=== PATIENT | male | born 1960 | race Caucasian/White ===

== ENCOUNTER → 2019-02-21 | Day surgery (SDC) | payer BC ==
[~2019-02-21] MED LIST: FOLIC ACID1 MG PO; GLUCAGON FOR INJ 1 MG VIAL ONE; HYOSCYAMINE SULFATE 0.5 MG/ML INJ ONE; KEFLEX250 MG; KETAMINE HCL INJ 50 MG/ML 10 ML VIAL ONE; LASIX20 MG PO; LIDOCAINE HCL 2% LOCAL INJ 5 ML SDV VIAL INJ ONE; MIDAZOLAM HCL 2 MG/2 ML VIAL ONE; MULTI-VITAMIN1 EACH; NEOSTIGMINE 1 MG/ML 10ML VIAL ONE; PANTOPRAZOLE SO40 MG; PROPOFOL IV EMULSION 10 MG/ML 50 ML VIAL ONE; THIAMINE; ULTRAM50 MG; VITAMIN D400 UNIT; XIFAXAN200 MG
--- OUTSIDE RECORDS SUMMARY | 2019-02-21 08:56 | XMS REPORT ---
Author Author [facility] Address Unknown Phone Unavailable Care Team Providers Care Harness And Bag Inspector Name Role Phone Unavailable Unavailable Payers Payer Name Policy Type Policy Number Effective Date Expiration Date Problems This patient has no known problems. Allergies, Adverse Reactions, Alerts Allergy Name Allergy Type Status Severity Reaction(s) Onset Date Inactive Date Treating Clinician Comments No Known Allergies DA Active U 2018-12-05 00:00:00 No Known Drug Allergies DA Active U 2018-07-26 00:00:00 No Known Drug Allergies DA Active U 2018-07-25 00:00:00 No Known Allergies DA Active U 2016-04-25 00:00:00 Medications This patient has no known medications. Results Test Description Test Time Test Comments Text Results Atomic Results Result Comments GLUBED 2019-01-04 16:38:00 GLUBED (test code=GLUBED) 197 mg/dL 74-106 Performed by certified knotting machine operator portable at [facility] [id number] 11:30:00* Test Item Value Reference Range Comments GLUBED (test code=GLUBED) 133 mg/dL 74-106 Performed by certified knotting machine operator portable at [facility] COMPREHENSIVE METABOLIC [id number] 05:05:00* Test Item Value Reference Range Comments SODIUM (test code=NA) 139 mmol/L 136-145 POTASSIUM (test code=K) 4.0 mmol/L 3.5-5.1 CHLORIDE (test code=CL) 103.0 mmol/L 98-107 CARBON DIOXIDE (test code=CO2) 31.0 mmol/L 21-32 ANION GAP (test code=GAP) 9.0 10-20 GLUCOSE (test code=GLU) 83 mg/dL 74-106 BLOOD UREA NITROGEN (test code=BUN) 15 mg/dL 7-18 GLOMERULAR FILTRATION RATE (test code=GFR) > 60 mL/min >=60 Estimated GFR by using Modified MDRD formula.Chronic kidney disease is defined as either kidney damageor GFR <60 mL/min/1.73 m2 for >3 months. CREATININE (test code=CREAT) 0.50 mg/dL 0.7-1.3 BUN/CREATININE RATIO (test code=BUN/CREA) 30.0 10-20 TOTAL PROTEIN (test code=PROT) 6.7 gram/dL 6.4-8.2 ALBUMIN (test code=ALB) 3.0 g/dL 3.4-5.0 GLOBULIN (test code=GLOB) 3.7 gram/dL 2.7-4.2 ALBUMIN/GLOBULIN RATIO (test code=A/G) 0.8 0.75-1.50 CALCIUM (test code=CA) 8.7 mg/dL 8.5-10.1 BILIRUBIN TOTAL (test code=BILT) 0.20 mg/dL 0.0-1.0 SGOT/AST (test code=AST) 26 IUnit/L 15-37 SGPT/ALT (test code=ALT) 30 IUnit/L 12-78 ALKALINE PHOSPHATASE TOTAL (test code=ALKP) 107 IUnit/L 45-117 Note change in reference range due to change in reagent. COMPREHENSIVE METABOLIC [id number] 04:58:00* Test Item Value Reference Range Comments SODIUM (test code=NA) 139 mmol/L 136-145 POTASSIUM (test code=K) 4.0 mmol/L 3.5-5.1 CHLORIDE (test code=CL) 103.0 mmol/L 98-107 CARBON DIOXIDE (test code=CO2) mmol/L 21-32 ANION GAP (test code=GAP) 10-20 GLUCOSE (test code=GLU) mg/dL 74-106 BLOOD UREA NITROGEN (test code=BUN) mg/dL 7-18 GLOMERULAR FILTRATION RATE (test code=GFR) mL/min >=60 CREATININE (test code=CREAT) mg/dL 0.7-1.3 BUN/CREATININE RATIO (test code=BUN/CREA) 10-20 TOTAL PROTEIN (test code=PROT) gram/dL 6.4-8.2 ALBUMIN (test code=ALB) g/dL 3.4-5.0 GLOBULIN (test code=GLOB) gram/dL 2.7-4.2 ALBUMIN/GLOBULIN RATIO (test code=A/G) 0.75-1.50 CALCIUM (test code=CA) mg/dL 8.5-10.1 BILIRUBIN TOTAL (test code=BILT) mg/dL 0.0-1.0 SGOT/AST (test code=AST) IUnit/L 15-37 SGPT/ALT (test code=ALT) IUnit/L 12-78 ALKALINE PHOSPHATASE TOTAL (test code=ALKP) IUnit/L 45-117 CBC W/AUTO [id number] 04:58:00* Test Item Value Reference Range Comments WHITE BLOOD CELL (test code=WBC) 13.4 K/mm3 4.5-12.5 RED BLOOD CELL (test code=RBC) 3.69 mill/mm3 4.0-5.8 HEMOGLOBIN (test code=HGB) 10.9 gram/dL 13.0-17.5 HEMATOCRIT (test code=HCT) 36.0 % 42.0-52.0 MEAN CELL VOLUME (test code=MCV) 97.6 fL 80-98 MEAN CELL HGB (test code=MCH) 29.5 picogram 27.0-33.0 MEAN CELL HGB CONCETRATION (test code=MCHC) 30.3 gram/dL 33.0-36.0 RED CELL DISTRIBUTION WIDTH (test code=RDW) 14.6 % 11.6-16.2 RED CELL DISTRIBUTION WIDTH SD (test code=RDW-SD) 52.5 fL 37.0-51.0 PLATELET COUNT (test code=PLT) 563 K/mm3 150-450 MEAN PLATELET VOLUME (test code=MPV) 9.3 fL 6.7-11.0 NEUTROPHIL % (test code=NT%) 64.2 % 39.0-69.0 IMMATURE GRANULOCYTE % (test code=IG%) 1.3 % 0.0-5.0 LYMPHOCYTE % (test code=LY%) 25.0 % 25.0-55.0 MONOCYTE % (test code=MO%) 7.3 % 0.0-10.0 EOSINOPHIL % (test code=EO%) 1.7 % 0.0-5.0 BASOPHIL % (test code=BA%) 0.5 % 0.0-1.0 NUCLEATED RBC % (test code=NRBC%) 0.0 % 0-0 NEUTROPHIL # (test code=NT#) 8.57 K/mm3 1.8-7.7 IMMATURE GRANULOCYTE # (test code=IG#) 0.17 x10 3/uL 0-0.03 LYMPHOCYTE # (test code=LY#) 3.34 K/mm3 1.0-5.0 MONOCYTE # (test code=MO#) 0.98 K/mm3 0-0.8 EOSINOPHIL # (test code=EO#) 0.23 K/mm3 0.0-0.5 BASOPHIL # (test code=BA#) 0.07 K/mm3 0.0-0.2 NUCLEATED RBC # (test code=NRBC#) 0.00 K/mm3 0.0-0.1 COMPREHENSIVE METABOLIC [id number] 04:43:00* Test Item Value Reference Range Comments SODIUM (test code=NA) 137 mmol/L 136-145 POTASSIUM (test code=K) 3.9 mmol/L 3.5-5.1 CHLORIDE (test code=CL) 102.0 mmol/L 98-107 CARBON DIOXIDE (test code=CO2) 32.0 mmol/L 21-32 ANION GAP (test code=GAP) 6.9 10-20 GLUCOSE (test code=GLU) 89 mg/dL 74-106 BLOOD UREA NITROGEN (test code=BUN) 11 mg/dL 7-18 GLOMERULAR FILTRATION RATE (test code=GFR) > 60 mL/min >=60 Estimated GFR by using Modified MDRD formula.Chronic kidney disease is defined as either kidney damageor GFR <60 mL/min/1.73 m2 for >3 months. CREATININE (test code=CREAT) 0.70 mg/dL 0.7-1.3 BUN/CREATININE RATIO (test code=BUN/CREA) 16.8 10-20 TOTAL PROTEIN (test code=PROT) 6.4 gram/dL 6.4-8.2 ALBUMIN (test code=ALB) 2.7 g/dL 3.4-5.0 GLOBULIN (test code=GLOB) 3.7 gram/dL 2.7-4.2 ALBUMIN/GLOBULIN RATIO (test code=A/G) 0.7 0.75-1.50 CALCIUM (test code=CA) 8.3 mg/dL 8.5-10.1 BILIRUBIN TOTAL (test code=BILT) 0.20 mg/dL 0.0-1.0 SGOT/AST (test code=AST) 18 IUnit/L 15-37 SGPT/ALT (test code=ALT) 17 IUnit/L 12-78 ALKALINE PHOSPHATASE TOTAL (test code=ALKP) 90 IUnit/L 45-117 Note change in reference range due to change in reagent. COMPREHENSIVE METABOLIC [id number] 04:35:00* Test Item Value Reference Range Comments SODIUM (test code=NA) 137 mmol/L 136-145 POTASSIUM (test code=K) 3.9 mmol/L 3.5-5.1 CHLORIDE (test code=CL) 102.0 mmol/L 98-107 CARBON DIOXIDE (test code=CO2) mmol/L 21-32 ANION GAP (test code=GAP) 10-20 GLUCOSE (test code=GLU) mg/dL 74-106 BLOOD UREA NITROGEN (test code=BUN) mg/dL 7-18 GLOMERULAR FILTRATION RATE (test code=GFR) mL/min >=60 CREATININE (test code=CREAT) mg/dL 0.7-1.3 BUN/CREATININE RATIO (test code=BUN/CREA) 10-20 TOTAL PROTEIN (test code=PROT) gram/dL 6.4-8.2 ALBUMIN (test code=ALB) g/dL 3.4-5.0 GLOBULIN (test code=GLOB) gram/dL 2.7-4.2 ALBUMIN/GLOBULIN RATIO (test code=A/G) 0.75-1.50 CALCIUM (test code=CA) mg/dL 8.5-10.1 BILIRUBIN TOTAL (test code=BILT) mg/dL 0.0-1.0 SGOT/AST (test code=AST) IUnit/L 15-37 SGPT/ALT (test code=ALT) IUnit/L 12-78 ALKALINE PHOSPHATASE TOTAL (test code=ALKP) IUnit/L 45-117 CBC W/AUTO [id number] 04:25:00* Test Item Value Reference Range Comments WHITE BLOOD CELL (test code=WBC) 15.0 K/mm3 4.5-12.5 RED BLOOD CELL (test code=RBC) 3.44 mill/mm3 4.0-5.8 HEMOGLOBIN (test code=HGB) 10.2 gram/dL 13.0-17.5 HEMATOCRIT (test code=HCT) 33.4 % 42.0-52.0 MEAN CELL VOLUME (test code=MCV) 97.1 fL 80-98 MEAN CELL HGB (test code=MCH) 29.7 picogram 27.0-33.0 MEAN CELL HGB CONCETRATION (test code=MCHC) 30.5 gram/dL 33.0-36.0 RED CELL DISTRIBUTION WIDTH (test code=RDW) 14.5 % 11.6-16.2 RED CELL DISTRIBUTION WIDTH SD (test code=RDW-SD) 50.7 fL 37.0-51.0 PLATELET COUNT (test code=PLT) 592 K/mm3 150-450 MEAN PLATELET VOLUME (test code=MPV) 9.2 fL 6.7-11.0 NEUTROPHIL % (test code=NT%) 70.1 % 39.0-69.0 IMMATURE GRANULOCYTE % (test code=IG%) 1.1 % 0.0-5.0 LYMPHOCYTE % (test code=LY%) 20.4 % 25.0-55.0 MONOCYTE % (test code=MO%) 7.2 % 0.0-10.0 EOSINOPHIL % (test code=EO%) 0.9 % 0.0-5.0 BASOPHIL % (test code=BA%) 0.3 % 0.0-1.0 NUCLEATED RBC % (test code=NRBC%) 0.0 % 0-0 NEUTROPHIL # (test code=NT#) 10.53 K/mm3 1.8-7.7 IMMATURE GRANULOCYTE # (test code=IG#) 0.17 x10 3/uL 0-0.03 LYMPHOCYTE # (test code=LY#) 3.07 K/mm3 1.0-5.0 MONOCYTE # (test code=MO#) 1.09 K/mm3 0-0.8 EOSINOPHIL # (test code=EO#) 0.14 K/mm3 0.0-0.5 BASOPHIL # (test code=BA#) 0.04 K/mm3 0.0-0.2 NUCLEATED RBC # (test code=NRBC#) 0.00 K/mm3 0.0-0.1 MANUAL DIFF REQUIRED (test code=MDIFF) NO [id number] 15:56:00* Test Item Value Reference Range Comments GLUBED (test code=GLUBED) 132 mg/dL 74-106 Performed by certified knotting machine operator portable at [facility] CBC W/MANUAL [id number] 15:37:00* Test Item Value Reference Range Comments WHITE BLOOD CELL (test code=WBC) 12.4 K/mm3 4.5-12.5 RED BLOOD CELL (test code=RBC) 3.49 mill/mm3 4.0-5.8 HEMOGLOBIN (test code=HGB) 10.5 gram/dL 13.0-17.5 HEMATOCRIT (test code=HCT) 34.0 % 42.0-52.0 MEAN CELL VOLUME (test code=MCV) 97.4 fL 80-98 MEAN CELL HGB (test code=MCH) 30.1 picogram 27.0-33.0 MEAN CELL HGB CONCETRATION (test code=MCHC) 30.9 gram/dL 33.0-36.0 RED CELL DISTRIBUTION WIDTH (test code=RDW) 13.9 % 11.6-16.2 RED CELL DISTRIBUTION WIDTH SD (test code=RDW-SD) 49.2 fL 37.0-51.0 PLATELET COUNT (test code=PLT) 600 K/mm3 150-450 MEAN PLATELET VOLUME (test code=MPV) 9.2 fL 6.7-11.0 IMMATURE GRANULOCYTE % (test code=IG%) 0.8 % 0.0-5.0 NUCLEATED RBC % (test code=NRBC%) 0.0 % 0-0 NEUTROPHIL # (test code=NT#) 8.09 K/mm3 1.8-7.7 IMMATURE GRANULOCYTE # (test code=IG#) 0.10 x10 3/uL 0-0.03 LYMPHOCYTE # (test code=LY#) 2.95 K/mm3 1.0-5.0 MONOCYTE # (test code=MO#) 1.16 K/mm3 0-0.8 EOSINOPHIL # (test code=EO#) 0.08 K/mm3 0.0-0.5 BASOPHIL # (test code=BA#) 0.05 K/mm3 0.0-0.2 NUCLEATED RBC # (test code=NRBC#) 0.00 K/mm3 0.0-0.1 MANUAL DIFF REQUIRED (test code=MDIFF) YES STAIN ACCEPTABILITY (test code=STN ACCEPTABLE) STAIN ACCEPTABLE TOTAL CELLS COUNTED (test code=TCC) 100 #CELLS SEGMENTED NEUTROPHILS (test code=SEG) 60 % 39-69 BAND NEUTROPHIL (test code=BAND) 2 % 0-10 LYMPHOCYTE (test code=LYMPH) 27 % 25-55 MONOCYTE (test code=MON) 11 % 0-10 PLATELET ESTIMATE (test code=PLTEST) INCREASED PLATELET MORPHOLOGY (test code=PLTMORPH) NORMAL - XR CHEST 1 [id number] 10:16:00 FAX: Ethel Linder MD [phone] [place]: St: ADM FAX: Emre Fraire MD [phone] Name: STACY PIZARRO [facility] : 1960 Age/S: 58/M [address] [facility] Unit #: [id number] Loc: [place] [address] Phys: Emre Olivo MD Acct: [id number] Dis Date: Status: ADM IN PHONE #: [phone] Exam Date: 12/30/2018 0940 FAX #: [phone] Reason: atelecctasis EXAMS: CPT CODE: [id number] XR CHEST 1 V [id number] HISTORY: Atelectasis. COMPARISON: December 24, 2018. Right catheter has been removed. Mild scarring. Small left effusion with dependent changes is improved. Right lung is clear. Cardiomegaly. IMPRESSION: Trace to small left effusion with subsegmental atelectasis. No infiltrates or congestion. at 1016 Reported and signed by: Dino Santos M.D. CC: Ethel Mary MD; Emre Olivo MD Technologist: Meeta Grier(Esteban) Trnscrd Date/Time/By: 12/30/2018 (101 6) : By: [email or web address] Orig Print D/T: S: 12/30/2018 (1014) PAGE 1 Signed Report [id number] 07:20:00* Test Item Value Reference Range Comments GLUBED (test code=GLUBED) 87 mg/dL 74-106 Performed by certified knotting machine operator portable at [facility] CBC W/MANUAL [id number] 04:53:00* Test Item Value Reference Range Comments WHITE BLOOD CELL (test code=WBC) 12.4 K/mm3 4.5-12.5 RED BLOOD CELL (test code=RBC) 3.49 mill/mm3 4.0-5.8 HEMOGLOBIN (test code=HGB) 10.5 gram/dL 13.0-17.5 HEMATOCRIT (test code=HCT) 34.0 % 42.0-52.0 MEAN CELL VOLUME (test code=MCV) 97.4 fL 80-98 MEAN CELL HGB (test code=MCH) 30.1 picogram 27.0-33.0 MEAN CELL HGB CONCETRATION (test code=MCHC) 30.9 gram/dL 33.0-36.0 RED CELL DISTRIBUTION WIDTH (test code=RDW) 13.9 % 11.6-16.2 RED CELL DISTRIBUTION WIDTH SD (test code=RDW-SD) 49.2 fL 37.0-51.0 PLATELET COUNT (test code=PLT) 600 K/mm3 150-450 MEAN PLATELET VOLUME (test code=MPV) 9.2 fL 6.7-11.0 IMMATURE GRANULOCYTE % (test code=IG%) 0.8 % 0.0-5.0 NUCLEATED RBC % (test code=NRBC%) 0.0 % 0-0 NEUTROPHIL # (test code=NT#) 8.09 K/mm3 1.8-7.7 IMMATURE GRANULOCYTE # (test code=IG#) 0.10 x10 3/uL 0-0.03 LYMPHOCYTE # (test code=LY#) 2.95 K/mm3 1.0-5.0 MONOCYTE # (test code=MO#) 1.16 K/mm3 0-0.8 EOSINOPHIL # (test code=EO#) 0.08 K/mm3 0.0-0.5 BASOPHIL # (test code=BA#) 0.05 K/mm3 0.0-0.2 NUCLEATED RBC # (test code=NRBC#) 0.00 K/mm3 0.0-0.1 MANUAL DIFF REQUIRED (test code=MDIFF) YES STAIN ACCEPTABILITY (test code=STN ACCEPTABLE) STAIN ACCEPTABLE TOTAL CELLS COUNTED (test code=TCC) 100 #CELLS SEGMENTED NEUTROPHILS (test code=SEG) 60 % 39-69 BAND NEUTROPHIL (test code=BAND) 2 % 0-10 LYMPHOCYTE (test code=LYMPH) 27 % 25-55 MONOCYTE (test code=MON) 11 % 0-10 PLATELET ESTIMATE (test code=PLTEST) INCREASED PLATELET MORPHOLOGY (test code=PLTMORPH) BASIC METABOLIC [id number] 04:49:00* Test Item Value Reference Range Comments SODIUM (test code=NA) 140 mmol/L 136-145 POTASSIUM (test code=K) 4.1 mmol/L 3.5-5.1 CHLORIDE (test code=CL) 104.0 mmol/L 98-107 CARBON DIOXIDE (test code=CO2) 27.0 mmol/L 21-32 ANION GAP (test code=GAP) 13.1 10-20 GLUCOSE (test code=GLU) 85 mg/dL 74-106 BLOOD UREA NITROGEN (test code=BUN) 12 mg/dL 7-18 GLOMERULAR FILTRATION RATE (test code=GFR) > 60 mL/min >=60 Estimated GFR by using Modified MDRD formula.Chronic kidney disease is defined as either kidney damageor GFR <60 mL/min/1.73 m2 for >3 months. CREATININE (test code=CREAT) 0.50 mg/dL 0.7-1.3 BUN/CREATININE RATIO (test code=BUN/CREA) 22.1 10-20 CALCIUM (test code=CA) 8.6 mg/dL 8.5-10.1 [id number] 04:49:00* Test Item Value Reference Range Comments MAGNESIUM (test code=MAG) 1.9 mg/dL 1.8-2.4 BASIC METABOLIC [id number] 04:43:00* Test Item Value Reference Range Comments SODIUM (test code=NA) 140 mmol/L 136-145 POTASSIUM (test code=K) 4.1 mmol/L 3.5-5.1 CHLORIDE (test code=CL) 104.0 mmol/L 98-107 CARBON DIOXIDE (test code=CO2) mmol/L 21-32 ANION GAP (test code=GAP) 10-20 GLUCOSE (test code=GLU) mg/dL 74-106 BLOOD UREA NITROGEN (test code=BUN) mg/dL 7-18 GLOMERULAR FILTRATION RATE (test code=GFR) mL/min >=60 CREATININE (test code=CREAT) mg/dL 0.7-1.3 BUN/CREATININE RATIO (test code=BUN/CREA) 10-20 CALCIUM (test code=CA) mg/dL 8.5-10.1 [id number] 04:43:00* Test Item Value Reference Range Comments MAGNESIUM (test code=MAG) mg/dL 1.8-2.4 CBC W/MANUAL [id number] 04:31:00* Test Item Value Reference Range Comments WHITE BLOOD CELL (test code=WBC) 12.4 K/mm3 4.5-12.5 RED BLOOD CELL (test code=RBC) 3.49 mill/mm3 4.0-5.8 HEMOGLOBIN (test code=HGB) 10.5 gram/dL 13.0-17.5 HEMATOCRIT (test code=HCT) 34.0 % 42.0-52.0 MEAN CELL VOLUME (test code=MCV) 97.4 fL 80-98 MEAN CELL HGB (test code=MCH) 30.1 picogram 27.0-33.0 MEAN CELL HGB CONCETRATION (test code=MCHC) 30.9 gram/dL 33.0-36.0 RED CELL DISTRIBUTION WIDTH (test code=RDW) 13.9 % 11.6-16.2 RED CELL DISTRIBUTION WIDTH SD (test code=RDW-SD) 49.2 fL 37.0-51.0 PLATELET COUNT (test code=PLT) 600 K/mm3 150-450 MEAN PLATELET VOLUME (test code=MPV) 9.2 fL 6.7-11.0 IMMATURE GRANULOCYTE % (test code=IG%) 0.8 % 0.0-5.0 NUCLEATED RBC % (test code=NRBC%) 0.0 % 0-0 NEUTROPHIL # (test code=NT#) 8.09 K/mm3 1.8-7.7 IMMATURE GRANULOCYTE # (test code=IG#) 0.10 x10 3/uL 0-0.03 LYMPHOCYTE # (test code=LY#) 2.95 K/mm3 1.0-5.0 MONOCYTE # (test code=MO#) 1.16 K/mm3 0-0.8 EOSINOPHIL # (test code=EO#) 0.08 K/mm3 0.0-0.5 BASOPHIL # (test code=BA#) 0.05 K/mm3 0.0-0.2 NUCLEATED RBC # (test code=NRBC#) 0.00 K/mm3 0.0-0.1 MANUAL DIFF REQUIRED (test code=MDIFF) YES STAIN ACCEPTABILITY (test code=STN ACCEPTABLE) TOTAL CELLS COUNTED (test code=TCC) #CELLS SEGMENTED NEUTROPHILS (test code=SEG) % 39-69 LYMPHOCYTE (test code=LYMPH) % 25-55 MONOCYTE (test code=MON) % 0-10 MORPHOLOGY COMMENT (test code=MOC) PLATELET ESTIMATE (test code=PLTEST) PLATELET MORPHOLOGY (test code=PLTMORPH) CBC W/MANUAL [id number] 04:28:00* Test Item Value Reference Range Comments WHITE BLOOD CELL (test code=WBC) 12.4 K/mm3 4.5-12.5 RED BLOOD CELL (test code=RBC) 3.49 mill/mm3 4.0-5.8 HEMOGLOBIN (test code=HGB) 10.5 gram/dL 13.0-17.5 HEMATOCRIT (test code=HCT) 34.0 % 42.0-52.0 MEAN CELL VOLUME (test code=MCV) 97.4 fL 80-98 MEAN CELL HGB (test code=MCH) 30.1 picogram 27.0-33.0 MEAN CELL HGB CONCETRATION (test code=MCHC) 30.9 gram/dL 33.0-36.0 RED CELL DISTRIBUTION WIDTH (test code=RDW) 13.9 % 11.6-16.2 RED CELL DISTRIBUTION WIDTH SD (test code=RDW-SD) 49.2 fL 37.0-51.0 PLATELET COUNT (test code=PLT) 600 K/mm3 150-450 MEAN PLATELET VOLUME (test code=MPV) 9.2 fL 6.7-11.0 IMMATURE GRANULOCYTE % (test code=IG%) 0.8 % 0.0-5.0 NUCLEATED RBC % (test code=NRBC%) 0.0 % 0-0 NEUTROPHIL # (test code=NT#) 8.09 K/mm3 1.8-7.7 IMMATURE GRANULOCYTE # (test code=IG#) 0.10 x10 3/uL 0-0.03 LYMPHOCYTE # (test code=LY#) 2.95 K/mm3 1.0-5.0 MONOCYTE # (test code=MO#) 1.16 K/mm3 0-0.8 EOSINOPHIL # (test code=EO#) 0.08 K/mm3 0.0-0.5 BASOPHIL # (test code=BA#) 0.05 K/mm3 0.0-0.2 NUCLEATED RBC # (test code=NRBC#) 0.00 K/mm3 0.0-0.1 MANUAL DIFF REQUIRED (test code=MDIFF) YES STAIN ACCEPTABILITY (test code=STN ACCEPTABLE) TOTAL CELLS COUNTED (test code=TCC) #CELLS SEGMENTED NEUTROPHILS (test code=SEG) % 39-69 LYMPHOCYTE (test code=LYMPH) % 25-55 MONOCYTE (test code=MON) % 0-10 EOSINOPHIL (test code=EOS) % 0.0-5.0 CABOT RINGS (test code=CAB) MORPHOLOGY COMMENT (test code=MOC) PLATELET ESTIMATE (test code=PLTEST) PLATELET MORPHOLOGY (test code=PLTMORPH) CBC W/MANUAL [id number] 04:28:00* Test Item Value Reference Range Comments WHITE BLOOD CELL (test code=WBC) 12.4 K/mm3 4.5-12.5 RED BLOOD CELL (test code=RBC) 3.49 mill/mm3 4.0-5.8 HEMOGLOBIN (test code=HGB) 10.5 gram/dL 13.0-17.5 HEMATOCRIT (test code=HCT) 34.0 % 42.0-52.0 MEAN CELL VOLUME (test code=MCV) 97.4 fL 80-98 MEAN CELL HGB (test code=MCH) 30.1 picogram 27.0-33.0 MEAN CELL HGB CONCETRATION (test code=MCHC) 30.9 gram/dL 33.0-36.0 RED CELL DISTRIBUTION WIDTH (test code=RDW) 13.9 % 11.6-16.2 RED CELL DISTRIBUTION WIDTH SD (test code=RDW-SD) 49.2 fL 37.0-51.0 PLATELET COUNT (test code=PLT) 600 K/mm3 150-450 MEAN PLATELET VOLUME (test code=MPV) 9.2 fL 6.7-11.0 IMMATURE GRANULOCYTE % (test code=IG%) 0.8 % 0.0-5.0 NUCLEATED RBC % (test code=NRBC%) 0.0 % 0-0 NEUTROPHIL # (test code=NT#) 8.09 K/mm3 1.8-7.7 IMMATURE GRANULOCYTE # (test code=IG#) 0.10 x10 3/uL 0-0.03 LYMPHOCYTE # (test code=LY#) 2.95 K/mm3 1.0-5.0 MONOCYTE # (test code=MO#) 1.16 K/mm3 0-0.8 EOSINOPHIL # (test code=EO#) 0.08 K/mm3 0.0-0.5 BASOPHIL # (test code=BA#) 0.05 K/mm3 0.0-0.2 NUCLEATED RBC # (test code=NRBC#) 0.00 K/mm3 0.0-0.1 MANUAL DIFF REQUIRED (test code=MDIFF) YES STAIN ACCEPTABILITY (test code=STN ACCEPTABLE) TOTAL CELLS COUNTED (test code=TCC) #CELLS SEGMENTED NEUTROPHILS (test code=SEG) % 39-69 LYMPHOCYTE (test code=LYMPH) % 25-55 MONOCYTE (test code=MON) % 0-10 EOSINOPHIL (test code=EOS) % 0.0-5.0 CABOT RINGS (test code=CAB) MORPHOLOGY COMMENT (test code=MOC) PLATELET ESTIMATE (test code=PLTEST) PLATELET MORPHOLOGY (test code=PLTMORPH) CBC W/MANUAL [id number] 04:28:00* Test Item Value Reference Range Comments WHITE BLOOD CELL (test code=WBC) 12.4 K/mm3 4.5-12.5 RED BLOOD CELL (test code=RBC) 3.49 mill/mm3 4.0-5.8 HEMOGLOBIN (test code=HGB) 10.5 gram/dL 13.0-17.5 HEMATOCRIT (test code=HCT) 34.0 % 42.0-52.0 MEAN CELL VOLUME (test code=MCV) 97.4 fL 80-98 MEAN CELL HGB (test code=MCH) 30.1 picogram 27.0-33.0 MEAN CELL HGB CONCETRATION (test code=MCHC) 30.9 gram/dL 33.0-36.0 RED CELL DISTRIBUTION WIDTH (test code=RDW) 13.9 % 11.6-16.2 RED CELL DISTRIBUTION WIDTH SD (test code=RDW-SD) 49.2 fL 37.0-51.0 PLATELET COUNT (test code=PLT) 600 K/mm3 150-450 MEAN PLATELET VOLUME (test code=MPV) 9.2 fL 6.7-11.0 IMMATURE GRANULOCYTE % (test code=IG%) 0.8 % 0.0-5.0 NUCLEATED RBC % (test code=NRBC%) 0.0 % 0-0 NEUTROPHIL # (test code=NT#) 8.09 K/mm3 1.8-7.7 IMMATURE GRANULOCYTE # (test code=IG#) 0.10 x10 3/uL 0-0.03 LYMPHOCYTE # (test code=LY#) 2.95 K/mm3 1.0-5.0 MONOCYTE # (test code=MO#) 1.16 K/mm3 0-0.8 EOSINOPHIL # (test code=EO#) 0.08 K/mm3 0.0-0.5 BASOPHIL # (test code=BA#) 0.05 K/mm3 0.0-0.2 NUCLEATED RBC # (test code=NRBC#) 0.00 K/mm3 0.0-0.1 MANUAL DIFF REQUIRED (test code=MDIFF) YES STAIN ACCEPTABILITY (test code=STN ACCEPTABLE) TOTAL CELLS COUNTED (test code=TCC) #CELLS SEGMENTED NEUTROPHILS (test code=SEG) % 39-69 LYMPHOCYTE (test code=LYMPH) % 25-55 MONOCYTE (test code=MON) % 0-10 EOSINOPHIL (test code=EOS) % 0.0-5.0 MORPHOLOGY COMMENT (test code=MOC) PLATELET ESTIMATE (test code=PLTEST) PLATELET MORPHOLOGY (test code=PLTMORPH) CBC W/MANUAL [id number] 04:28:00* Test Item Value Reference Range Comments WHITE BLOOD CELL (test code=WBC) 12.4 K/mm3 4.5-12.5 RED BLOOD CELL (test code=RBC) 3.49 mill/mm3 4.0-5.8 HEMOGLOBIN (test code=HGB) 10.5 gram/dL 13.0-17.5 HEMATOCRIT (test code=HCT) 34.0 % 42.0-52.0 MEAN CELL VOLUME (test code=MCV) 97.4 fL 80-98 MEAN CELL HGB (test code=MCH) 30.1 picogram 27.0-33.0 MEAN CELL HGB CONCETRATION (test code=MCHC) 30.9 gram/dL 33.0-36.0 RED CELL DISTRIBUTION WIDTH (test code=RDW) 13.9 % 11.6-16.2 RED CELL DISTRIBUTION WIDTH SD (test code=RDW-SD) 49.2 fL 37.0-51.0 PLATELET COUNT (test code=PLT) 600 K/mm3 150-450 MEAN PLATELET VOLUME (test code=MPV) 9.2 fL 6.7-11.0 IMMATURE GRANULOCYTE % (test code=IG%) 0.8 % 0.0-5.0 NUCLEATED RBC % (test code=NRBC%) 0.0 % 0-0 NEUTROPHIL # (test code=NT#) 8.09 K/mm3 1.8-7.7 IMMATURE GRANULOCYTE # (test code=IG#) 0.10 x10 3/uL 0-0.03 LYMPHOCYTE # (test code=LY#) 2.95 K/mm3 1.0-5.0 MONOCYTE # (test code=MO#) 1.16 K/mm3 0-0.8 EOSINOPHIL # (test code=EO#) 0.08 K/mm3 0.0-0.5 BASOPHIL # (test code=BA#) 0.05 K/mm3 0.0-0.2 NUCLEATED RBC # (test code=NRBC#) 0.00 K/mm3 0.0-0.1 MANUAL DIFF REQUIRED (test code=MDIFF) YES STAIN ACCEPTABILITY (test code=STN ACCEPTABLE) TOTAL CELLS COUNTED (test code=TCC) #CELLS SEGMENTED NEUTROPHILS (test code=SEG) % 39-69 LYMPHOCYTE (test code=LYMPH) % 25-55 MONOCYTE (test code=MON) % 0-10 EOSINOPHIL (test code=EOS) % 0.0-5.0 CABOT RINGS (test code=CAB) MORPHOLOGY COMMENT (test code=MOC) PLATELET ESTIMATE (test code=PLTEST) PLATELET MORPHOLOGY (test code=PLTMORPH) [id number] 18:28:00* Test Item Value Reference Range Comments GLUBED (test code=GLUBED) 122 mg/dL 74-106 Performed by certified knotting machine operator portable at [facility] [id number] 12:39:00* Test Item Value Reference Range Comments GLUBED (test code=GLUBED) 120 mg/dL 74-106 Performed by certified knotting machine operator portable at [facility] VANCOMYCIN [id number] 10:05:00* Test Item Value Reference Range Comments VANCOMYCIN TROUGH (test code=VANCT) 8.6 ug/mL 08-03 [id number] 07:34:00* Test Item Value Reference Range Comments GLUBED (test code=GLUBED) 94 mg/dL 74-106 Performed by certified knotting machine operator portable at [facility] [id number] 23:10:00* Test Item Value Reference Range Comments GLUBED (test code=GLUBED) 89 mg/dL 74-106 Performed by certified knotting machine operator portable at [facility] PROCALCITONIN (PCT)2018-12-28 13:08:00* Test Item Value Reference Range Comments PROCALCITONIN (PCT) (test code=PROCAL) 0.16 ng/ml Concentration Interpretation (ng/mL) <0.51 Sepsis is not likely. Local bacterial infection is possible. (LOW RISK for progression to Sepsis) 0.51 - 2.00 Sepsis is possible, but other conditions are known to elevate PCT as well. (MODERATE RISK for progression to Sepsis) > 2.00 Sepsis is likely, unless other causes are known. (HIGH RISK for progression to Severe Sepsis or Septic Shock) 10.00 High likelihood of Severe Sepsis or Septic or higher Shock. *Increased PCT levels may not always be related to systemic bacterial infection.*Low PCT levels do not automatically exclude the presence of bacterial infection.*All results should be interpreted taking into account the patients history. BASIC METABOLIC [id number] 08:27:00* Test Item Value Reference Range Comments SODIUM (test code=NA) 135 mmol/L 136-145 POTASSIUM (test code=K) 4.0 mmol/L 3.5-5.1 CHLORIDE (test code=CL) 101.0 mmol/L 98-107 CARBON DIOXIDE (test code=CO2) 22.0 mmol/L 21-32 ANION GAP (test code=GAP) 16.0 10-20 GLUCOSE (test code=GLU) 70 mg/dL 74-106 BLOOD UREA NITROGEN (test code=BUN) 6 mg/dL 7-18 GLOMERULAR FILTRATION RATE (test code=GFR) > 60 mL/min >=60 Estimated GFR by using Modified MDRD formula.Chronic kidney disease is defined as either kidney damageor GFR <60 mL/min/1.73 m2 for >3 months. CREATININE (test code=CREAT) 0.40 mg/dL 0.7-1.3 BUN/CREATININE RATIO (test code=BUN/CREA) 14.0 10-20 CALCIUM (test code=CA) 7.5 mg/dL 8.5-10.1 [id number] 08:27:00* Test Item Value Reference Range Comments MAGNESIUM (test code=MAG) 1.8 mg/dL 1.8-2.4 CBC W/AUTO [id number] 07:51:00* Test Item Value Reference Range Comments WHITE BLOOD CELL (test code=WBC) 12.7 K/mm3 4.5-12.5 RED BLOOD CELL (test code=RBC) 3.33 mill/mm3 4.0-5.8 HEMOGLOBIN (test code=HGB) 10.0 gram/dL 13.0-17.5 HEMATOCRIT (test code=HCT) 32.2 % 42.0-52.0 MEAN CELL VOLUME (test code=MCV) 96.7 fL 80-98 MEAN CELL HGB (test code=MCH) 30.0 picogram 27.0-33.0 MEAN CELL HGB CONCETRATION (test code=MCHC) 31.1 gram/dL 33.0-36.0 RED CELL DISTRIBUTION WIDTH (test code=RDW) 14.1 % 11.6-16.2 RED CELL DISTRIBUTION WIDTH SD (test code=RDW-SD) 50.6 fL 37.0-51.0 PLATELET COUNT (test code=PLT) 590 K/mm3 150-450 MEAN PLATELET VOLUME (test code=MPV) 9.5 fL 6.7-11.0 NEUTROPHIL % (test code=NT%) 68.5 % 39.0-69.0 IMMATURE GRANULOCYTE % (test code=IG%) 2.0 % 0.0-5.0 LYMPHOCYTE % (test code=LY%) 12.4 % 25.0-55.0 MONOCYTE % (test code=MO%) 12.4 % 0.0-10.0 EOSINOPHIL % (test code=EO%) 4.0 % 0.0-5.0 BASOPHIL % (test code=BA%) 0.7 % 0.0-1.0 NUCLEATED RBC % (test code=NRBC%) 0.0 % 0-0 NEUTROPHIL # (test code=NT#) 8.70 K/mm3 1.8-7.7 IMMATURE GRANULOCYTE # (test code=IG#) 0.26 x10 3/uL 0-0.03 LYMPHOCYTE # (test code=LY#) 1.58 K/mm3 1.0-5.0 MONOCYTE # (test code=MO#) 1.58 K/mm3 0-0.8 EOSINOPHIL # (test code=EO#) 0.51 K/mm3 0.0-0.5 BASOPHIL # (test code=BA#) 0.09 K/mm3 0.0-0.2 NUCLEATED RBC # (test code=NRBC#) 0.00 K/mm3 0.0-0.1 MANUAL DIFF REQUIRED (test code=MDIFF) NO [id number] 06:44:00* Test Item Value Reference Range Comments GLUBED (test code=GLUBED) 75 mg/dL 74-106 Performed by certified knotting machine operator portable at [facility] VANCOMYCIN [id number] 21:43:00* Test Item Value Reference Range Comments VANCOMYCIN TROUGH (test code=VANCT) 16.9 ug/mL 10-20 [id number] 17:27:00* Test Item Value Reference Range Comments GLUBED (test code=GLUBED) 89 mg/dL 74-106 Performed by certified knotting machine operator portable at [facility] [id number] 12:43:00* Test Item Value Reference Range Comments GLUBED (test code=GLUBED) 81 mg/dL 74-106 Performed by certified knotting machine operator portable at [facility] BASIC METABOLIC [id number] 12:26:00* Test Item Value Reference Range Comments SODIUM (test code=NA) 135 mmol/L 136-145 POTASSIUM (test code=K) 4.5 mmol/L 3.5-5.1 CHLORIDE (test code=CL) 100.0 mmol/L 98-107 CARBON DIOXIDE (test code=CO2) 24.0 mmol/L 21-32 ANION GAP (test code=GAP) 15.5 10-20 GLUCOSE (test code=GLU) 91 mg/dL 74-106 BLOOD UREA NITROGEN (test code=BUN) 7 mg/dL 7-18 GLOMERULAR FILTRATION RATE (test code=GFR) > 60 mL/min >=60 Estimated GFR by using Modified MDRD formula.Chronic kidney disease is defined as either kidney damageor GFR <60 mL/min/1.73 m2 for >3 months. CREATININE (test code=CREAT) 0.60 mg/dL 0.7-1.3 BUN/CREATININE RATIO (test code=BUN/CREA) 12.7 10-20 CALCIUM (test code=CA) 8.6 mg/dL 8.5-10.1 BASIC METABOLIC [id number] 12:19:00* Test Item Value Reference Range Comments SODIUM (test code=NA) 135 mmol/L 136-145 POTASSIUM (test code=K) 4.5 mmol/L 3.5-5.1 CHLORIDE (test code=CL) 100.0 mmol/L 98-107 CARBON DIOXIDE (test code=CO2) mmol/L 21-32 ANION GAP (test code=GAP) 10-20 GLUCOSE (test code=GLU) mg/dL 74-106 BLOOD UREA NITROGEN (test code=BUN) mg/dL 7-18 GLOMERULAR FILTRATION RATE (test code=GFR) mL/min >=60 CREATININE (test code=CREAT) mg/dL 0.7-1.3 BUN/CREATININE RATIO (test code=BUN/CREA) 10-20 CALCIUM (test code=CA) mg/dL 8.5-10.1 CBC W/AUTO [id number] 12:03:00* Test Item Value Reference Range Comments WHITE BLOOD CELL (test code=WBC) 17.2 K/mm3 4.5-12.5 RED BLOOD CELL (test code=RBC) 3.79 mill/mm3 4.0-5.8 HEMOGLOBIN (test code=HGB) 11.7 gram/dL 13.0-17.5 HEMATOCRIT (test code=HCT) 37.8 % 42.0-52.0 MEAN CELL VOLUME (test code=MCV) 99.7 fL 80-98 MEAN CELL HGB (test code=MCH) 30.9 picogram 27.0-33.0 MEAN CELL HGB CONCETRATION (test code=MCHC) 31.0 gram/dL 33.0-36.0 RED CELL DISTRIBUTION WIDTH (test code=RDW) 14.2 % 11.6-16.2 RED CELL DISTRIBUTION WIDTH SD (test code=RDW-SD) 52.4 fL 37.0-51.0 PLATELET COUNT (test code=PLT) 600 K/mm3 150-450 MEAN PLATELET VOLUME (test code=MPV) 9.9 fL 6.7-11.0 NEUTROPHIL % (test code=NT%) 69.5 % 39.0-69.0 IMMATURE GRANULOCYTE % (test code=IG%) 1.9 % 0.0-5.0 LYMPHOCYTE % (test code=LY%) 13.9 % 25.0-55.0 MONOCYTE % (test code=MO%) 10.7 % 0.0-10.0 EOSINOPHIL % (test code=EO%) 3.2 % 0.0-5.0 BASOPHIL % (test code=BA%) 0.8 % 0.0-1.0 NUCLEATED RBC % (test code=NRBC%) 0.0 % 0-0 NEUTROPHIL # (test code=NT#) 11.94 K/mm3 1.8-7.7 IMMATURE GRANULOCYTE # (test code=IG#) 0.32 x10 3/uL 0-0.03 LYMPHOCYTE # (test code=LY#) 2.39 K/mm3 1.0-5.0 MONOCYTE # (test code=MO#) 1.83 K/mm3 0-0.8 EOSINOPHIL # (test code=EO#) 0.55 K/mm3 0.0-0.5 BASOPHIL # (test code=BA#) 0.13 K/mm3 0.0-0.2 NUCLEATED RBC # (test code=NRBC#) 0.00 K/mm3 0.0-0.1 MANUAL DIFF REQUIRED (test code=MDIFF) NO [id number] 06:22:00* Test Item Value Reference Range Comments GLUBED (test code=GLUBED) 89 mg/dL 74-106 Performed by certified knotting machine operator portable at [facility] [id number] 22:18:00* Test Item Value Reference Range Comments GLUBED (test code=GLUBED) 125 mg/dL 74-106 Performed by certified knotting machine operator portable at [facility] [id number] 17:50:00* Test Item Value Reference Range Comments GLUBED (test code=GLUBED) 88 mg/dL 74-106 Performed by certified knotting machine operator portable at [facility] [id number] 12:24:00* Test Item Value Reference Range Comments GLUBED (test code=GLUBED) 107 mg/dL 74-106 Performed by certified knotting machine operator portable at [facility] BASIC METABOLIC [id number] 12:06:00* Test Item Value Reference Range Comments SODIUM (test code=NA) 135 mmol/L 136-145 POTASSIUM (test code=K) 4.4 mmol/L 3.5-5.1 CHLORIDE (test code=CL) 98.0 mmol/L 98-107 CARBON DIOXIDE (test code=CO2) 29.0 mmol/L 21-32 ANION GAP (test code=GAP) 12.4 10-20 GLUCOSE (test code=GLU) 101 mg/dL 74-106 BLOOD UREA NITROGEN (test code=BUN) 7 mg/dL 7-18 GLOMERULAR FILTRATION RATE (test code=GFR) > 60 mL/min >=60 Estimated GFR by using Modified MDRD formula.Chronic kidney disease is defined as either kidney damageor GFR <60 mL/min/1.73 m2 for >3 months. CREATININE (test code=CREAT) 0.50 mg/dL 0.7-1.3 BUN/CREATININE RATIO (test code=BUN/CREA) 13.4 10-20 CALCIUM (test code=CA) 8.5 mg/dL 8.5-10.1 BASIC METABOLIC [id number] 12:03:00* Test Item Value Reference Range Comments SODIUM (test code=NA) 135 mmol/L 136-145 POTASSIUM (test code=K) 4.4 mmol/L 3.5-5.1 CHLORIDE (test code=CL) 98.0 mmol/L 98-107 CARBON DIOXIDE (test code=CO2) mmol/L 21-32 ANION GAP (test code=GAP) 10-20 GLUCOSE (test code=GLU) mg/dL 74-106 BLOOD UREA NITROGEN (test code=BUN) mg/dL 7-18 GLOMERULAR FILTRATION RATE (test code=GFR) mL/min >=60 CREATININE (test code=CREAT) mg/dL 0.7-1.3 BUN/CREATININE RATIO (test code=BUN/CREA) 10-20 CALCIUM (test code=CA) mg/dL 8.5-10.1 CBC W/AUTO [id number] 11:52:00* Test Item Value Reference Range Comments WHITE BLOOD CELL (test code=WBC) 16.7 K/mm3 4.5-12.5 RED BLOOD CELL (test code=RBC) 3.35 mill/mm3 4.0-5.8 HEMOGLOBIN (test code=HGB) 10.2 gram/dL 13.0-17.5 HEMATOCRIT (test code=HCT) 32.7 % 42.0-52.0 MEAN CELL VOLUME (test code=MCV) 97.6 fL 80-98 MEAN CELL HGB (test code=MCH) 30.4 picogram 27.0-33.0 MEAN CELL HGB CONCETRATION (test code=MCHC) 31.2 gram/dL 33.0-36.0 RED CELL DISTRIBUTION WIDTH (test code=RDW) 14.4 % 11.6-16.2 RED CELL DISTRIBUTION WIDTH SD (test code=RDW-SD) 51.6 fL 37.0-51.0 PLATELET COUNT (test code=PLT) 607 K/mm3 150-450 MEAN PLATELET VOLUME (test code=MPV) 9.5 fL 6.7-11.0 NEUTROPHIL % (test code=NT%) 74.1 % 39.0-69.0 IMMATURE GRANULOCYTE % (test code=IG%) 1.5 % 0.0-5.0 LYMPHOCYTE % (test code=LY%) 11.1 % 25.0-55.0 MONOCYTE % (test code=MO%) 10.5 % 0.0-10.0 EOSINOPHIL % (test code=EO%) 2.4 % 0.0-5.0 BASOPHIL % (test code=BA%) 0.4 % 0.0-1.0 NUCLEATED RBC % (test code=NRBC%) 0.0 % 0-0 NEUTROPHIL # (test code=NT#) 12.39 K/mm3 1.8-7.7 IMMATURE GRANULOCYTE # (test code=IG#) 0.25 x10 3/uL 0-0.03 LYMPHOCYTE # (test code=LY#) 1.86 K/mm3 1.0-5.0 MONOCYTE # (test code=MO#) 1.76 K/mm3 0-0.8 EOSINOPHIL # (test code=EO#) 0.41 K/mm3 0.0-0.5 BASOPHIL # (test code=BA#) 0.07 K/mm3 0.0-0.2 NUCLEATED RBC # (test code=NRBC#) 0.00 K/mm3 0.0-0.1 MANUAL DIFF REQUIRED (test code=MDIFF) NO VANCOMYCIN [id number] 14:40:00* Test Item Value Reference Range Comments VANCOMYCIN TROUGH (test code=VANCT) 8.3 ug/mL 10-20 CBC W/AUTO [id number] 12:35:00* Test Item Value Reference Range Comments WHITE BLOOD CELL (test code=WBC) 15.5 K/mm3 4.5-12.5 RED BLOOD CELL (test code=RBC) 3.52 mill/mm3 4.0-5.8 HEMOGLOBIN (test code=HGB) 10.8 gram/dL 13.0-17.5 HEMATOCRIT (test code=HCT) 34.7 % 42.0-52.0 MEAN CELL VOLUME (test code=MCV) 98.6 fL 80-98 MEAN CELL HGB (test code=MCH) 30.7 picogram 27.0-33.0 MEAN CELL HGB CONCETRATION (test code=MCHC) 31.1 gram/dL 33.0-36.0 RED CELL DISTRIBUTION WIDTH (test code=RDW) 14.5 % 11.6-16.2 RED CELL DISTRIBUTION WIDTH SD (test code=RDW-SD) 52.0 fL 37.0-51.0 PLATELET COUNT (test code=PLT) 602 K/mm3 150-450 MEAN PLATELET VOLUME (test code=MPV) 9.3 fL 6.7-11.0 NEUTROPHIL % (test code=NT%) 74.6 % 39.0-69.0 IMMATURE GRANULOCYTE % (test code=IG%) 1.7 % 0.0-5.0 LYMPHOCYTE % (test code=LY%) 10.3 % 25.0-55.0 MONOCYTE % (test code=MO%) 9.2 % 0.0-10.0 EOSINOPHIL % (test code=EO%) 3.9 % 0.0-5.0 BASOPHIL % (test code=BA%) 0.3 % 0.0-1.0 NUCLEATED RBC % (test code=NRBC%) 0.0 % 0-0 NEUTROPHIL # (test code=NT#) 11.56 K/mm3 1.8-7.7 IMMATURE GRANULOCYTE # (test code=IG#) 0.26 x10 3/uL 0-0.03 LYMPHOCYTE # (test code=LY#) 1.59 K/mm3 1.0-5.0 MONOCYTE # (test code=MO#) 1.43 K/mm3 0-0.8 EOSINOPHIL # (test code=EO#) 0.60 K/mm3 0.0-0.5 BASOPHIL # (test code=BA#) 0.05 K/mm3 0.0-0.2 NUCLEATED RBC # (test code=NRBC#) 0.00 K/mm3 0.0-0.1 MANUAL DIFF REQUIRED (test code=MDIFF) NO - XR SWLW [facility] W/C [id number] 10:27:00 FAX: Ethel Linder MD [phone] [place]: St: [facility] FAX: Emre Fraire MD [phone] Name: STACY PIZARRO [facility] : 1960 Age/S: 58/M [address] Unit #: [id number] Loc: VM[address] [place] [address] Phys: Emre Olivo MD Acct: [id number] Dis Date: Status: ADM IN PHONE #: [phone] Exam Date: 12/25/2018 0950 FAX #: [phone] Reason: DYSPHAGIA EXAMS: CPT CODE: [id number] XR SWLW [facility] W/C V 88905 REASON FOR EXAM: DYSPHAGIA EXAM ORDER DATE: 12/25/2018 5:00 AM Attending Zbigniew: Emre Olivo MD PROCEDURE: Barium swallow FINDINGS: The exam was performed to assist the speech pathologist in performing the barium swallow exam for a ssessment of aspiration, penetration, and function and motility of the igor pharynx. The patient was giving teaspoon, cup, straw of thin liquid, tea spoon, cup, straw of thick liquid, puree, mechanical soft food coated with barium and regular food coated with barium to swallow. F luoroscopic time:82.5 sec Fluoroscopic dose:0.2 mGy Number of images obtained: 11 IMPRESSION: No evidence of penetration or aspirati on. Please see the speech pathologist report. Elec tronically Signed by Zbigniew Ruiz on 12/25/2018 at 1027 Reported and signed by: Karthik Ruiz M.D. CC: Ethel Perez MD; Emre Caraballo MD Technologist: Nat Walton RT(R) Trnscrd Date/Time/By: 12/25/2018 (5148) : By: BrennaVTL Orig Print D/T: S: 12/25/2018 (6833) PAGE 1 Signed Report - XR CHEST 1 V 2018-12-24 07:19:00 FAX: Ethel Linder MD [phone] [place]: St: [facility] FAX: Emre Dodge MD [phone] Name: STACY PIZARRO [facility] : 1960 Age/S: 58/M [address] [facility] Unit #: [id number] [facility] [place] [address] Phys: Emre Latif MD Acct: [id number] Dis Date: Status: ADM IN PHONE #: [phone] Exam Date: 12/24/2018528 FAX #: [phone] Reason: s/p decortication EXAMS: CPT CODE: [id number] XR CHEST 1 V 07957 REASON FOR EXAM: s/p decortication EXAM ORDER DATE: 12/24/2018 12:00 AM Ordering M.D.: Emre Latif MD PROCEDURE: - XR CHEST 1 V COMPARISON: 12/23/2018 FINDINGS: Portable AP frontal view of the chest obtained at 5:29 AM shows patchy airspace opacity at the bases. The heart size is within normal limits. Pulmonary vasculatures are minimally congested. Stable appearance of the right IJ central line. IMPRESSION: Atelectasis of the left base with a small left pleural effusion at 0719 Reported and signed by: Karthik Ruiz M.D. CC: Ethel Preez MD; Emre Dykes MD Technologist: Corona DIAZ(R) Trnscrd Date/Time/By: 12/24/2018 (0719) : By: BrennaVTL Orig Print D/T: S: 12/24/2018 (0723) PAGE 1 Signed Report BASIC METABOLIC PANEL 2018-12-24 04:26:00* Test Item Value Reference Range Comments SODIUM (test code=NA) 140 mmol/L 136-145 POTASSIUM (test code=K) 3.5 mmol/L 3.5-5.1 CHLORIDE (test code=CL) 104.0 mmol/L 98-107 CARBON DIOXIDE (test code=CO2) 29.0 mmol/L 21-32 ANION GAP (test code=GAP) 10.5 10-20 GLUCOSE (test code=GLU) 108 mg/dL 74-106 BLOOD UREA NITROGEN (test code=BUN) 4 mg/dL 7-18 GLOMERULAR FILTRATION RATE (test code=GFR) > 60 mL/min >=60 Estimated GFR by using Modified MDRD formula.Chronic kidney disease is defined as either kidney damageor GFR <60 mL/min/1.73 m2 for >3 months. CREATININE (test code=CREAT) 0.30 mg/dL 0.7-1.3 BUN/CREATININE RATIO (test code=BUN/CREA) 13.3 10-20 CALCIUM (test code=CA) 7.7 mg/dL 8.5-10.1 [id number] 04:26:00* Test Item Value Reference Range Comments PHOSPHORUS (test code=PHOS) 3.7 mg/dL 2.5-4.9 [id number] 04:26:00* Test Item Value Reference Range Comments MAGNESIUM (test code=MAG) 1.9 mg/dL 1.8-2.4 BASIC METABOLIC [id number] 04:19:00* Test Item Value Reference Range Comments SODIUM (test code=NA) 140 mmol/L 136-145 POTASSIUM (test code=K) 3.5 mmol/L 3.5-5.1 CHLORIDE (test code=CL) 104.0 mmol/L 98-107 CARBON DIOXIDE (test code=CO2) mmol/L 21-32 ANION GAP (test code=GAP) 10-20 GLUCOSE (test code=GLU) mg/dL 74-106 BLOOD UREA NITROGEN (test code=BUN) mg/dL 7-18 GLOMERULAR FILTRATION RATE (test code=GFR) mL/min >=60 CREATININE (test code=CREAT) mg/dL 0.7-1.3 BUN/CREATININE RATIO (test code=BUN/CREA) 10-20 CALCIUM (test code=CA) mg/dL 8.5-10.1 [id number] 04:19:00* Test Item Value Reference Range Comments PHOSPHORUS (test code=PHOS) mg/dL 2.5-4.9 [id number] 04:19:00* Test Item Value Reference Range Comments MAGNESIUM (test code=MAG) mg/dL 1.8-2.4 CBC W/O [id number] 04:11:00* Test Item Value Reference Range Comments WHITE BLOOD CELL (test code=WBC) 15.1 K/mm3 4.5-12.5 RED BLOOD CELL (test code=RBC) 3.05 mill/mm3 4.0-5.8 HEMOGLOBIN (test code=HGB) 9.6 gram/dL 13.0-17.5 HEMATOCRIT (test code=HCT) 30.0 % 42.0-52.0 MEAN CELL VOLUME (test code=MCV) 98.4 fL 80-98 MEAN CELL HGB (test code=MCH) 31.5 picogram 27.0-33.0 MEAN CELL HGB CONCETRATION (test code=MCHC) 32.0 gram/dL 33.0-36.0 RED CELL DISTRIBUTION WIDTH (test code=RDW) 14.0 % 11.6-16.2 PLATELET COUNT (test code=PLT) 575 K/mm3 150-450 MEAN PLATELET VOLUME (test code=MPV) 9.5 fL 6.7-11.0 VANCOMYCIN [id number] 16:03:00* Test Item Value Reference Range Comments VANCOMYCIN TROUGH (test code=VANCT) 7.0 ug/mL 08-03 - XR CHEST 1 [id number] 13:41:00 FAX: Ethel Linder MD [phone] [place]: St: ADM FAX: Christiane Griffiths Name: STACY PIZARRO [facility] : 1960 Age/S: 58/M [address] [facility] Unit #: [id number] Loc: [address] [address] Phys: Christiane Garcia 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 COMPARISON: Same day. Right central line is unchanged. Left chest tube has been removed. No pneumothorax. Small left effusion. No effusion or congestion. Bibasal dependent changes. Cardiomegaly. IMPRESSION: No pneumothorax after left chest tube removal. at 1341 Reported and signed by: Dino Santos M.D. CC: Ethel Perez MD; Christiane Garcia NP Technologist: Sergey DIAZ(R) Trnscrd Date/Time/By: 12/23/2018 (7233) : By: [email or web address] Orig Print D/T: S: 12/23/2018 (8630) PAGE 1 Signed Report COMPREHENSIVE METABOLIC [id number] 06:13:00* Test Item Value Reference Range Comments SODIUM (test code=NA) 140 mmol/L 136-145 POTASSIUM (test code=K) 3.3 mmol/L 3.5-5.1 CHLORIDE (test code=CL) 106.0 mmol/L 98-107 CARBON DIOXIDE (test code=CO2) 28.0 mmol/L 21-32 ANION GAP (test code=GAP) 9.3 10-20 GLUCOSE (test code=GLU) 120 mg/dL 74-106 BLOOD UREA NITROGEN (test code=BUN) 7 mg/dL 7-18 GLOMERULAR FILTRATION RATE (test code=GFR) > 60 mL/min >=60 Estimated GFR by using Modified MDRD formula.Chronic kidney disease is defined as either kidney damageor GFR <60 mL/min/1.73 m2 for >3 months. CREATININE (test code=CREAT) 0.40 mg/dL 0.7-1.3 BUN/CREATININE RATIO (test code=BUN/CREA) 17.5 10-20 TOTAL PROTEIN (test code=PROT) 5.3 gram/dL 6.4-8.2 ALBUMIN (test code=ALB) 1.9 g/dL 3.4-5.0 GLOBULIN (test code=GLOB) 3.4 gram/dL 2.7-4.2 ALBUMIN/GLOBULIN RATIO (test code=A/G) 0.6 0.75-1.50 CALCIUM (test code=CA) 7.5 mg/dL 8.5-10.1 BILIRUBIN TOTAL (test code=BILT) 0.20 mg/dL 0.0-1.0 SGOT/AST (test code=AST) 19 IUnit/L 15-37 SGPT/ALT (test code=ALT) 15 IUnit/L 12-78 ALKALINE PHOSPHATASE TOTAL (test code=ALKP) 57 IUnit/L 45-117 Note change in reference range due to change in reagent. [id number] 06:13:00* Test Item Value Reference Range Comments PHOSPHORUS (test code=PHOS) 2.0 mg/dL 2.5-4.9 [id number] 06:13:00* Test Item Value Reference Range Comments MAGNESIUM (test code=MAG) 1.9 mg/dL 1.8-2.4 - XR CHEST 1 [id number] 06:11:00 FAX: Ethel Linder MD [phone] [place]: St: ADM FAX: Emre Dodge MD [phone] Name: STACY PIZARRO [facility] : 1960 Age/S: 58/M [address] [facility] Unit #: [id number] Loc: [address] [address] Phys: Emre Latif MD Acct: [id number] Dis Date: Status: ADM IN PHONE #: [phone] Exam Date: 12/23/2018 0541 FAX #: [phone] Reason: s/p decortication EXAMS: CPT CODE: [id number] XR CHEST 1 V 42891 REASON FOR EXAM: s/p decortication EXAM ORDER DATE: 12/23/2018 12:00 AM Ordering M.D.: Emre Latif MD PROCEDURE: - XR CHEST 1 V COMPARISON: 12/22/2018 FINDINGS: Portable AP frontal view of the chest obtained at 5:40 AM shows patchy air space opacity at the left base. There is no evidence of effusion. The heart size is minimally enlarged. Stable appearance of the right IJ central line and left surgical chest tube. Pulmonary vasculatures are minimally congested. IMPRESSION: Status post extubation. Congestive heart failure with atelectasis of the left base at 0611 Reported and signed by: Karthik Ruiz M.D. CC: Ethel Perez MD; Emre Latif MD Technologist: Nat Walton RT(R); Graciela Mcarthur Trnscrd Date/Time/By: 12/23/2018 (06) : By: ivonne STATONL Orig Print D/T: S: 12/23/2018 (0614) PAGE 1 Signed Report COMPREHENSIVE METABOLIC [id number] 06:08:00* Test Item Value Reference Range Comments SODIUM (test code=NA) 140 mmol/L 136-145 POTASSIUM (test code=K) 3.3 mmol/L 3.5-5.1 CHLORIDE (test code=CL) 106.0 mmol/L 98-107 CARBON DIOXIDE (test code=CO2) mmol/L 21-32 ANION GAP (test code=GAP) 10-20 GLUCOSE (test code=GLU) mg/dL 74-106 BLOOD UREA NITROGEN (test code=BUN) mg/dL 7-18 GLOMERULAR FILTRATION RATE (test code=GFR) mL/min >=60 CREATININE (test code=CREAT) mg/dL 0.7-1.3 BUN/CREATININE RATIO (test code=BUN/CREA) 10-20 TOTAL PROTEIN (test code=PROT) gram/dL 6.4-8.2 ALBUMIN (test code=ALB) g/dL 3.4-5.0 GLOBULIN (test code=GLOB) gram/dL 2.7-4.2 ALBUMIN/GLOBULIN RATIO (test code=A/G) 0.75-1.50 CALCIUM (test code=CA) mg/dL 8.5-10.1 BILIRUBIN TOTAL (test code=BILT) mg/dL 0.0-1.0 SGOT/AST (test code=AST) IUnit/L 15-37 SGPT/ALT (test code=ALT) IUnit/L 12-78 ALKALINE PHOSPHATASE TOTAL (test code=ALKP) IUnit/L 45-117 [id number] 06:08:00* Test Item Value Reference Range Comments PHOSPHORUS (test code=PHOS) mg/dL 2.5-4.9 [id number] 06:08:00* Test Item Value Reference Range Comments MAGNESIUM (test code=MAG) mg/dL 1.8-2.4 CBC W/O [id number] 05:44:00* Test Item Value Reference Range Comments WHITE BLOOD CELL (test code=WBC) 14.9 K/mm3 4.5-12.5 RED BLOOD CELL (test code=RBC) 2.76 mill/mm3 4.0-5.8 HEMOGLOBIN (test code=HGB) 8.7 gram/dL 13.0-17.5 HEMATOCRIT (test code=HCT) 26.8 % 42.0-52.0 MEAN CELL VOLUME (test code=MCV) 97.1 fL 80-98 MEAN CELL HGB (test code=MCH) 31.5 picogram 27.0-33.0 MEAN CELL HGB CONCETRATION (test code=MCHC) 32.5 gram/dL 33.0-36.0 RED CELL DISTRIBUTION WIDTH (test code=RDW) 13.8 % 11.6-16.2 PLATELET COUNT (test code=PLT) 561 K/mm3 150-450 MEAN PLATELET VOLUME (test code=MPV) 9.7 fL 6.7-11.0 [id number] 08:02:00* Test Item Value Reference Range Comments GLUBED (test code=GLUBED) 148 mg/dL 74-106 Performed by certified knotting machine operator portable at [facility] - XR CHEST 1 [id number] 07:49:00 FAX: Ethel Linder MD [phone] [place]: B St: [facility] FAX: Emre Dodge MD [phone] Name: STACY PIZARRO [facility] : 1960 Age/S: 58/M [address] [facility] Unit #: [id number] [facility]: [facility] [place] [address] Phys: Emre Latif MD Acct: [id number] Dis Date: Status: ADM IN PHONE #: [phone] Exam Date: 12/22/2018 0440 FAX #: [phone] Reason: s/p decortication EXAMS: CPT CODE: [id number] XR CHEST 1 V 80907 CLINICAL HISTORY: Multiple rib fractures; s/p decortication TECHNIQUE: AP chest x-ray COMPARISON: Previous day. IMPRESSION: Reexpansion of left lung. Left chest tube in stable position without pneumothorax. Right lung is clear. Normal heart size. Mediastinal contours are unremarkable. ET tube and right central venous catheter. at 0749 Reported and signed by: Brunilda Campbell D.O. CC: Ethel Perez MD; Emre Latif MD Technologist: BALWINDER DUBON, (R); Mindi Iniguez Trnscrd Date/Time/By: 12/22/2018 (0749) : By: [email or web address] Orig Print D/T: S: 12/22/2018 (0752) PAGE 1 Signed Report BASIC METABOLIC [id number] 04:40:00* Test Item Value Reference Range Comments SODIUM (test code=NA) 141 mmol/L 136-145 POTASSIUM (test code=K) 3.0 mmol/L 3.5-5.1 CHLORIDE (test code=CL) 107.0 mmol/L 98-107 CARBON DIOXIDE (test code=CO2) 28.0 mmol/L 21-32 ANION GAP (test code=GAP) 9.0 10-20 GLUCOSE (test code=GLU) 211 mg/dL 74-106 BLOOD UREA NITROGEN (test code=BUN) 8 mg/dL 7-18 GLOMERULAR FILTRATION RATE (test code=GFR) > 60 mL/min >=60 Estimated GFR by using Modified MDRD formula.Chronic kidney disease is defined as either kidney damageor GFR <60 mL/min/1.73 m2 for >3 months. CREATININE (test code=CREAT) 0.50 mg/dL 0.7-1.3 BUN/CREATININE RATIO (test code=BUN/CREA) 16.0 10-20 CALCIUM (test code=CA) 7.6 mg/dL 8.5-10.1 [id number] 04:40:00* Test Item Value Reference Range Comments PHOSPHORUS (test code=PHOS) 2.2 mg/dL 2.5-4.9 [id number] 04:40:00* Test Item Value Reference Range Comments MAGNESIUM (test code=MAG) 2.2 mg/dL 1.8-2.4 CBC W/AUTO [id number] 04:39:00* Test Item Value Reference Range Comments WHITE BLOOD CELL (test code=WBC) 17.0 K/mm3 4.5-12.5 RED BLOOD CELL (test code=RBC) 2.46 mill/mm3 4.0-5.8 HEMOGLOBIN (test code=HGB) 7.9 gram/dL 13.0-17.5 HEMATOCRIT (test code=HCT) 24.1 % 42.0-52.0 MEAN CELL VOLUME (test code=MCV) 98.0 fL 80-98 MEAN CELL HGB (test code=MCH) 32.1 picogram 27.0-33.0 MEAN CELL HGB CONCETRATION (test code=MCHC) 32.8 gram/dL 33.0-36.0 RED CELL DISTRIBUTION WIDTH (test code=RDW) 13.5 % 11.6-16.2 RED CELL DISTRIBUTION WIDTH SD (test code=RDW-SD) 48.6 fL 37.0-51.0 PLATELET COUNT (test code=PLT) 520 K/mm3 150-450 RESULT VERIFIED BY REPEAT ANALYSIS MEAN PLATELET VOLUME (test code=MPV) 9.7 fL 6.7-11.0 NEUTROPHIL % (test code=NT%) 88.0 % 39.0-69.0 IMMATURE GRANULOCYTE % (test code=IG%) 1.0 % 0.0-5.0 LYMPHOCYTE % (test code=LY%) 4.4 % 25.0-55.0 MONOCYTE % (test code=MO%) 6.5 % 0.0-10.0 EOSINOPHIL % (test code=EO%) 0.0 % 0.0-5.0 BASOPHIL % (test code=BA%) 0.1 % 0.0-1.0 NUCLEATED RBC % (test code=NRBC%) 0.0 % 0-0 NEUTROPHIL # (test code=NT#) 14.92 K/mm3 1.8-7.7 IMMATURE GRANULOCYTE # (test code=IG#) 0.17 x10 3/uL 0-0.03 LYMPHOCYTE # (test code=LY#) 0.74 K/mm3 1.0-5.0 MONOCYTE # (test code=MO#) 1.10 K/mm3 0-0.8 EOSINOPHIL # (test code=EO#) 0.00 K/mm3 0.0-0.5 BASOPHIL # (test code=BA#) 0.02 K/mm3 0.0-0.2 NUCLEATED RBC # (test code=NRBC#) 0.00 K/mm3 0.0-0.1 MANUAL DIFF REQUIRED (test code=MDIFF) NO - XR CHEST 1 [id number] 08:14:00 FAX: Ethel Linder MD [phone] [place]: St: ADM FAX: Emre Dodge MD [phone] Name: STACY PIZARRO [facility] : 1960 Age/S: 58/M [address] [facility] Unit #: [id number] Loc: [address] [address] Phys: Emre Latif MD Acct: [id number] Dis Date: Status: ADM IN PHONE #: [phone] Exam Date: 12/21/2018 0511 FAX #: [phone] Reason: s/p decortication EXAMS: CPT CODE: [id number] XR CHEST 1 V 67106 EXAM: Chest x-ray, one view; INFORMATION: Multiple rib fracture; status post decortication; IMPRESSION: 1. Almost complete opacification of the left hemithorax with mediastinal shift to the left. This indicates atelectasis of the left lung. 2. The minimal left apical pneumothorax has resolved. 3. Well aerated right lung. at 0814 Reported and signed by: Nestor Shearer M.D. CC: Ethel Perez MD; Emre Latif MD Technologist: BALWINDER DUBON, RT(R); Mindi Iniguez Trnscrd Date/Time/By: 12/21/2018 (813) : By: BrennaGRW Orig Print D/T: S: 12/21/2018 (17) PAGE 1 Signed Report URINALYSIS [id number] 06:02:00* Test Item Value Reference Range Comments UA COLOR (test code=COLU) YELLOW YELLOW UA APPEARANCE (test code=APPU) SLIGHTLY CLOUDY CLEAR UA GLUCOSE DIPSTICK (test code=DGLUU) NEGATIVE mg/dL NEGATIVE UA BILIRUBIN DIPSTICK (test code=BILU) NEGATIVE mg/dL NEGATIVE UA KETONE DIPSTICK (test code=KETU) 20 (Small) mg/dL NEGATIVE UA SPECIFIC GRAVITY (test code=SGU) 1.020 1.001-1.035 UA BLOOD DIPSTICK (test code=MAYO) 2+ (Moderate) NEGATIVE UA PH DIPSTICK (test code=BHAVNA) 5.0 5.0-8.0 UA PROTEIN DIPSTICK (test code=PROU) Negative mg/dL NEGATIVE UA UROBILINIOGEN DIPSTICK (test code=URO) NEGATIVE mg/dL NEGATIVE UA NITRITE DIPSTICK (test code=HARITHA) NEGATIVE NEGATIVE UA LEUKOCYTE ESTERASE W REFLEX (test code=LEUUR) TRACE NEGATIVE UA WBC (test code=WBCU) 0-5 #/HPF 0-5 UA RBC (test code=RBCU) 6-10 #/HPF 0-5 UA EPITHELIAL CELLS (test code=EPIU) FEW per HPF FEW UA BACTERIA (test code=BACU) FEW #/HPF NONE UA MUCUS (test code=MUCU) FEW #/LPF FEW Urine Source? Clean CatchBASIC METABOLIC [id number] 04:46:00* Test Item Value Reference Range Comments SODIUM (test code=NA) 140 mmol/L 136-145 POTASSIUM (test code=K) 3.4 mmol/L 3.5-5.1 CHLORIDE (test code=CL) 105.0 mmol/L 98-107 CARBON DIOXIDE (test code=CO2) 26.0 mmol/L 21-32 ANION GAP (test code=GAP) 12.4 10-20 GLUCOSE (test code=GLU) 139 mg/dL 74-106 BLOOD UREA NITROGEN (test code=BUN) 8 mg/dL 7-18 GLOMERULAR FILTRATION RATE (test code=GFR) > 60 mL/min >=60 Estimated GFR by using Modified MDRD formula.Chronic kidney disease is defined as either kidney damageor GFR <60 mL/min/1.73 m2 for >3 months. CREATININE (test code=CREAT) 0.50 mg/dL 0.7-1.3 BUN/CREATININE RATIO (test code=BUN/CREA) 15.5 10-20 CALCIUM (test code=CA) 7.8 mg/dL 8.5-10.1 [id number] 04:46:00* Test Item Value Reference Range Comments MAGNESIUM (test code=MAG) 1.9 mg/dL 1.8-2.4 BASIC METABOLIC [id number] 04:43:00* Test Item Value Reference Range Comments SODIUM (test code=NA) 140 mmol/L 136-145 POTASSIUM (test code=K) 3.4 mmol/L 3.5-5.1 CHLORIDE (test code=CL) 105.0 mmol/L 98-107 CARBON DIOXIDE (test code=CO2) mmol/L 21-32 ANION GAP (test code=GAP) 10-20 GLUCOSE (test code=GLU) mg/dL 74-106 BLOOD UREA NITROGEN (test code=BUN) mg/dL 7-18 GLOMERULAR FILTRATION RATE (test code=GFR) mL/min >=60 CREATININE (test code=CREAT) mg/dL 0.7-1.3 BUN/CREATININE RATIO (test code=BUN/CREA) 10-20 CALCIUM (test code=CA) mg/dL 8.5-10.1 [id number] 04:43:00* Test Item Value Reference Range Comments MAGNESIUM (test code=MAG) mg/dL 1.8-2.4 CBC W/AUTO [id number] 04:29:00* Test Item Value Reference Range Comments WHITE BLOOD CELL (test code=WBC) 18.9 K/mm3 4.5-12.5 RED BLOOD CELL (test code=RBC) 3.04 mill/mm3 4.0-5.8 HEMOGLOBIN (test code=HGB) 9.6 gram/dL 13.0-17.5 HEMATOCRIT (test code=HCT) 29.9 % 42.0-52.0 MEAN CELL VOLUME (test code=MCV) 98.4 fL 80-98 MEAN CELL HGB (test code=MCH) 31.6 picogram 27.0-33.0 MEAN CELL HGB CONCETRATION (test code=MCHC) 32.1 gram/dL 33.0-36.0 RED CELL DISTRIBUTION WIDTH (test code=RDW) 13.6 % 11.6-16.2 RED CELL DISTRIBUTION WIDTH SD (test code=RDW-SD) 48.7 fL 37.0-51.0 PLATELET COUNT (test code=PLT) 606 K/mm3 150-450 MEAN PLATELET VOLUME (test code=MPV) 9.3 fL 6.7-11.0 NEUTROPHIL % (test code=NT%) 92.5 % 39.0-69.0 IMMATURE GRANULOCYTE % (test code=IG%) 0.9 % 0.0-5.0 LYMPHOCYTE % (test code=LY%) 2.7 % 25.0-55.0 MONOCYTE % (test code=MO%) 3.6 % 0.0-10.0 EOSINOPHIL % (test code=EO%) 0.1 % 0.0-5.0 BASOPHIL % (test code=BA%) 0.2 % 0.0-1.0 NUCLEATED RBC % (test code=NRBC%) 0.0 % 0-0 NEUTROPHIL # (test code=NT#) 17.50 K/mm3 1.8-7.7 IMMATURE GRANULOCYTE # (test code=IG#) 0.17 x10 3/uL 0-0.03 LYMPHOCYTE # (test code=LY#) 0.51 K/mm3 1.0-5.0 MONOCYTE # (test code=MO#) 0.68 K/mm3 0-0.8 EOSINOPHIL # (test code=EO#) 0.02 K/mm3 0.0-0.5 BASOPHIL # (test code=BA#) 0.03 K/mm3 0.0-0.2 NUCLEATED RBC # (test code=NRBC#) 0.00 K/mm3 0.0-0.1 - XR CHEST 1 [id number] 08:38:00 FAX: Ethel Linder MD [phone] [place]: St: ADM FAX: Emre Dodge MD [phone] Name: STACY PIZARRO [facility] : 1960 Age/S: 58/M [address] [facility] Unit #: [id number] [facility] [place] [address] Phys: Emre Latif MD Acct: [id number] Dis Date: Status: ADM IN PHONE #: [phone] Exam Date: 12/20/2018714 FAX #: [phone] Reason: s/p decortication EXAMS: CPT CODE: [id number] XR CHEST 1 V 90476 HISTORY: Post decortication. COMPARISON: Previous day. Left chest tube is unchanged. Trace less than 2% left apical pneumothorax. ET tube, NG tube in the right line are unchanged as well. Left basal subsegmental atelectasis. No infiltrates or congestion. Mild cardiomegaly IMPRESSION: Trace less than 2% left apical pneumothorax with left chest tube in good position. Left basal subsegmental atelectasis. No infiltrates. at 0838 Reported and s igned by: Dino Santos M.D. CC: Ethel Perez MD; Emre Powers MD Technologist: YANNA BYRNE RT (R) Trnscrd Date/Time/By: 12/20/2018 (0838) : By: [email or web address] Orig Print D/T: S: 12/20/2018 (0841) PAGE 1 Signed Report BASIC METABOLIC [id number] 05:04:00* Test Item Value Reference Range Comments SODIUM (test code=NA) 141 mmol/L 136-145 POTASSIUM (test code=K) 3.8 mmol/L 3.5-5.1 CHLORIDE (test code=CL) 108.0 mmol/L 98-107 CARBON DIOXIDE (test code=CO2) 24.0 mmol/L 21-32 ANION GAP (test code=GAP) 12.8 10-20 GLUCOSE (test code=GLU) 148 mg/dL 74-106 BLOOD UREA NITROGEN (test code=BUN) 10 mg/dL 7-18 GLOMERULAR FILTRATION RATE (test code=GFR) > 60 mL/min >=60 Estimated GFR by using Modified MDRD formula.Chronic kidney disease is defined as either kidney damageor GFR <60 mL/min/1.73 m2 for >3 months. CREATININE (test code=CREAT) 0.50 mg/dL 0.7-1.3 BUN/CREATININE RATIO (test code=BUN/CREA) 20.9 10-20 CALCIUM (test code=CA) 7.2 mg/dL 8.5-10.1 [id number] 05:04:00* Test Item Value Reference Range Comments MAGNESIUM (test code=MAG) 1.9 mg/dL 1.8-2.4 BASIC METABOLIC [id number] 04:39:00* Test Item Value Reference Range Comments SODIUM (test code=NA) 141 mmol/L 136-145 POTASSIUM (test code=K) 3.8 mmol/L 3.5-5.1 CHLORIDE (test code=CL) 108.0 mmol/L 98-107 CARBON DIOXIDE (test code=CO2) mmol/L 21-32 ANION GAP (test code=GAP) 10-20 GLUCOSE (test code=GLU) mg/dL 74-106 BLOOD UREA NITROGEN (test code=BUN) mg/dL 7-18 GLOMERULAR FILTRATION RATE (test code=GFR) mL/min >=60 CREATININE (test code=CREAT) mg/dL 0.7-1.3 BUN/CREATININE RATIO (test code=BUN/CREA) 10-20 CALCIUM (test code=CA) mg/dL 8.5-10.1 [id number] 04:39:00* Test Item Value Reference Range Comments MAGNESIUM (test code=MAG) mg/dL 1.8-2.4 CBC W/AUTO [id number] 04:18:00* Test Item Value Reference Range Comments WHITE BLOOD CELL (test code=WBC) 21.3 K/mm3 4.5-12.5 RED BLOOD CELL (test code=RBC) 2.81 mill/mm3 4.0-5.8 HEMOGLOBIN (test code=HGB) 9.0 gram/dL 13.0-17.5 HEMATOCRIT (test code=HCT) 28.1 % 42.0-52.0 MEAN CELL VOLUME (test code=MCV) 100.0 fL 80-98 MEAN CELL HGB (test code=MCH) 32.0 picogram 27.0-33.0 MEAN CELL HGB CONCETRATION (test code=MCHC) 32.0 gram/dL 33.0-36.0 RED CELL DISTRIBUTION WIDTH (test code=RDW) 13.5 % 11.6-16.2 RED CELL DISTRIBUTION WIDTH SD (test code=RDW-SD) 49.2 fL 37.0-51.0 PLATELET COUNT (test code=PLT) 634 K/mm3 150-450 MEAN PLATELET VOLUME (test code=MPV) 9.5 fL 6.7-11.0 NEUTROPHIL % (test code=NT%) 87.6 % 39.0-69.0 IMMATURE GRANULOCYTE % (test code=IG%) 1.3 % 0.0-5.0 LYMPHOCYTE % (test code=LY%) 5.1 % 25.0-55.0 MONOCYTE % (test code=MO%) 5.9 % 0.0-10.0 EOSINOPHIL % (test code=EO%) 0.0 % 0.0-5.0 BASOPHIL % (test code=BA%) 0.1 % 0.0-1.0 NUCLEATED RBC % (test code=NRBC%) 0.0 % 0-0 NEUTROPHIL # (test code=NT#) 18.61 K/mm3 1.8-7.7 IMMATURE GRANULOCYTE # (test code=IG#) 0.27 x10 3/uL 0-0.03 LYMPHOCYTE # (test code=LY#) 1.09 K/mm3 1.0-5.0 MONOCYTE # (test code=MO#) 1.26 K/mm3 0-0.8 EOSINOPHIL # (test code=EO#) 0.00 K/mm3 0.0-0.5 BASOPHIL # (test code=BA#) 0.03 K/mm3 0.0-0.2 NUCLEATED RBC # (test code=NRBC#) 0.00 K/mm3 0.0-0.1 MANUAL DIFF REQUIRED (test code=MDIFF) NO - XR ABDOMEN AP 1 [id number] 19:59:00 FAX: Ethel Linder MD [phone] [place]: St: ADM FAX: Emre Fraire MD [phone] Name: STACY PIZARRO [facility] : 1960 Age/S: 58/M [address] [facility] Unit #: [id number] Loc: [address] [address] Phys: Emre Olivo MD Acct: [id number] Dis Date: Status: ADM IN PHONE #: [phone] Exam Date: 12/19/20181940 FAX #: [phone] Reason: OG TUBE PLACEMENT EXAMS: CPT CODE: [id number] XR ABDOMEN AP 1 V 53504 REASON FOR EXAM: OG TUBE PLACEMENT EXAM ORDER DATE: 12/19/2018 12:00 AM Attending Zbigniew: Emre Olivo MD PROCEDURE: - XR ABDOMEN AP 1 V COMPARISON: FIND INGS: One view of the abdomen obtained at 7:18 PM. Scattered fecal materi al is seen in the colon. The small bowel is unremarkable. No evidence of organomegaly or evidence of ascites. No evidence of free air. IMPRESSION: The OG tube tip is in the distal stomach. Kolby trevino Signed by Zbigniew Ruiz on 12/19/2018 at 1959 Richard jamie and signed by: Karthik Ruiz M.D. CC: Ethel Perez MD; Emre Kumar MD Technologist: LINETTE MARIN; Gavin Lutz, RT(R Trnscrd Date/Time/By: 12/19/2018 (1958) : By: [email or web address] Orig Print D/T: S: 12/19/2018 (2001) PAGE 1 Signed Report BASIC METABOLIC [id number] 18:57:00* Test Item Value Reference Range Comments SODIUM (test code=NA) 142 mmol/L 136-145 POTASSIUM (test code=K) 3.8 mmol/L 3.5-5.1 CHLORIDE (test code=CL) 109.0 mmol/L 98-107 CARBON DIOXIDE (test code=CO2) 23.0 mmol/L 21-32 ANION GAP (test code=GAP) 13.8 10-20 GLUCOSE (test code=GLU) 77 mg/dL 74-106 BLOOD UREA NITROGEN (test code=BUN) 7 mg/dL 7-18 GLOMERULAR FILTRATION RATE (test code=GFR) > 60 mL/min >=60 Estimated GFR by using Modified MDRD formula.Chronic kidney disease is defined as either kidney damageor GFR <60 mL/min/1.73 m2 for >3 months. CREATININE (test code=CREAT) 0.50 mg/dL 0.7-1.3 BUN/CREATININE RATIO (test code=BUN/CREA) 15.0 10-20 CALCIUM (test code=CA) 7.1 mg/dL 8.5-10.1 [id number] 18:57:00* Test Item Value Reference Range Comments PHOSPHORUS (test code=PHOS) 3.0 mg/dL 2.5-4.9 [id number] 18:57:00* Test Item Value Reference Range Comments MAGNESIUM (test code=MAG) 2.0 mg/dL 1.8-2.4 CALCIUM [id number] 18:57:00* Test Item Value Reference Range Comments CALCIUM IONIZED (test code=AMBROCIO) 1.16 mmol/L 1.12-1.32 - XR CHEST 1 [id number] 18:53:00 FAX: Ethel Linder MD [phone] [place]: B St: [facility] FAX: Emre Dodge MD [phone] Name: STACY PIZARRO [facility] : 1960 Age/S: 58/M [address] Unit #: [id number] Loc: [address] [place] [address] Phys: Emre Latif MD Acct: [id number] Dis Date: Status: ADM IN PHONE #: [phone] Exam Date: 12/19/2018 1833 FAX #: [phone] Reason: s/p decortication EXAMS: CPT CODE: [id number] XR CHEST 1 V 25805 REASON FOR EXAM: s/p decortication EXAM ORDER DATE: 12/19/2018 6:05 PM Ordering MJennyfer: Emre Latif MD PROCEDURE: - XR CHEST 1 V COMPARISON: 12/15/2018 FINDINGS: Portable AP frontal view of the chest obtained at 6:18 PM shows atelectasis in the left base. Multiple left-sided rib fractures noted.The heart size is minimally enlarged. Pulmonary vasculatures are minimally congested. IMPRESSION: Status post intubation with the tip of ETT 2 cm above the duran. Right IJ central line tip is in the SVC. Left surgical chest tube tip is in the left apex Kolby trevino Signed by Zbigniew Ruiz on 12/19/2018 at 1853 Repor jamie and signed by: Karthik Ruiz M.D. CC: Ethel Perez MD; Emre Gtz MD Technologist: Gavin Lutz, RT(R; ... Trnscrd Date/Time/By: 12/19/2018 (1852) : By: Diann Orig Print D/T: S: 12/19/2018 (1855) PAGE 1 Signed Report BASIC METABOLIC PANEL 2018-12-19 18:40:00* Test Item Value Reference Range Comments SODIUM (test code=NA) mmol/L 136-145 POTASSIUM (test code=K) mmol/L 3.5-5.1 CHLORIDE (test code=CL) mmol/L 98-107 CARBON DIOXIDE (test code=CO2) mmol/L 21-32 ANION GAP (test code=GAP) 10-20 GLUCOSE (test code=GLU) mg/dL 74-106 BLOOD UREA NITROGEN (test code=BUN) mg/dL 7-18 GLOMERULAR FILTRATION RATE (test code=GFR) mL/min >=60 CREATININE (test code=CREAT) mg/dL 0.7-1.3 BUN/CREATININE RATIO (test code=BUN/CREA) 10-20 CALCIUM (test code=CA) mg/dL 8.5-10.1 [id number] 18:40:00* Test Item Value Reference Range Comments PHOSPHORUS (test code=PHOS) mg/dL 2.5-4.9 [id number] 18:40:00* Test Item Value Reference Range Comments MAGNESIUM (test code=MAG) mg/dL 1.8-2.4 CALCIUM [id number] 18:40:00* Test Item Value Reference Range Comments CALCIUM IONIZED (test code=AMBROCIO) 1.16 mmol/L 1.12-1.32 CBC W/AUTO [id number] 18:40:00* Test Item Value Reference Range Comments WHITE BLOOD CELL (test code=WBC) 14.5 K/mm3 4.5-12.5 RED BLOOD CELL (test code=RBC) 3.03 mill/mm3 4.0-5.8 HEMOGLOBIN (test code=HGB) 9.7 gram/dL 13.0-17.5 HEMATOCRIT (test code=HCT) 30.3 % 42.0-52.0 MEAN CELL VOLUME (test code=MCV) 100.0 fL 80-98 MEAN CELL HGB (test code=MCH) 32.0 picogram 27.0-33.0 MEAN CELL HGB CONCETRATION (test code=MCHC) 32.0 gram/dL 33.0-36.0 RED CELL DISTRIBUTION WIDTH (test code=RDW) 13.5 % 11.6-16.2 RED CELL DISTRIBUTION WIDTH SD (test code=RDW-SD) 49.5 fL 37.0-51.0 PLATELET COUNT (test code=PLT) 676 K/mm3 150-450 MEAN PLATELET VOLUME (test code=MPV) 9.3 fL 6.7-11.0 NEUTROPHIL % (test code=NT%) 85.8 % 39.0-69.0 IMMATURE GRANULOCYTE % (test code=IG%) 2.4 % 0.0-5.0 LYMPHOCYTE % (test code=LY%) 5.9 % 25.0-55.0 MONOCYTE % (test code=MO%) 4.1 % 0.0-10.0 EOSINOPHIL % (test code=EO%) 1.2 % 0.0-5.0 BASOPHIL % (test code=BA%) 0.6 % 0.0-1.0 NUCLEATED RBC % (test code=NRBC%) 0.0 % 0-0 NEUTROPHIL # (test code=NT#) 12.46 K/mm3 1.8-7.7 IMMATURE GRANULOCYTE # (test code=IG#) 0.35 x10 3/uL 0-0.03 LYMPHOCYTE # (test code=LY#) 0.85 K/mm3 1.0-5.0 MONOCYTE # (test code=MO#) 0.60 K/mm3 0-0.8 EOSINOPHIL # (test code=EO#) 0.18 K/mm3 0.0-0.5 BASOPHIL # (test code=BA#) 0.08 K/mm3 0.0-0.2 NUCLEATED RBC # (test code=NRBC#) 0.00 K/mm3 0.0-0.1 MANUAL DIFF REQUIRED (test code=MDIFF) NO ARTERIAL BLOOD [id number] 18:12:00* Test Item Value Reference Range Comments ARTERIAL BLOOD GAS PH (test code=PHA) 7.33 7.35-7.45 ARTERIAL BLOOD GAS PCO2 (test code=PCO2A) 35.7 mm Hg 35-45 ARTERIAL BLOOD GAS PO2 (test code=PO2A) 80.1 mmHg 80-100 BICARBONATE TOTAL HCO3 (test code=HCO3) 18.4 mmol/L 23.0-27.0 BASE EXCESS (test code=ALEXANDREA) -6.8 mmol/L -3.0-5.0 Results called to and read back by carrington 18:11 - 12/19/2018; by ariane ABG O2 SATURATION (test code=SATA) 92.8 % 90.0-98.0 ABG TYPE (test code=TYPEA) Arterial FIO2 (test code=FIO2A) 60.0 ABG VENT MODE (test code=MODEA) Assist Control ABG VENT RESP RATE (test code=RRA) 14.0 per min ABG TIDAL VOLUME (test code=TVA) 500.0 mL ABG PEEP (test code=PEEPA) 5.0 cmH2O ABG SITE (test code=SITEA) ARTERIAL LINE HEMATOCRIT (test code=HCT/ABG) 32 % 42-52 TOTAL HGB (test code=THB) 11.0 gram/dL 13.0-17.5 HGB O2 SAT (test code=HBOSAT) 92.0 % 94.00-98.00 CARBOXYHEMOGLOBIN (test code=HOHGBT) 0.3 %totalHg 0.5-1.5 Results called to and read back by carrington 18:11 - 12/19/2018; by ariane METHEMOGLOBIN (test code=METHGB) 0.6 % 0.0-1.50 O2 CONTENT (test code=O2CT) 14.3 % vol 18.0-22.0 - CT HEAD/BRAIN W/O [id number] 06:34:00 Name: STACY PIZARRO [facility] : 1960 Age/S: 58 / M [address] [facility] Unit #: [id number] Loc: [place] [address] Phys: Uma Richmond MD Acct: [id number] Dis Date: Status: ADM IN PHONE #: [phone] Exam Date: 12/19/2018619 FAX #: [phone] Reason: s/p fall EXAMS: CPT CODE: [id number] CT HEAD/BRAIN W/O CONT 62737 Examination: Noncontrast head CT Indication: Status post fall Comparison: None available Location: R16 Technique: Multiple CT images of the brain were obtained from the skull base to the vertex. No intravenous contrast was administered. One or more of the following dose reduction techniques were used: Automated exposure control, adjustment of the mA and/or kV according to patient size, and/or utilization of iterative reconstruction technique. Findings: There is prominence of the ventricles and sulci consistent with moderate to severe supratentorial cerebral volume loss. The basilar cisterns are patent. There is no intracranial hemorrhage or mass effect. No intra-axial or extra-axial fluid collections are seen. There are diffuse periventricular and subcortical white matter hypodensities which are nonspecific, but likely the sequelae of chronic microvascular ischemia. This appearance makes evaluation for underlying acute infarct difficult The visualized paranasal sinuses and mastoid air cells are clear. Impression: 1. No acute intracranial h emorrhage or significant mass effect 2. Additional findings as above at 0634 Reported and signed by: Fabi Vasquez M.D. PAGE 1 Signed Report (CONTINUED) Name: STACY PIZARRO [facility] : 1960 Age/S: 58 / M [address] [facility] Unit #: [id number] Loc: [place] [address] Phys: Uma Richmond MD Acct: [id number] Dis Date: Status: ADM IN PHONE #: [phone] Exam Date: 12/19/2018619 FAX #: [phone] Reason: s/p fall EXAMS: CPT CODE: [id number] CT HEAD/BRAIN W/O CONT 54499 <Continued> CC: Uma Richmond MD; Ethel Perez MD Technologist:RT TATYANA CTDI: DLP: Trnscb Date/Time: 12/19/2018 (633) [email or web address] Orig Print D/T: S: 12/19/2018 (0637) CTDI: DLP: PAGE 2 Signed Report COMPREHENSIVE METABOLIC [id number] 04:36:00* Test Item Value Reference Range Comments SODIUM (test code=NA) 139 mmol/L 136-145 POTASSIUM (test code=K) 3.6 mmol/L 3.5-5.1 CHLORIDE (test code=CL) 102.0 mmol/L 98-107 CARBON DIOXIDE (test code=CO2) 28.0 mmol/L 21-32 ANION GAP (test code=GAP) 12.6 10-20 GLUCOSE (test code=GLU) 79 mg/dL 74-106 BLOOD UREA NITROGEN (test code=BUN) 5 mg/dL 7-18 GLOMERULAR FILTRATION RATE (test code=GFR) > 60 mL/min >=60 Estimated GFR by using Modified MDRD formula.Chronic kidney disease is defined as either kidney damageor GFR <60 mL/min/1.73 m2 for >3 months. CREATININE (test code=CREAT) 0.60 mg/dL 0.7-1.3 BUN/CREATININE RATIO (test code=BUN/CREA) 8.8 10-20 TOTAL PROTEIN (test code=PROT) 7.2 gram/dL 6.4-8.2 ALBUMIN (test code=ALB) 2.7 g/dL 3.4-5.0 GLOBULIN (test code=GLOB) 4.5 gram/dL 2.7-4.2 ALBUMIN/GLOBULIN RATIO (test code=A/G) 0.6 0.75-1.50 CALCIUM (test code=CA) 8.4 mg/dL 8.5-10.1 BILIRUBIN TOTAL (test code=BILT) 0.50 mg/dL 0.0-1.0 SGOT/AST (test code=AST) 27 IUnit/L 15-37 SGPT/ALT (test code=ALT) 21 IUnit/L 12-78 ALKALINE PHOSPHATASE TOTAL (test code=ALKP) 79 IUnit/L 45-117 Note change in reference range due to change in reagent. [id number] 04:36:00* Test Item Value Reference Range Comments MAGNESIUM (test code=MAG) 1.9 mg/dL 1.8-2.4 COMPREHENSIVE METABOLIC [id number] 04:30:00* Test Item Value Reference Range Comments SODIUM (test code=NA) 139 mmol/L 136-145 POTASSIUM (test code=K) 3.6 mmol/L 3.5-5.1 CHLORIDE (test code=CL) 102.0 mmol/L 98-107 CARBON DIOXIDE (test code=CO2) mmol/L 21-32 ANION GAP (test code=GAP) 10-20 GLUCOSE (test code=GLU) mg/dL 74-106 BLOOD UREA NITROGEN (test code=BUN) mg/dL 7-18 GLOMERULAR FILTRATION RATE (test code=GFR) mL/min >=60 CREATININE (test code=CREAT) mg/dL 0.7-1.3 BUN/CREATININE RATIO (test code=BUN/CREA) 10-20 TOTAL PROTEIN (test code=PROT) gram/dL 6.4-8.2 ALBUMIN (test code=ALB) g/dL 3.4-5.0 GLOBULIN (test code=GLOB) gram/dL 2.7-4.2 ALBUMIN/GLOBULIN RATIO (test code=A/G) 0.75-1.50 CALCIUM (test code=CA) mg/dL 8.5-10.1 BILIRUBIN TOTAL (test code=BILT) mg/dL 0.0-1.0 SGOT/AST (test code=AST) IUnit/L 15-37 SGPT/ALT (test code=ALT) IUnit/L 12-78 ALKALINE PHOSPHATASE TOTAL (test code=ALKP) IUnit/L 45-117 [id number] 04:30:00* Test Item Value Reference Range Comments MAGNESIUM (test code=MAG) mg/dL 1.8-2.4 THROMBOPLASTIN TIME [id number] 04:22:00* Test Item Value Reference Range Comments THROMBOPLASTIN TIME PARTIAL (test code=PTT) 39.7 seconds 25.0-36.5 IS PATIENT ON ANTICOAGULANTS? NPROTHROMBIN [id number] 04:21:00* Test Item Value Reference Range Comments PROTHROMBIN TIME PATIENT (test code=PTP) 19.8 seconds 9.0-14.0 INTERNATIONAL NORMAL RATIO (test code=INR) 1.6 0.8-1.2 The therapeutic range for oral anticoagulant therapy formost indications is an international normalized ratio (INR)of between 2.0 and 3.0. The recommended therapeutic INRrange for various clinical situations is listed below: Clinical Situation INR range Pulmonary e mbolism treatment (2.0-3.0)Venous thrombosis treatmentVenous thrombosis prophylaxis (high risk surgery)Prevention of systemic embolism from: Acute myocardial infarction Valvular heart disease Atrial fibrillation Mechanical prosthetic heart valves (2.5-3.5) IS PATIENT ON ANTICOAGULANTS? NCBC W/AUTO [id number] 04:17:00* Test Item Value Reference Range Comments WHITE BLOOD CELL (test code=WBC) 12.5 K/mm3 4.5-12.5 RED BLOOD CELL (test code=RBC) 3.27 mill/mm3 4.0-5.8 HEMOGLOBIN (test code=HGB) 10.6 gram/dL 13.0-17.5 HEMATOCRIT (test code=HCT) 32.4 % 42.0-52.0 MEAN CELL VOLUME (test code=MCV) 99.1 fL 80-98 MEAN CELL HGB (test code=MCH) 32.4 picogram 27.0-33.0 MEAN CELL HGB CONCETRATION (test code=MCHC) 32.7 gram/dL 33.0-36.0 RED CELL DISTRIBUTION WIDTH (test code=RDW) 13.2 % 11.6-16.2 RED CELL DISTRIBUTION WIDTH SD (test code=RDW-SD) 48.7 fL 37.0-51.0 PLATELET COUNT (test code=PLT) 696 K/mm3 150-450 MEAN PLATELET VOLUME (test code=MPV) 9.1 fL 6.7-11.0 NEUTROPHIL % (test code=NT%) 68.5 % 39.0-69.0 IMMATURE GRANULOCYTE % (test code=IG%) 1.8 % 0.0-5.0 LYMPHOCYTE % (test code=LY%) 16.1 % 25.0-55.0 MONOCYTE % (test code=MO%) 11.2 % 0.0-10.0 EOSINOPHIL % (test code=EO%) 1.8 % 0.0-5.0 BASOPHIL % (test code=BA%) 0.6 % 0.0-1.0 NUCLEATED RBC % (test code=NRBC%) 0.0 % 0-0 NEUTROPHIL # (test code=NT#) 8.51 K/mm3 1.8-7.7 IMMATURE GRANULOCYTE # (test code=IG#) 0.23 x10 3/uL 0-0.03 LYMPHOCYTE # (test code=LY#) 2.01 K/mm3 1.0-5.0 MONOCYTE # (test code=MO#) 1.40 K/mm3 0-0.8 EOSINOPHIL # (test code=EO#) 0.23 K/mm3 0.0-0.5 BASOPHIL # (test code=BA#) 0.08 K/mm3 0.0-0.2 NUCLEATED RBC # (test code=NRBC#) 0.00 K/mm3 0.0-0.1 - [place] ABDOMEN [id number] 18:26:00 [facility] 1960 Age/S: 58 / M [address] [facility] Unit #: [id number] [place] [address] Phys: Yohana Carballo Acct: [id number] Dis Date: Status: ADM IN PHONE #: [phone] Exam Date: 12/18/20181820 FAX #: [phone] Reason: screen for level of ascites?? EXAMS: CPT CODE: [id number] US ABDOMEN COMPLETE 59195 REASON FOR EXAM: screen for level of ascites?? EXAM ORDER DATE: 12/18/2018 2:19 PM Attending Zbigniew: DANIELA Silva PROCEDURE: - US ABDOMEN COMPLETE FINDINGS: The liver is nodular in contour. There is no evidence of focal mass identified. The pancreas is within normal limits. The right kidney measures 9.2 x 4.7 cm. The left kidney measures 10.4 x 5.1 cm. There is no evidence of hydronephrosis. There is no evidence of nephrolithiasis. There is no evidence of renal mass. A subcapsular hematoma noted within the spleen measuring 9.2 x 5.4 cm The gallbladder is partially contracted without evidence of gallstone.The common bile duct measures 0.3 cm. There is no evidence of ascite s. The aorta and IVC are within normal limits. The portal vein is patent w ith hepatopetal flow IMPRESSION: Partially contracted gallbladde r without evidence of gallstone. 9.2 x 5.4 cm subcapsular hematoma of th e spleen. Cirrhosis of the liver at 1826 Reported and signed by: Karthik Ruiz M.D. CC: Ethel Perez MD; Yohana Carballo Technologist: Sandy Bingham RDMS Trnscb Date/Time: 12/18/2018 (182) Tia.VTL Orig Print D/T: S: 12/18/2018 (5133) Probe: PAGE 1 Signed Report BASIC METABOLIC [id number] 18:08:00* Test Item Value Reference Range Comments SODIUM (test code=NA) 139 mmol/L 136-145 POTASSIUM (test code=K) 3.7 mmol/L 3.5-5.1 CHLORIDE (test code=CL) 102.0 mmol/L 98-107 CARBON DIOXIDE (test code=CO2) 28.0 mmol/L 21-32 ANION GAP (test code=GAP) 12.7 10-20 GLUCOSE (test code=GLU) 79 mg/dL 74-106 BLOOD UREA NITROGEN (test code=BUN) 3 mg/dL 7-18 GLOMERULAR FILTRATION RATE (test code=GFR) > 60 mL/min >=60 Estimated GFR by using Modified MDRD formula.Chronic kidney disease is defined as either kidney damageor GFR <60 mL/min/1.73 m2 for >3 months. CREATININE (test code=CREAT) 0.50 mg/dL 0.7-1.3 BUN/CREATININE RATIO (test code=BUN/CREA) 6.7 10-20 CALCIUM (test code=CA) 8.4 mg/dL 8.5-10.1 PROTHROMBIN [id number] 18:07:00* Test Item Value Reference Range Comments PROTHROMBIN TIME PATIENT (test code=PTP) 19.0 seconds 9.0-14.0 INTERNATIONAL NORMAL RATIO (test code=INR) 1.6 0.8-1.2 The therapeutic range for oral anticoagulant therapy formost indications is an international normalized ratio (INR)of between 2.0 and 3.0. The recommended therapeutic INRrange for various clinical situations is listed below: Clinical Situation INR range Pulmonary e mbolism treatment (2.0-3.0)Venous thrombosis treatmentVenous thrombosis prophylaxis (high risk surgery)Prevention of systemic embolism from: Acute myocardial infarction Valvular heart disease Atrial fibrillation Mechanical prosthetic heart valves (2.5-3.5) IS PATIENT ON ANTICOAGULANTS? NTHROMBOPLASTIN TIME [id number] 18:07:00* Test Item Value Reference Range Comments THROMBOPLASTIN TIME PARTIAL (test code=PTT) 38.4 seconds 25.0-36.5 IS PATIENT ON ANTICOAGULANTS? NBASIC METABOLIC [id number] 18:07:00* Test Item Value Reference Range Comments SODIUM (test code=NA) 139 mmol/L 136-145 POTASSIUM (test code=K) 3.7 mmol/L 3.5-5.1 CHLORIDE (test code=CL) 102.0 mmol/L 98-107 CARBON DIOXIDE (test code=CO2) mmol/L 21-32 ANION GAP (test code=GAP) 10-20 GLUCOSE (test code=GLU) mg/dL 74-106 BLOOD UREA NITROGEN (test code=BUN) mg/dL 7-18 GLOMERULAR FILTRATION RATE (test code=GFR) mL/min >=60 CREATININE (test code=CREAT) mg/dL 0.7-1.3 BUN/CREATININE RATIO (test code=BUN/CREA) 10-20 CALCIUM (test code=CA) mg/dL 8.5-10.1 CBC W/AUTO [id number] 17:59:00* Test Item Value Reference Range Comments WHITE BLOOD CELL (test code=WBC) 12.6 K/mm3 4.5-12.5 RED BLOOD CELL (test code=RBC) 3.37 mill/mm3 4.0-5.8 HEMOGLOBIN (test code=HGB) 10.7 gram/dL 13.0-17.5 HEMATOCRIT (test code=HCT) 32.9 % 42.0-52.0 MEAN CELL VOLUME (test code=MCV) 97.6 fL 80-98 RESULT VERIFIED BY REPEAT ANALYSIS MEAN CELL HGB (test code=MCH) 31.8 picogram 27.0-33.0 MEAN CELL HGB CONCETRATION (test code=MCHC) 32.5 gram/dL 33.0-36.0 RED CELL DISTRIBUTION WIDTH (test code=RDW) 13.2 % 11.6-16.2 RED CELL DISTRIBUTION WIDTH SD (test code=RDW-SD) 47.7 fL 37.0-51.0 PLATELET COUNT (test code=PLT) 733 K/mm3 150-450 RESULT VERIFIED BY REPEAT ANALYSIS MEAN PLATELET VOLUME (test code=MPV) 9.1 fL 6.7-11.0 NEUTROPHIL % (test code=NT%) 70.9 % 39.0-69.0 IMMATURE GRANULOCYTE % (test code=IG%) 1.4 % 0.0-5.0 LYMPHOCYTE % (test code=LY%) 14.6 % 25.0-55.0 MONOCYTE % (test code=MO%) 10.6 % 0.0-10.0 EOSINOPHIL % (test code=EO%) 2.0 % 0.0-5.0 BASOPHIL % (test code=BA%) 0.5 % 0.0-1.0 NUCLEATED RBC % (test code=NRBC%) 0.0 % 0-0 NEUTROPHIL # (test code=NT#) 8.95 K/mm3 1.8-7.7 IMMATURE GRANULOCYTE # (test code=IG#) 0.18 x10 3/uL 0-0.03 LYMPHOCYTE # (test code=LY#) 1.85 K/mm3 1.0-5.0 MONOCYTE # (test code=MO#) 1.34 K/mm3 0-0.8 EOSINOPHIL # (test code=EO#) 0.25 K/mm3 0.0-0.5 BASOPHIL # (test code=BA#) 0.06 K/mm3 0.0-0.2 NUCLEATED RBC # (test code=NRBC#) 0.00 K/mm3 0.0-0.1 MANUAL DIFF REQUIRED (test code=MDIFF) NO COMPREHENSIVE METABOLIC [id number] 04:58:00* Test Item Value Reference Range Comments SODIUM (test code=NA) 137 mmol/L 136-145 POTASSIUM (test code=K) 3.5 mmol/L 3.5-5.1 CHLORIDE (test code=CL) 103.0 mmol/L 98-107 CARBON DIOXIDE (test code=CO2) 27.0 mmol/L 21-32 ANION GAP (test code=GAP) 10.5 10-20 GLUCOSE (test code=GLU) 90 mg/dL 74-106 BLOOD UREA NITROGEN (test code=BUN) 5 mg/dL 7-18 GLOMERULAR FILTRATION RATE (test code=GFR) > 60 mL/min >=60 Estimated GFR by using Modified MDRD formula.Chronic kidney disease is defined as either kidney damageor GFR <60 mL/min/1.73 m2 for >3 months. CREATININE (test code=CREAT) 0.50 mg/dL 0.7-1.3 BUN/CREATININE RATIO (test code=BUN/CREA) 10.9 10-20 TOTAL PROTEIN (test code=PROT) 6.5 gram/dL 6.4-8.2 ALBUMIN (test code=ALB) 2.3 g/dL 3.4-5.0 GLOBULIN (test code=GLOB) 4.2 gram/dL 2.7-4.2 ALBUMIN/GLOBULIN RATIO (test code=A/G) 0.5 0.75-1.50 CALCIUM (test code=CA) 7.9 mg/dL 8.5-10.1 BILIRUBIN TOTAL (test code=BILT) 0.40 mg/dL 0.0-1.0 SGOT/AST (test code=AST) 40 IUnit/L 15-37 SGPT/ALT (test code=ALT) 21 IUnit/L 12-78 ALKALINE PHOSPHATASE TOTAL (test code=ALKP) 70 IUnit/L 45-117 Note change in reference range due to change in reagent. [id number] 04:58:00* Test Item Value Reference Range Comments AMMONIA (test code=AMM) 44 umol/L 11-32 COMPREHENSIVE METABOLIC [id number] 04:50:00* Test Item Value Reference Range Comments SODIUM (test code=NA) 137 mmol/L 136-145 POTASSIUM (test code=K) 3.5 mmol/L 3.5-5.1 CHLORIDE (test code=CL) 103.0 mmol/L 98-107 CARBON DIOXIDE (test code=CO2) mmol/L 21-32 ANION GAP (test code=GAP) 10-20 GLUCOSE (test code=GLU) mg/dL 74-106 BLOOD UREA NITROGEN (test code=BUN) mg/dL 7-18 GLOMERULAR FILTRATION RATE (test code=GFR) mL/min >=60 CREATININE (test code=CREAT) mg/dL 0.7-1.3 BUN/CREATININE RATIO (test code=BUN/CREA) 10-20 TOTAL PROTEIN (test code=PROT) gram/dL 6.4-8.2 ALBUMIN (test code=ALB) g/dL 3.4-5.0 GLOBULIN (test code=GLOB) gram/dL 2.7-4.2 ALBUMIN/GLOBULIN RATIO (test code=A/G) 0.75-1.50 CALCIUM (test code=CA) mg/dL 8.5-10.1 BILIRUBIN TOTAL (test code=BILT) mg/dL 0.0-1.0 SGOT/AST (test code=AST) IUnit/L 15-37 SGPT/ALT (test code=ALT) IUnit/L 12-78 ALKALINE PHOSPHATASE TOTAL (test code=ALKP) IUnit/L 45-117 CBC W/AUTO [id number] 04:34:00* Test Item Value Reference Range Comments WHITE BLOOD CELL (test code=WBC) 11.3 K/mm3 4.5-12.5 RED BLOOD CELL (test code=RBC) 3.68 mill/mm3 4.0-5.8 HEMOGLOBIN (test code=HGB) 11.9 gram/dL 13.0-17.5 RESULT VERIFIED BY REPEAT ANALYSIS HEMATOCRIT (test code=HCT) 38.2 % 42.0-52.0 MEAN CELL VOLUME (test code=MCV) 103.8 fL 80-98 MEAN CELL HGB (test code=MCH) 32.3 picogram 27.0-33.0 MEAN CELL HGB CONCETRATION (test code=MCHC) 31.2 gram/dL 33.0-36.0 RED CELL DISTRIBUTION WIDTH (test code=RDW) 13.3 % 11.6-16.2 RED CELL DISTRIBUTION WIDTH SD (test code=RDW-SD) 51.0 fL 37.0-51.0 PLATELET COUNT (test code=PLT) 395 K/mm3 150-450 RESULT VERIFIED BY REPEAT ANALYSIS MEAN PLATELET VOLUME (test code=MPV) 10.7 fL 6.7-11.0 NEUTROPHIL % (test code=NT%) 73.9 % 39.0-69.0 IMMATURE GRANULOCYTE % (test code=IG%) 1.1 % 0.0-5.0 LYMPHOCYTE % (test code=LY%) 10.8 % 25.0-55.0 MONOCYTE % (test code=MO%) 10.5 % 0.0-10.0 EOSINOPHIL % (test code=EO%) 3.2 % 0.0-5.0 BASOPHIL % (test code=BA%) 0.5 % 0.0-1.0 NUCLEATED RBC % (test code=NRBC%) 0.0 % 0-0 NEUTROPHIL # (test code=NT#) 8.34 K/mm3 1.8-7.7 IMMATURE GRANULOCYTE # (test code=IG#) 0.12 x10 3/uL 0-0.03 LYMPHOCYTE # (test code=LY#) 1.22 K/mm3 1.0-5.0 MONOCYTE # (test code=MO#) 1.18 K/mm3 0-0.8 EOSINOPHIL # (test code=EO#) 0.36 K/mm3 0.0-0.5 BASOPHIL # (test code=BA#) 0.06 K/mm3 0.0-0.2 NUCLEATED RBC # (test code=NRBC#) 0.00 K/mm3 0.0-0.1 MANUAL DIFF REQUIRED (test code=MDIFF) NO - XR CHEST 1 [id number] 15:51:00 FAX: Ethel Linder MD [phone] [place]: St: [facility] FAX: Emre Fraire MD [phone] Name: STACY PIZARRO [facility] : 1960 Age/S: 58/M [address] [facility] Unit #: [id number] Loc: V.20[address] [place] [address] Phys: Emre Olivo MD Acct: [id number] Dis Date: Status: ADM IN PHONE #: [phone] Exam Date: 12/16/2018 1531 FAX #: [phone] Reason: PNEUMOTHOROAX, PULLED OUT CT EXAMS: CPT CODE: [id number] XR CHEST 1 V 48283 REASON FOR EXAM: PNEUMOTHOROAX, PULLED OUT CT EXAM ORDER DATE: 12/16/2018 3:30 PM Ordering Zbigniew: Emre Olivo MD PROCEDURE: - XR CHEST 1 V COMPARISON: 12/14/2018 FINDINGS: Portable AP frontal view of the chest obtained at 3:31 PM shows patchy atelectasis of the left base. There is no evidence of effusion. The heart size is within normal limits. Pulmonary vasculatures are minimally congested. IMPRESSION: Status post removal of the chest tube. Persistent atelectasis of the left base. No evidence of pneumothorax at 0477 Reported and signed by: Karthik Ruiz M.D. CC: Ethel Perez MD; Emre Olivo MD Technologist: Nat Walton RT(R); STUDENT TECHNOLOGIST Trnscrd Date/Time/By: 12/16/2018 (0688) : By: Tia.VTL Orig Print D/T: S: 12/16/2018 (4454) PAGE 1 Signed Report - XR SWLW FUNC W/C [id number] 15:00:00 FAX: Ethel Linder MD [phone] [place]: St: [facility] FAX: Macie Navarrete [phone] Name: STACY PIZARRO [facility] : 1960 Age/S: 58/M [address] [facility] Unit #: [id number] Loc: V.[address] [place] [address] Phys: Macie Dow MD Acct: [id number] Dis Date: Status: ADM IN PHONE #: [phone] Exam Date: 12/16/2018 1110 FAX #: [phone] Reason: concern for aspiration EXAMS: CPT CODE: [id number] XR SWLW FUNC W/C V 83715 EXAM: Modified barium swallow; INFORMATION: Dysphagia, aspiration; IMPRESSION: Aspiration was noticed with thin liquids Vallecular pooling was noticed with thick liquids. Fluoroscopy Time: 152 sec CAK : 6.68 mGy at 1500 Reported and signed by: Nestor Shearer M.D. CC: Ethel Perez MD; Maice Dow MD Technologist: Nat Walton RT(R) Trnscrd Date/Time/By: 12/16/2018 (1500) : By: [email or web address] Orig Print D/T: S: 12/16/2018 (9884) PAGE 1 Signed Report BODY FLUID CELL [id number] 10:59:00* Test Item Value Reference Range Comments FLUID SOURCE (test code=SOURCEFL) PLEURAL FLD LEFT PLEURAL FLUID FLUID COLOR (test code=COLFL) BROWN COLORLESS FLUID APPEARANCE (test code=APPFL) [place] FLUID WBC AUTO (test code=WBCFLA) 1647 cells/uL FLUID RBC AUTO (test code=RBCFLA) 99336 cells/uL FLUID TOTAL CELLS (test code=TCFL) 1661 cells/uL >0 Fluid WBC RBC PMN% MN%Type cells/uL cells/uL CSF (0-5) n/a (2+/-4) (90+/-20)Peritoneal n/a n/a n/a n/aPleural n/a n/a n/a n/aSynovial <200 n/a <25% <75% CSF (0-30) n/a (4+/-4) (90+/-20) FLUID POLY (test code=POLYFL) 36.0 % FLUID LYMPHOCYTE (test code=LYMPHFL) 55.0 % FLUID MACROPHAGE (test code=MACFL) 7.0 % FLUID OTHER CELL (test code=OTHERFL) 2.0 % TOTAL CELLS COUNTED ON DIFF (test code=TOTCELLFL) 100 cells REVIEWED BY (test code=REVIEW) AUBREY FARRAR PATHOLOGIST REVIEWED BY Kwan POTTER M.D. 12/16/18 SPECIMEN COMMENTS: LEFT PLEURAL FLUID- CT CHEST W/O [id number] 09:52:00 Name: STACY PIZARRO [facility] : 1960 Age/S: 58 / M [address] Unit #: [id number] Loc: [place] [address] Phys: Mike Olivo MD Acct: [id number] Di s Date: Status: ADM IN PHONE #: Exam Date: 12/15/2018 0945 FAX #: [phone] Reason: retained hemothorax EXAMS: CPT CODE: [id number] CT CHEST W/O CONTRAST 69577 REASON FOR EXAM: retained hemothorax EXAM ORDER DATE: 12/15/2018 8:00 AM Orderi hilton Coy: Emre Olivo MD PROCEDURE: - CT CHEST W/O CONTRAST FINDINGS: CT images of the chest were obtained without IV contrast. Reconstructed sagittal and coronal images of the chest were provided for interpretation. Dose modulation, iterative reconstruction, and/or w eight based adjustment of the MA/KV was utilized to reduce the radiation d ose to as low as reasonably achievable. The heart size is minimal ly enlarged. No evidence of pericardial effusion. The thoracic aort a is unremarkable. No evidence of dissection. No evidence of mediastinal o r hilar adenopathy. IMPRESSION: Stable appearance of the multiple left-sided rib fractures and the splenic hematoma. Left-sided pigtail chest tube noted with small left pleural effusion and consolida tion/atelectasis of the left base. Small right effusion also seen. No evidence of pneumothorax Electronically Signed by Zbigniew Ruiz on at 0952 Reported and signed by: Karthik Ruiz M.D. CC: Ethel Perez MD; Emre Olivo MD Technol ogist:Maricarmen Hickey RT(R),CT CTDI: DLP: Trnscb Date/Time: 12/15/2018 (951) Diann Orig Print D/T: S: 12/15/2018 (3855) CTDI: DLP: PAGE 1 Signed Report COMPREHENSIVE METABOLIC [id number] 05:45:00* Test Item Value Reference Range Comments SODIUM (test code=NA) 141 mmol/L 136-145 POTASSIUM (test code=K) 3.4 mmol/L 3.5-5.1 CHLORIDE (test code=CL) 103.0 mmol/L 98-107 CARBON DIOXIDE (test code=CO2) 33.0 mmol/L 21-32 ANION GAP (test code=GAP) 8.4 10-20 GLUCOSE (test code=GLU) 86 mg/dL 74-106 BLOOD UREA NITROGEN (test code=BUN) 10 mg/dL 7-18 GLOMERULAR FILTRATION RATE (test code=GFR) > 60 mL/min >=60 Estimated GFR by using Modified MDRD formula.Chronic kidney disease is defined as either kidney damageor GFR <60 mL/min/1.73 m2 for >3 months. CREATININE (test code=CREAT) 0.50 mg/dL 0.7-1.3 BUN/CREATININE RATIO (test code=BUN/CREA) 20.0 10-20 TOTAL PROTEIN (test code=PROT) 6.2 gram/dL 6.4-8.2 ALBUMIN (test code=ALB) 2.3 g/dL 3.4-5.0 GLOBULIN (test code=GLOB) 3.9 gram/dL 2.7-4.2 ALBUMIN/GLOBULIN RATIO (test code=A/G) 0.6 0.75-1.50 CALCIUM (test code=CA) 8.0 mg/dL 8.5-10.1 BILIRUBIN TOTAL (test code=BILT) 0.40 mg/dL 0.0-1.0 SGOT/AST (test code=AST) 34 IUnit/L 15-37 SGPT/ALT (test code=ALT) 15 IUnit/L 12-78 ALKALINE PHOSPHATASE TOTAL (test code=ALKP) 58 IUnit/L 45-117 Note change in reference range due to change in reagent. COMPREHENSIVE METABOLIC [id number] 05:33:00* Test Item Value Reference Range Comments SODIUM (test code=NA) 141 mmol/L 136-145 POTASSIUM (test code=K) 3.4 mmol/L 3.5-5.1 CHLORIDE (test code=CL) 103.0 mmol/L 98-107 CARBON DIOXIDE (test code=CO2) mmol/L 21-32 ANION GAP (test code=GAP) 10-20 GLUCOSE (test code=GLU) mg/dL 74-106 BLOOD UREA NITROGEN (test code=BUN) mg/dL 7-18 GLOMERULAR FILTRATION RATE (test code=GFR) mL/min >=60 CREATININE (test code=CREAT) mg/dL 0.7-1.3 BUN/CREATININE RATIO (test code=BUN/CREA) 10-20 TOTAL PROTEIN (test code=PROT) gram/dL 6.4-8.2 ALBUMIN (test code=ALB) g/dL 3.4-5.0 GLOBULIN (test code=GLOB) gram/dL 2.7-4.2 ALBUMIN/GLOBULIN RATIO (test code=A/G) 0.75-1.50 CALCIUM (test code=CA) mg/dL 8.5-10.1 BILIRUBIN TOTAL (test code=BILT) mg/dL 0.0-1.0 SGOT/AST (test code=AST) IUnit/L 15-37 SGPT/ALT (test code=ALT) IUnit/L 12-78 ALKALINE PHOSPHATASE TOTAL (test code=ALKP) IUnit/L 45-117 [id number] 05:28:00* Test Item Value Reference Range Comments AMMONIA (test code=AMM) 46 umol/L 11-32 CBC W/AUTO [id number] 04:46:00* Test Item Value Reference Range Comments WHITE BLOOD CELL (test code=WBC) 16.5 K/mm3 4.5-12.5 RED BLOOD CELL (test code=RBC) 2.78 mill/mm3 4.0-5.8 HEMOGLOBIN (test code=HGB) 9.2 gram/dL 13.0-17.5 HEMATOCRIT (test code=HCT) 29.0 % 42.0-52.0 MEAN CELL VOLUME (test code=MCV) 104.3 fL 80-98 MEAN CELL HGB (test code=MCH) 33.1 picogram 27.0-33.0 MEAN CELL HGB CONCETRATION (test code=MCHC) 31.7 gram/dL 33.0-36.0 RED CELL DISTRIBUTION WIDTH (test code=RDW) 13.2 % 11.6-16.2 RED CELL DISTRIBUTION WIDTH SD (test code=RDW-SD) 50.6 fL 37.0-51.0 PLATELET COUNT (test code=PLT) 686 K/mm3 150-450 MEAN PLATELET VOLUME (test code=MPV) 9.0 fL 6.7-11.0 NEUTROPHIL % (test code=NT%) 81.1 % 39.0-69.0 IMMATURE GRANULOCYTE % (test code=IG%) 1.0 % 0.0-5.0 LYMPHOCYTE % (test code=LY%) 6.6 % 25.0-55.0 MONOCYTE % (test code=MO%) 9.1 % 0.0-10.0 EOSINOPHIL % (test code=EO%) 1.8 % 0.0-5.0 BASOPHIL % (test code=BA%) 0.4 % 0.0-1.0 NUCLEATED RBC % (test code=NRBC%) 0.0 % 0-0 NEUTROPHIL # (test code=NT#) 13.37 K/mm3 1.8-7.7 IMMATURE GRANULOCYTE # (test code=IG#) 0.16 x10 3/uL 0-0.03 LYMPHOCYTE # (test code=LY#) 1.09 K/mm3 1.0-5.0 MONOCYTE # (test code=MO#) 1.50 K/mm3 0-0.8 EOSINOPHIL # (test code=EO#) 0.29 K/mm3 0.0-0.5 BASOPHIL # (test code=BA#) 0.06 K/mm3 0.0-0.2 NUCLEATED RBC # (test code=NRBC#) 0.00 K/mm3 0.0-0.1 - XR CHEST 1 [id number] 18:42:00 FAX: Ethel Linder MD [phone] [place]: St: [facility] FAX: Macie Navarrete [phone] Name: TSACY PIZARRO [facility] : 1960 Age/S: 58/M [address] [facility] Unit #: [id number] Loc: [address] [place] [address] Phys: Macie Dow MD Acct: [id number] Dis Date: Status: ADM IN PHONE #: [phone] Exam Date: 12/14/2018 183 FAX #: [phone] Reason: ASSESS FOR ASPIRATION EXAMS: CPT CODE: [id number] XR CHEST 1 V 99875 REASON FOR EXAM: ASSESS FOR ASPIRATION EXAM ORDER DATE: 12/14/2018 12:00 AM Ordering M.DMercedes: Macie Dow MD PROCEDURE: - XR CHEST 1 V COMPARISON: 12/14/2018 at 7:32 AM FINDINGS: Portable AP frontal view of the chest obtained at 6:27 PM shows patchy atelectasis at the left base. Stable appearance of the pigtail chest tube. There is no evidence of effusion. The heart size is within normal limits. Pulmonary vasculatures are unremarkable. IMPRESSION: Persistent patchy atelectasis at the left base with minimal left pleural effusion. No evidence of pneumothorax at 1842 Reported and signed by: Karthik Ruiz M.D. CC: Ethel Perez MD; Macie Dow MD Technologist: Sergey Schwartz RT(R); NICOLE LOPEZ RT(R) Trnscrd Date/Time/By: 12/14/2018 (1841) : By: Tia.VTL Orig Print D/T: S: 12/14/2018 (981) PAGE 1 Signed Report - XR CHEST 1 V 2018-12-14 08:08:00 FAX: Ethel Linder MD [phone] [place]: St: [facility] FAX: Emre Fraire MD [phone] Name: STACY PIZARRO [facility] : 1960 Age/S: 58/M [address] Unit #: [id number] Loc: V.[address] [place] [address] Phys: Emre Olivo MD Acct: [id number] Dis Date: Status: ADM IN PHONE #: [phone] Exam Date: 12/14/2018 0735 FAX #: [phone] Reason: effusion EXAMS: CPT CODE: [id number] XR CHEST 1 V 83218 HISTORY: Effusion and multiple rib fractures. COMPARISON: Previous day. Multiple left lower rib fractures are visible. No pneumothorax is visible. Low-lying pigtail catheter in the left pleural space. Left lower lobe segmental atelectasis. The effusion seen previously has completely resolved. Right lung is clear with dependent changes. No infiltrates. No congestion. Cardiomegaly. IMPRESSION: Marked resolution of the large left effusion after pleural catheter placement. No pneumothorax. Left rib fracture is visible again. at 0808 Reported and signed by: Dino Santos M.D. CC: Ethel Perez MD; Emre Olivo MD Technologist: NICOLE LOPEZ RT(R); Rhys Maldonado RT(R) Trninrd Date/Time/By: 12/14/2018 (0808) : By: [email or web address] Orig Print D/T: S: 12/14/2018 (1104) PAGE 1 Signed Report BODY FLUID CELL [id number] 19:40:00* Test Item Value Reference Range Comments FLUID SOURCE (test code=SOURCEFL) PLEURAL FLD LEFT PLEURAL FLUID FLUID COLOR (test code=COLFL) BROWN COLORLESS FLUID APPEARANCE (test code=APPFL) [place]PAQUE FLUID WBC AUTO (test code=WBCFLA) 1647 cells/uL FLUID RBC AUTO (test code=RBCFLA) 40526 cells/uL FLUID TOTAL CELLS (test code=TCFL) 1661 cells/uL >0 Fluid WBC RBC PMN% MN%Type cells/uL cells/uL CSF (0-5) n/a (2+/-4) (90+/-20)Peritoneal n/a n/a n/a n/aPleural n/a n/a n/a n/aSynovial <200 n/a <25% <75% CSF (0-30) n/a (4+/-4) (90+/-20) FLUID POLY (test code=POLYFL) 36.0 % FLUID LYMPHOCYTE (test code=LYMPHFL) 55.0 % FLUID MACROPHAGE (test code=MACFL) 7.0 % FLUID OTHER CELL (test code=OTHERFL) 2.0 % TOTAL CELLS COUNTED ON DIFF (test code=TOTCELLFL) 100 cells REVIEWED BY (test code=REVIEW) PATHOLOGIST SPECIMEN COMMENTS: LEFT PLEURAL FLUIDBODY FLUID CELL [id number] 18:36:00 * Test Item Value Reference Range Comments FLUID SOURCE (test code=SOURCEFL) PLEURAL FLD LEFT PLEURAL FLUID FLUID COLOR (test code=COLFL) BROWN COLORLESS FLUID APPEARANCE (test code=APPFL) [place] FLUID WBC (test code=WBCFL) per mm3 0-150 FLUID WBC AUTO (test code=WBCFLA) 1647 cells/uL FLUID RBC (test code=RBCFL) per mm3 0-50 FLUID RBC AUTO (test code=RBCFLA) 57149 cells/uL FLUID TOTAL CELLS (test code=TCFL) 1661 cells/uL >0 Fluid WBC RBC PMN% MN%Type cells/uL cells/uL CSF (0-5) n/a (2+/-4) (90+/-20)Peritoneal n/a n/a n/a n/aPleural n/a n/a n/a n/aSynovial <200 n/a <25% <75% CSF (0-30) n/a (4+/-4) (90+/-20) TOTAL CELLS COUNTED ON DIFF (test code=TOTCELLFL) cells REVIEWED BY (test code=REVIEW) PATHOLOGIST SPECIMEN COMMENTS: LEFT PLEURAL FLUIDBODY FLUID CELL [id number] 18:35:00 * Test Item Value Reference Range Comments FLUID SOURCE (test code=SOURCEFL) PLEURAL FLD LEFT PLEURAL FLUID FLUID COLOR (test code=COLFL) COLORLESS FLUID APPEARANCE (test code=APPFL) FLUID WBC (test code=WBCFL) per mm3 0-150 FLUID RBC (test code=RBCFL) per mm3 0-50 FLUID TOTAL CELLS (test code=TCFL) cells/uL >0 TOTAL CELLS COUNTED ON DIFF (test code=TOTCELLFL) cells REVIEWED BY (test code=REVIEW) PATHOLOGIST SPECIMEN COMMENTS: LEFT PLEURAL FLUIDBODY FLUID CELL [id number] 18:35:00 * Test Item Value Reference Range Comments FLUID SOURCE (test code=SOURCEFL) PLEURAL FLD LEFT PLEURAL FLUID FLUID COLOR (test code=COLFL) BROWN COLORLESS FLUID APPEARANCE (test code=APPFL) [place] FLUID WBC (test code=WBCFL) per mm3 0-150 FLUID RBC (test code=RBCFL) per mm3 0-50 FLUID TOTAL CELLS (test code=TCFL) cells/uL >0 TOTAL CELLS COUNTED ON DIFF (test code=TOTCELLFL) cells REVIEWED BY (test code=REVIEW) PATHOLOGIST SPECIMEN COMMENTS: LEFT PLEURAL FLUID- SP PERC PLEUR DRN [id number] 16:30:00 Name: STACY PIZARRO [facility] : 1960 Age/S: 58 / M [address] [facility] Unit #: [id number] Loc: [place] [address] Phys: Ethel Perez MD Acct: [id number] Dis Date: Status: ADM IN PHONE #: [phone] Exam Date: 12/13/2018 1527 FAX #: [phone] Reason: EXAMS: CPT CODE: [id number] SP PERC PLEUR DRN W/IMAG [id number] Fluoro Time: 0 DAP (Gy m2): 0 Air Kerma (mGy): 0 REASON FOR EXAM: Left rib fractures, pneumothorax and possible left hemothorax Exam order date: 12/13/2018 3:20 PM PROCEDURE: Ultrasound guided left chest tube placement Attending M.D.: Ethel Perez MD CPT code: 35182, 59857 FINDINGS: Prior to the procedure, informed consent was obtained after risks and benefits of the procedure were explained to the patient. The patient agreed and wanted to proceed. The patient was brought to special procedures. The back was prepped and draped in the usual fashion. All elements of maximal sterile techniques were followed. Ultrasound was first used for assessment of the effusion. US shows Mild effusion. Images of the effusion were submitted to PACS. 2% local lidocaine was given for local anesthetic. Under real time ultrasound guidance, a micropuncture needle was advanced into the left thoracic cavity. A guide wire was inserted and a 14 Fr catheter was inserted in the thoracic cavity. 30 cc of old bloody sample fluid obtained. The catheter was sutured to the subcutaneous tissue and connected to a Pleur-evac. Samples were submitted for gram stain, cultures, cell count, LDH, glucose, and protein. MEDICATIONS: None COMPLICATIONS: No immediate. Blood loss: less than 5cc IMPRESSION: 30 cc of old bloody sample fluid removed from the left thoracic cavity. Technically successful placement of a 14 Trin[place] chest tube for treatment of left pneumothorax and left hemothorax. at 1630 Reported and signed by: Karthik Ruiz M.D. PAGE 1 Signed Report (CONTINUED) Name: STACY PIZARRO [facility] SP : 1960 Age/S: 58 / M [address] [facility] Unit #: [id number] Loc: [place] [address] Phys: Ethel Mcgarry MD Acct: [id number] Dis Date: Status: ADM IN PHONE #: [phone] Exam Date: 12/13/2018 1527 FAX #: Reason: EXAMS: CPT CODE: [id number] SP PERC PLE UR DRN W/IMAG 24487 Fluoro Time: 0 DAP (G y m2): 0 Air Kerma (mGy): 0 <Continued> CC: Ethel Perez MD Technologist: Farrah Farmer RT(R) Trnscb Date/Time: 12/13/2018 (1629) t.SDR.VTL Orig Print D/T: S: 12/13/2018 (163) PAGE 2 Signed Report - XR CHEST 1 [id number] 16:11:00 FAX: Ethel Linder MD [phone] [place]: B St: ADM Name: STACY ELLIS [facility] : [birth year] Age/S: 58/M [address] Unit #: [id number] Loc: V.[address] [place] [address] Phys: Karthik Ruiz MD Acct: [id number] Dis Date: Status: ADM IN PHONE #: [phone] Exam Date: 12/13/2018 1554 FAX #: [phone] Reason: CHEST TUBE EXAMS: CPT CODE: [id number] XR CHEST 1 V [id number] REASON FOR EXAM: CHEST TUBE Exam Order Date: 12/13/2018 3:34 PM Ordering M.D.: Karthik Ruiz MD PROCEDURE: - XR CHEST 1 V COMPARISON: AP chest x-ray 7 hours prior FINDINGS: Interval placement of pigtail catheter in the left pleural space. Left-sided pleural effusion and atelectasis of the underlying lung appears grossly stable. Superimpos ed consolidation cannot be excluded. No pneumothorax. There is mild subsegmental atelectasis in the right lung base. Upper lungs are c lear. Cardiomediastinal silhouette and musculoskeletal findings are stable . IMPRESSION: Interval placement of left pleural drain. Remainin g findings are grossly unchanged. at 1611 Reported and signed by: Carlos Caceres MD CC: Ethel Perez MD Technologist: LINETTE MARIN Trnscrd Date/Time/By: 12/13/2018 (5901) : By: [email or web address] Orig Print D/T: S: 12/13/2018 (3883) PAGE 1 Signed Report [id number] 12:09:00* Test Item Value Reference Range Comments GLUBED (test code=GLUBED) 104 mg/dL 74-106 Performed by certified knotting machine operator portable at [facility] - XR CHEST 1 [id number] 10:11:00 FAX: Ethel Linder MD [phone] [place]: St: ADM FAX: Emre Fraire MD [phone] Name: STACY PIZARRO [facility] : 1960 Age/S: 58/M [address] [facility] Unit #: [id number] Loc: V.4 [place] [address] Phys: Emre Olivo MD Acct: [id number] Dis Date: Status: ADM IN PHONE #: [phone] Exam Date: 12/13/2018824 FAX #: [phone] Reason: effusion EXAMS: CPT CODE: [id number] XR CHEST 1 V 92579 EXAM: Chest x-ray, one view; INFORMATION: Cirrhosis, recurrent fracture; FINDINGS: Deterioration compared with the recent study from December 10, 2018. There is a 10% left-sided pneumothorax and there is an increasing left-sided pleural effusion. Persistent atelectasis of the left lower lobe. Multiple rib fractures in the left lower chest region. The right lung remains well aerated. The heart is normal in size. IMPRESSION: 1. New development of a 10% left-sided pneumothorax. 2. Enlarging left pleural effusion. In view of the rib trauma this could represent a hemothorax. at 1011 Reported and signed by: Nestor Shearer M.D. CC: Ethel Perez MD; Emre Olivo MD Technologist: Sergey Schwartz RT(R); SKIP PUTNAM RT(R) Trnscrd Date/Time/By: 12/13/2018 (1011) : By: Dale Orig Print D/T: S: 12/13/2018 (1022) PAGE 1 Signed Report [id number] 06:00:00* Test Item Value Reference Range Comments GLUBED (test code=GLUBED) 90 mg/dL 74-106 Performed by certified knotting machine operator portable at [facility] [id number] 23:47:00* Test Item Value Reference Range Comments AMMONIA (test code=AMM) 39 umol/L 11-32 SPECIMEN COMMENTS: ADD ON from blood drawn this [id number] 21:22:00 * Test Item Value Reference Range Comments GLUBED (test code=GLUBED) 104 mg/dL 74-106 Performed by certified knotting machine operator portable at [facility] [id number] 16:43:00* Test Item Value Reference Range Comments GLUBED (test code=GLUBED) 95 mg/dL 74-106 Performed by certified knotting machine operator portable at [facility] [id number] 13:24:00* Test Item Value Reference Range Comments GLUBED (test code=GLUBED) 125 mg/dL 74-106 Performed by certified knotting machine operator portable at [facility] BASIC METABOLIC [id number] 12:57:00* Test Item Value Reference Range Comments SODIUM (test code=NA) 141 mmol/L 136-145 POTASSIUM (test code=K) 3.7 mmol/L 3.5-5.1 CHLORIDE (test code=CL) 104.0 mmol/L 98-107 CARBON DIOXIDE (test code=CO2) 33.0 mmol/L 21-32 ANION GAP (test code=GAP) 7.7 10-20 GLUCOSE (test code=GLU) 107 mg/dL 74-106 BLOOD UREA NITROGEN (test code=BUN) 12 mg/dL 7-18 GLOMERULAR FILTRATION RATE (test code=GFR) > 60 mL/min >=60 Estimated GFR by using Modified MDRD formula.Chronic kidney disease is defined as either kidney damageor GFR <60 mL/min/1.73 m2 for >3 months. CREATININE (test code=CREAT) 0.50 mg/dL 0.7-1.3 BUN/CREATININE RATIO (test code=BUN/CREA) 22.8 10-20 CALCIUM (test code=CA) 7.7 mg/dL 8.5-10.1 BASIC METABOLIC [id number] 12:50:00* Test Item Value Reference Range Comments SODIUM (test code=NA) 141 mmol/L 136-145 POTASSIUM (test code=K) 3.7 mmol/L 3.5-5.1 CHLORIDE (test code=CL) 104.0 mmol/L 98-107 CARBON DIOXIDE (test code=CO2) mmol/L 21-32 ANION GAP (test code=GAP) 10-20 GLUCOSE (test code=GLU) mg/dL 74-106 BLOOD UREA NITROGEN (test code=BUN) mg/dL 7-18 GLOMERULAR FILTRATION RATE (test code=GFR) mL/min >=60 CREATININE (test code=CREAT) mg/dL 0.7-1.3 BUN/CREATININE RATIO (test code=BUN/CREA) 10-20 CALCIUM (test code=CA) mg/dL 8.5-10.1 CBC W/AUTO [id number] 12:08:00* Test Item Value Reference Range Comments WHITE BLOOD CELL (test code=WBC) 13.5 K/mm3 4.5-12.5 RED BLOOD CELL (test code=RBC) 2.77 mill/mm3 4.0-5.8 HEMOGLOBIN (test code=HGB) 9.2 gram/dL 13.0-17.5 HEMATOCRIT (test code=HCT) 28.7 % 42.0-52.0 MEAN CELL VOLUME (test code=MCV) 103.6 fL 80-98 MEAN CELL HGB (test code=MCH) 33.2 picogram 27.0-33.0 MEAN CELL HGB CONCETRATION (test code=MCHC) 32.1 gram/dL 33.0-36.0 RED CELL DISTRIBUTION WIDTH (test code=RDW) 12.6 % 11.6-16.2 RED CELL DISTRIBUTION WIDTH SD (test code=RDW-SD) 47.3 fL 37.0-51.0 PLATELET COUNT (test code=PLT) 530 K/mm3 150-450 RESULT VERIFIED BY REPEAT ANALYSIS MEAN PLATELET VOLUME (test code=MPV) 9.2 fL 6.7-11.0 NEUTROPHIL % (test code=NT%) 77.4 % 39.0-69.0 IMMATURE GRANULOCYTE % (test code=IG%) 1.6 % 0.0-5.0 LYMPHOCYTE % (test code=LY%) 5.9 % 25.0-55.0 MONOCYTE % (test code=MO%) 12.5 % 0.0-10.0 EOSINOPHIL % (test code=EO%) 2.2 % 0.0-5.0 BASOPHIL % (test code=BA%) 0.4 % 0.0-1.0 NUCLEATED RBC % (test code=NRBC%) 0.0 % 0-0 NEUTROPHIL # (test code=NT#) 10.41 K/mm3 1.8-7.7 IMMATURE GRANULOCYTE # (test code=IG#) 0.21 x10 3/uL 0-0.03 LYMPHOCYTE # (test code=LY#) 0.79 K/mm3 1.0-5.0 MONOCYTE # (test code=MO#) 1.68 K/mm3 0-0.8 EOSINOPHIL # (test code=EO#) 0.30 K/mm3 0.0-0.5 BASOPHIL # (test code=BA#) 0.06 K/mm3 0.0-0.2 NUCLEATED RBC # (test code=NRBC#) 0.00 K/mm3 0.0-0.1 [id number] 21:23:00* Test Item Value Reference Range Comments GLUBED (test code=GLUBED) 100 mg/dL 74-106 Performed by certified knotting machine operator portable at [facility] [id number] 18:18:00* Test Item Value Reference Range Comments GLUBED (test code=GLUBED) 116 mg/dL 74-106 Performed by certified knotting machine operator portable at [facility] [id number] 11:19:00* Test Item Value Reference Range Comments GLUBED (test code=GLUBED) 86 mg/dL 74-106 Performed by certified knotting machine operator portable at [facility] [id number] 06:20:00* Test Item Value Reference Range Comments GLUBED (test code=GLUBED) 104 mg/dL 74-106 Performed by certified knotting machine operator portable at [facility] CBC W/MANUAL [id number] 05:57:00* Test Item Value Reference Range Comments WHITE BLOOD CELL (test code=WBC) 14.2 K/mm3 4.5-12.5 RED BLOOD CELL (test code=RBC) 3.13 mill/mm3 4.0-5.8 HEMOGLOBIN (test code=HGB) 10.5 gram/dL 13.0-17.5 HEMATOCRIT (test code=HCT) 31.9 % 42.0-52.0 MEAN CELL VOLUME (test code=MCV) 101.9 fL 80-98 MEAN CELL HGB (test code=MCH) 33.5 picogram 27.0-33.0 MEAN CELL HGB CONCETRATION (test code=MCHC) 32.9 gram/dL 33.0-36.0 RED CELL DISTRIBUTION WIDTH (test code=RDW) 12.5 % 11.6-16.2 RED CELL DISTRIBUTION WIDTH SD (test code=RDW-SD) 46.9 fL 37.0-51.0 PLATELET COUNT (test code=PLT) 428 K/mm3 150-450 RESULT VERIFIED BY REPEAT ANALYSIS MEAN PLATELET VOLUME (test code=MPV) 9.8 fL 6.7-11.0 IMMATURE GRANULOCYTE % (test code=IG%) 1.2 % 0.0-5.0 NUCLEATED RBC % (test code=NRBC%) 0.0 % 0-0 NEUTROPHIL # (test code=NT#) 10.39 K/mm3 1.8-7.7 IMMATURE GRANULOCYTE # (test code=IG#) 0.17 x10 3/uL 0-0.03 LYMPHOCYTE # (test code=LY#) 1.26 K/mm3 1.0-5.0 MONOCYTE # (test code=MO#) 2.22 K/mm3 0-0.8 EOSINOPHIL # (test code=EO#) 0.11 K/mm3 0.0-0.5 BASOPHIL # (test code=BA#) 0.07 K/mm3 0.0-0.2 NUCLEATED RBC # (test code=NRBC#) 0.00 K/mm3 0.0-0.1 MANUAL DIFF REQUIRED (test code=MDIFF) YES STAIN ACCEPTABILITY (test code=STN ACCEPTABLE) STAIN ACCEPTABLE TOTAL CELLS COUNTED (test code=TCC) 115 #CELLS SEGMENTED NEUTROPHILS (test code=SEG) 76.5 % 39-69 BAND NEUTROPHIL (test code=BAND) 0 % 0-10 LYMPHOCYTE (test code=LYMPH) 12.2 % 25-55 REACTIVE LYMPH (test code=RELYMPH) 0 % MONOCYTE (test code=MON) 10.4 % 0-10 EOSINOPHIL (test code=EOS) 0 % 0.0-5.0 BASOPHIL (test code=BASO) 0.9 % 0-1.0 METAMYELOCYTE (test code=META) 0 % 0-0 MYELOCYTE (test code=MYELO) 0 % 0.0-0.0 PROMYELOCYTE (test code=PROM) 0 % 0-0 POLYCHROMASIA (test code=POLC) 2+ ANISOCYTOSIS (test code=ANISO) 1+ MACROCYTOSIS (test code=MACR) 1+ PLATELET ESTIMATE (test code=PLTEST) ADEQUATE PLATELET MORPHOLOGY (test code=PLTMORPH) NORMAL IMMATURE FORMS (test code=IMMAT) 0 % COMPREHENSIVE METABOLIC [id number] 04:56:00* Test Item Value Reference Range Comments SODIUM (test code=NA) 136 mmol/L 136-145 POTASSIUM (test code=K) 3.6 mmol/L 3.5-5.1 CHLORIDE (test code=CL) 99.0 mmol/L 98-107 CARBON DIOXIDE (test code=CO2) 29.0 mmol/L 21-32 ANION GAP (test code=GAP) 11.6 10-20 GLUCOSE (test code=GLU) 92 mg/dL 74-106 BLOOD UREA NITROGEN (test code=BUN) 13 mg/dL 7-18 GLOMERULAR FILTRATION RATE (test code=GFR) > 60 mL/min >=60 Estimated GFR by using Modified MDRD formula.Chronic kidney disease is defined as either kidney damageor GFR <60 mL/min/1.73 m2 for >3 months. CREATININE (test code=CREAT) 0.70 mg/dL 0.7-1.3 BUN/CREATININE RATIO (test code=BUN/CREA) 19.7 10-20 TOTAL PROTEIN (test code=PROT) 6.6 gram/dL 6.4-8.2 ALBUMIN (test code=ALB) 2.7 g/dL 3.4-5.0 GLOBULIN (test code=GLOB) 3.9 gram/dL 2.7-4.2 ALBUMIN/GLOBULIN RATIO (test code=A/G) 0.7 0.75-1.50 CALCIUM (test code=CA) 8.2 mg/dL 8.5-10.1 BILIRUBIN TOTAL (test code=BILT) 1.20 mg/dL 0.0-1.0 SGOT/AST (test code=AST) 34 IUnit/L 15-37 SGPT/ALT (test code=ALT) 16 IUnit/L 12-78 ALKALINE PHOSPHATASE TOTAL (test code=ALKP) 52 IUnit/L 45-117 Note change in reference range due to change in reagent. COMPREHENSIVE METABOLIC [id number] 04:47:00* Test Item Value Reference Range Comments SODIUM (test code=NA) 136 mmol/L 136-145 POTASSIUM (test code=K) 3.6 mmol/L 3.5-5.1 CHLORIDE (test code=CL) 99.0 mmol/L 98-107 CARBON DIOXIDE (test code=CO2) mmol/L 21-32 ANION GAP (test code=GAP) 10-20 GLUCOSE (test code=GLU) mg/dL 74-106 BLOOD UREA NITROGEN (test code=BUN) mg/dL 7-18 GLOMERULAR FILTRATION RATE (test code=GFR) mL/min >=60 CREATININE (test code=CREAT) mg/dL 0.7-1.3 BUN/CREATININE RATIO (test code=BUN/CREA) 10-20 TOTAL PROTEIN (test code=PROT) gram/dL 6.4-8.2 ALBUMIN (test code=ALB) g/dL 3.4-5.0 GLOBULIN (test code=GLOB) gram/dL 2.7-4.2 ALBUMIN/GLOBULIN RATIO (test code=A/G) 0.75-1.50 CALCIUM (test code=CA) mg/dL 8.5-10.1 BILIRUBIN TOTAL (test code=BILT) mg/dL 0.0-1.0 SGOT/AST (test code=AST) IUnit/L 15-37 SGPT/ALT (test code=ALT) IUnit/L 12-78 ALKALINE PHOSPHATASE TOTAL (test code=ALKP) IUnit/L 45-117 CBC W/MANUAL [id number] 04:45:00* Test Item Value Reference Range Comments WHITE BLOOD CELL (test code=WBC) 14.2 K/mm3 4.5-12.5 RED BLOOD CELL (test code=RBC) 3.13 mill/mm3 4.0-5.8 HEMOGLOBIN (test code=HGB) 10.5 gram/dL 13.0-17.5 HEMATOCRIT (test code=HCT) 31.9 % 42.0-52.0 MEAN CELL VOLUME (test code=MCV) 101.9 fL 80-98 MEAN CELL HGB (test code=MCH) 33.5 picogram 27.0-33.0 MEAN CELL HGB CONCETRATION (test code=MCHC) 32.9 gram/dL 33.0-36.0 RED CELL DISTRIBUTION WIDTH (test code=RDW) 12.5 % 11.6-16.2 RED CELL DISTRIBUTION WIDTH SD (test code=RDW-SD) 46.9 fL 37.0-51.0 PLATELET COUNT (test code=PLT) 428 K/mm3 150-450 RESULT VERIFIED BY REPEAT ANALYSIS MEAN PLATELET VOLUME (test code=MPV) 9.8 fL 6.7-11.0 IMMATURE GRANULOCYTE % (test code=IG%) 1.2 % 0.0-5.0 NUCLEATED RBC % (test code=NRBC%) 0.0 % 0-0 NEUTROPHIL # (test code=NT#) 10.39 K/mm3 1.8-7.7 IMMATURE GRANULOCYTE # (test code=IG#) 0.17 x10 3/uL 0-0.03 LYMPHOCYTE # (test code=LY#) 1.26 K/mm3 1.0-5.0 MONOCYTE # (test code=MO#) 2.22 K/mm3 0-0.8 EOSINOPHIL # (test code=EO#) 0.11 K/mm3 0.0-0.5 BASOPHIL # (test code=BA#) 0.07 K/mm3 0.0-0.2 NUCLEATED RBC # (test code=NRBC#) 0.00 K/mm3 0.0-0.1 MANUAL DIFF REQUIRED (test code=MDIFF) YES STAIN ACCEPTABILITY (test code=STN ACCEPTABLE) TOTAL CELLS COUNTED (test code=TCC) #CELLS SEGMENTED NEUTROPHILS (test code=SEG) % 39-69 LYMPHOCYTE (test code=LYMPH) % 25-55 MONOCYTE (test code=MON) % 0-10 EOSINOPHIL (test code=EOS) % 0.0-5.0 CABOT RINGS (test code=CAB) MORPHOLOGY COMMENT (test code=MOC) PLATELET ESTIMATE (test code=PLTEST) PLATELET MORPHOLOGY (test code=PLTMORPH) CBC W/MANUAL [id number] 04:45:00* Test Item Value Reference Range Comments WHITE BLOOD CELL (test code=WBC) 14.2 K/mm3 4.5-12.5 RED BLOOD CELL (test code=RBC) 3.13 mill/mm3 4.0-5.8 HEMOGLOBIN (test code=HGB) 10.5 gram/dL 13.0-17.5 HEMATOCRIT (test code=HCT) 31.9 % 42.0-52.0 MEAN CELL VOLUME (test code=MCV) 101.9 fL 80-98 MEAN CELL HGB (test code=MCH) 33.5 picogram 27.0-33.0 MEAN CELL HGB CONCETRATION (test code=MCHC) 32.9 gram/dL 33.0-36.0 RED CELL DISTRIBUTION WIDTH (test code=RDW) 12.5 % 11.6-16.2 RED CELL DISTRIBUTION WIDTH SD (test code=RDW-SD) 46.9 fL 37.0-51.0 PLATELET COUNT (test code=PLT) 428 K/mm3 150-450 RESULT VERIFIED BY REPEAT ANALYSIS MEAN PLATELET VOLUME (test code=MPV) 9.8 fL 6.7-11.0 IMMATURE GRANULOCYTE % (test code=IG%) 1.2 % 0.0-5.0 NUCLEATED RBC % (test code=NRBC%) 0.0 % 0-0 NEUTROPHIL # (test code=NT#) 10.39 K/mm3 1.8-7.7 IMMATURE GRANULOCYTE # (test code=IG#) 0.17 x10 3/uL 0-0.03 LYMPHOCYTE # (test code=LY#) 1.26 K/mm3 1.0-5.0 MONOCYTE # (test code=MO#) 2.22 K/mm3 0-0.8 EOSINOPHIL # (test code=EO#) 0.11 K/mm3 0.0-0.5 BASOPHIL # (test code=BA#) 0.07 K/mm3 0.0-0.2 NUCLEATED RBC # (test code=NRBC#) 0.00 K/mm3 0.0-0.1 MANUAL DIFF REQUIRED (test code=MDIFF) YES STAIN ACCEPTABILITY (test code=STN ACCEPTABLE) TOTAL CELLS COUNTED (test code=TCC) #CELLS SEGMENTED NEUTROPHILS (test code=SEG) % 39-69 LYMPHOCYTE (test code=LYMPH) % 25-55 MONOCYTE (test code=MON) % 0-10 EOSINOPHIL (test code=EOS) % 0.0-5.0 CABOT RINGS (test code=CAB) MORPHOLOGY COMMENT (test code=MOC) PLATELET ESTIMATE (test code=PLTEST) PLATELET MORPHOLOGY (test code=PLTMORPH) CBC W/MANUAL [id number] 04:45:00* Test Item Value Reference Range Comments WHITE BLOOD CELL (test code=WBC) 14.2 K/mm3 4.5-12.5 RED BLOOD CELL (test code=RBC) 3.13 mill/mm3 4.0-5.8 HEMOGLOBIN (test code=HGB) 10.5 gram/dL 13.0-17.5 HEMATOCRIT (test code=HCT) 31.9 % 42.0-52.0 MEAN CELL VOLUME (test code=MCV) 101.9 fL 80-98 MEAN CELL HGB (test code=MCH) 33.5 picogram 27.0-33.0 MEAN CELL HGB CONCETRATION (test code=MCHC) 32.9 gram/dL 33.0-36.0 RED CELL DISTRIBUTION WIDTH (test code=RDW) 12.5 % 11.6-16.2 RED CELL DISTRIBUTION WIDTH SD (test code=RDW-SD) 46.9 fL 37.0-51.0 PLATELET COUNT (test code=PLT) 428 K/mm3 150-450 RESULT VERIFIED BY REPEAT ANALYSIS MEAN PLATELET VOLUME (test code=MPV) 9.8 fL 6.7-11.0 IMMATURE GRANULOCYTE % (test code=IG%) 1.2 % 0.0-5.0 NUCLEATED RBC % (test code=NRBC%) 0.0 % 0-0 NEUTROPHIL # (test code=NT#) 10.39 K/mm3 1.8-7.7 IMMATURE GRANULOCYTE # (test code=IG#) 0.17 x10 3/uL 0-0.03 LYMPHOCYTE # (test code=LY#) 1.26 K/mm3 1.0-5.0 MONOCYTE # (test code=MO#) 2.22 K/mm3 0-0.8 EOSINOPHIL # (test code=EO#) 0.11 K/mm3 0.0-0.5 BASOPHIL # (test code=BA#) 0.07 K/mm3 0.0-0.2 NUCLEATED RBC # (test code=NRBC#) 0.00 K/mm3 0.0-0.1 MANUAL DIFF REQUIRED (test code=MDIFF) YES STAIN ACCEPTABILITY (test code=STN ACCEPTABLE) TOTAL CELLS COUNTED (test code=TCC) #CELLS SEGMENTED NEUTROPHILS (test code=SEG) % 39-69 LYMPHOCYTE (test code=LYMPH) % 25-55 MONOCYTE (test code=MON) % 0-10 EOSINOPHIL (test code=EOS) % 0.0-5.0 MORPHOLOGY COMMENT (test code=MOC) PLATELET ESTIMATE (test code=PLTEST) PLATELET MORPHOLOGY (test code=PLTMORPH) CBC W/MANUAL [id number] 04:45:00* Test Item Value Reference Range Comments WHITE BLOOD CELL (test code=WBC) 14.2 K/mm3 4.5-12.5 RED BLOOD CELL (test code=RBC) 3.13 mill/mm3 4.0-5.8 HEMOGLOBIN (test code=HGB) 10.5 gram/dL 13.0-17.5 HEMATOCRIT (test code=HCT) 31.9 % 42.0-52.0 MEAN CELL VOLUME (test code=MCV) 101.9 fL 80-98 MEAN CELL HGB (test code=MCH) 33.5 picogram 27.0-33.0 MEAN CELL HGB CONCETRATION (test code=MCHC) 32.9 gram/dL 33.0-36.0 RED CELL DISTRIBUTION WIDTH (test code=RDW) 12.5 % 11.6-16.2 RED CELL DISTRIBUTION WIDTH SD (test code=RDW-SD) 46.9 fL 37.0-51.0 PLATELET COUNT (test code=PLT) 428 K/mm3 150-450 RESULT VERIFIED BY REPEAT ANALYSIS MEAN PLATELET VOLUME (test code=MPV) 9.8 fL 6.7-11.0 IMMATURE GRANULOCYTE % (test code=IG%) 1.2 % 0.0-5.0 NUCLEATED RBC % (test code=NRBC%) 0.0 % 0-0 NEUTROPHIL # (test code=NT#) 10.39 K/mm3 1.8-7.7 IMMATURE GRANULOCYTE # (test code=IG#) 0.17 x10 3/uL 0-0.03 LYMPHOCYTE # (test code=LY#) 1.26 K/mm3 1.0-5.0 MONOCYTE # (test code=MO#) 2.22 K/mm3 0-0.8 EOSINOPHIL # (test code=EO#) 0.11 K/mm3 0.0-0.5 BASOPHIL # (test code=BA#) 0.07 K/mm3 0.0-0.2 NUCLEATED RBC # (test code=NRBC#) 0.00 K/mm3 0.0-0.1 MANUAL DIFF REQUIRED (test code=MDIFF) YES STAIN ACCEPTABILITY (test code=STN ACCEPTABLE) TOTAL CELLS COUNTED (test code=TCC) #CELLS SEGMENTED NEUTROPHILS (test code=SEG) % 39-69 LYMPHOCYTE (test code=LYMPH) % 25-55 MONOCYTE (test code=MON) % 0-10 MORPHOLOGY COMMENT (test code=MOC) PLATELET ESTIMATE (test code=PLTEST) PLATELET MORPHOLOGY (test code=PLTMORPH) CBC W/MANUAL [id number] 04:45:00* Test Item Value Reference Range Comments WHITE BLOOD CELL (test code=WBC) 14.2 K/mm3 4.5-12.5 RED BLOOD CELL (test code=RBC) 3.13 mill/mm3 4.0-5.8 HEMOGLOBIN (test code=HGB) 10.5 gram/dL 13.0-17.5 HEMATOCRIT (test code=HCT) 31.9 % 42.0-52.0 MEAN CELL VOLUME (test code=MCV) 101.9 fL 80-98 MEAN CELL HGB (test code=MCH) 33.5 picogram 27.0-33.0 MEAN CELL HGB CONCETRATION (test code=MCHC) 32.9 gram/dL 33.0-36.0 RED CELL DISTRIBUTION WIDTH (test code=RDW) 12.5 % 11.6-16.2 RED CELL DISTRIBUTION WIDTH SD (test code=RDW-SD) 46.9 fL 37.0-51.0 PLATELET COUNT (test code=PLT) 428 K/mm3 150-450 RESULT VERIFIED BY REPEAT ANALYSIS MEAN PLATELET VOLUME (test code=MPV) 9.8 fL 6.7-11.0 IMMATURE GRANULOCYTE % (test code=IG%) 1.2 % 0.0-5.0 NUCLEATED RBC % (test code=NRBC%) 0.0 % 0-0 NEUTROPHIL # (test code=NT#) 10.39 K/mm3 1.8-7.7 IMMATURE GRANULOCYTE # (test code=IG#) 0.17 x10 3/uL 0-0.03 LYMPHOCYTE # (test code=LY#) 1.26 K/mm3 1.0-5.0 MONOCYTE # (test code=MO#) 2.22 K/mm3 0-0.8 EOSINOPHIL # (test code=EO#) 0.11 K/mm3 0.0-0.5 BASOPHIL # (test code=BA#) 0.07 K/mm3 0.0-0.2 NUCLEATED RBC # (test code=NRBC#) 0.00 K/mm3 0.0-0.1 MANUAL DIFF REQUIRED (test code=MDIFF) YES STAIN ACCEPTABILITY (test code=STN ACCEPTABLE) TOTAL CELLS COUNTED (test code=TCC) #CELLS SEGMENTED NEUTROPHILS (test code=SEG) % 39-69 LYMPHOCYTE (test code=LYMPH) % 25-55 MONOCYTE (test code=MON) % 0-10 EOSINOPHIL (test code=EOS) % 0.0-5.0 CABOT RINGS (test code=CAB) MORPHOLOGY COMMENT (test code=MOC) PLATELET ESTIMATE (test code=PLTEST) PLATELET MORPHOLOGY (test code=PLTMORPH) [id number] 20:43:00* Test Item Value Reference Range Comments GLUBED (test code=GLUBED) 67 mg/dL 74-106 Performed by certified knotting machine operator portable at [facility] [id number] 16:17:00* Test Item Value Reference Range Comments GLUBED (test code=GLUBED) 118 mg/dL 74-106 Performed by certified knotting machine operator portable at [facility] CBC W/O [id number] 12:35:00* Test Item Value Reference Range Comments WHITE BLOOD CELL (test code=WBC) 14.6 K/mm3 4.5-12.5 RED BLOOD CELL (test code=RBC) 3.23 mill/mm3 4.0-5.8 HEMOGLOBIN (test code=HGB) 10.9 gram/dL 13.0-17.5 HEMATOCRIT (test code=HCT) 32.5 % 42.0-52.0 MEAN CELL VOLUME (test code=MCV) 100.6 fL 80-98 MEAN CELL HGB (test code=MCH) 33.7 picogram 27.0-33.0 MEAN CELL HGB CONCETRATION (test code=MCHC) 33.5 gram/dL 33.0-36.0 RED CELL DISTRIBUTION WIDTH (test code=RDW) 12.4 % 11.6-16.2 PLATELET COUNT (test code=PLT) 378 K/mm3 150-450 MEAN PLATELET VOLUME (test code=MPV) 9.3 fL 6.7-11.0 [id number] 11:42:00* Test Item Value Reference Range Comments GLUBED (test code=GLUBED) 105 mg/dL 74-106 Performed by certified knotting machine operator portable at [facility] - XR CHEST 1 [id number] 09:38:00 FAX: Ethel Linder MD [phone] [place]: St: ADM Name: STACY ELLIS [facility] : [birth year] Age/S: 58/M [address] [facility] Unit #: [id number] Loc: V.[address] [place] [address] Phys: Ethel Perez MD Acct: [id number] Dis Date: Status: ADM IN PHONE #: [phone] Exam Date: 12/10/2018820 FAX #: [phone] Reason: sob,cough EXAMS: CPT CODE: [id number] XR CHEST 1 V [id number] EXAM: Chest x-ray, and colon INFORMATION: Shortness of breath and cough, rib fracture; IMPRESSION: 1. Persistent partial atelectasis of the left lower lobe and small left pleural effusion. 2. The previously seen soft tissue emphysema along the left chest wall has almost completely resolved. 3. No further changes. Displaced rib fractures on the left - ribs 8, 9 and 10. at 0938 Reported and signed by: Nestor Shearer M.D. CC: Ethel Perez MD Technologist: Meeta Grier(R) Trnscrd Date/Time/By: 12/10/19 19 (0938) : By: BrennaGRW Orig Print D/T: S: 12/10/2018 (1972) PAGE 1 Signed Report ACUTE HEPATITIS [id number] 07:27:00* Test Item Value Reference Range Comments AB HEPATITIS A IGM (test code=HAVMAB) Negative Negative AG HEPAT B SURF (test code=HBSAG) Negative Negative HEPATITIS B CORE ANTIBODY,IGM (test code=HBCMAB) Negative Negative AB HEPATITIS C (test code=HCVAB) <0.1 0.0-0.9 INFCE Result Units: s/co ratio Negative: < 0.8 Indeterminate: 0.8 - 0.9 Positive: > 0.9 The CDC recommends that a positive HCV antibody result be followed up with a HCV Nucleic Acid Amplification test ([id number]).Performed At: [facility] [id number] [place], [place] [id number] Roni Chavez MD Ph:[phone] CBC W/MANUAL [id number] 06:29:00* Test Item Value Reference Range Comments WHITE BLOOD CELL (test code=WBC) 12.9 K/mm3 4.5-12.5 RED BLOOD CELL (test code=RBC) 3.15 mill/mm3 4.0-5.8 HEMOGLOBIN (test code=HGB) 10.5 gram/dL 13.0-17.5 HEMATOCRIT (test code=HCT) 32.1 % 42.0-52.0 MEAN CELL VOLUME (test code=MCV) 101.9 fL 80-98 MEAN CELL HGB (test code=MCH) 33.3 picogram 27.0-33.0 MEAN CELL HGB CONCETRATION (test code=MCHC) 32.7 gram/dL 33.0-36.0 RED CELL DISTRIBUTION WIDTH (test code=RDW) 12.6 % 11.6-16.2 RED CELL DISTRIBUTION WIDTH SD (test code=RDW-SD) 46.8 fL 37.0-51.0 PLATELET COUNT (test code=PLT) 352 K/mm3 150-450 RESULT VERIFIED BY REPEAT ANALYSIS MEAN PLATELET VOLUME (test code=MPV) 9.5 fL 6.7-11.0 IMMATURE GRANULOCYTE % (test code=IG%) 1.2 % 0.0-5.0 NUCLEATED RBC % (test code=NRBC%) 0.0 % 0-0 NEUTROPHIL # (test code=NT#) 9.12 K/mm3 1.8-7.7 IMMATURE GRANULOCYTE # (test code=IG#) 0.15 x10 3/uL 0-0.03 LYMPHOCYTE # (test code=LY#) 1.15 K/mm3 1.0-5.0 MONOCYTE # (test code=MO#) 2.32 K/mm3 0-0.8 EOSINOPHIL # (test code=EO#) 0.15 K/mm3 0.0-0.5 BASOPHIL # (test code=BA#) 0.03 K/mm3 0.0-0.2 NUCLEATED RBC # (test code=NRBC#) 0.00 K/mm3 0.0-0.1 MANUAL DIFF REQUIRED (test code=MDIFF) YES STAIN ACCEPTABILITY (test code=STN ACCEPTABLE) STAIN ACCEPTABLE TOTAL CELLS COUNTED (test code=TCC) 115 #CELLS SEGMENTED NEUTROPHILS (test code=SEG) 79.1 % 39-69 BAND NEUTROPHIL (test code=BAND) 0 % 0-10 LYMPHOCYTE (test code=LYMPH) 10.4 % 25-55 REACTIVE LYMPH (test code=RELYMPH) 0 % MONOCYTE (test code=MON) 9.6 % 0-10 EOSINOPHIL (test code=EOS) 0.9 % 0.0-5.0 BASOPHIL (test code=BASO) 0 % 0-1.0 METAMYELOCYTE (test code=META) 0 % 0-0 MYELOCYTE (test code=MYELO) 0 % 0.0-0.0 PROMYELOCYTE (test code=PROM) 0 % 0-0 PLATELET ESTIMATE (test code=PLTEST) ADEQUATE PLATELET MORPHOLOGY (test code=PLTMORPH) NORMAL IMMATURE FORMS (test code=IMMAT) 0 % [id number] 06:13:00* Test Item Value Reference Range Comments GLUBED (test code=GLUBED) 95 mg/dL 74-106 Performed by certified knotting machine operator portable at [facility] COMPREHENSIVE METABOLIC [id number] 05:34:00* Test Item Value Reference Range Comments SODIUM (test code=NA) 134 mmol/L 136-145 POTASSIUM (test code=K) 3.5 mmol/L 3.5-5.1 CHLORIDE (test code=CL) 98.0 mmol/L 98-107 CARBON DIOXIDE (test code=CO2) 29.0 mmol/L 21-32 ANION GAP (test code=GAP) 10.5 10-20 GLUCOSE (test code=GLU) 107 mg/dL 74-106 BLOOD UREA NITROGEN (test code=BUN) 11 mg/dL 7-18 GLOMERULAR FILTRATION RATE (test code=GFR) > 60 mL/min >=60 Estimated GFR by using Modified MDRD formula.Chronic kidney disease is defined as either kidney damageor GFR <60 mL/min/1.73 m2 for >3 months. CREATININE (test code=CREAT) 0.60 mg/dL 0.7-1.3 BUN/CREATININE RATIO (test code=BUN/CREA) 17.1 10-20 TOTAL PROTEIN (test code=PROT) 6.3 gram/dL 6.4-8.2 ALBUMIN (test code=ALB) 2.8 g/dL 3.4-5.0 GLOBULIN (test code=GLOB) 3.5 gram/dL 2.7-4.2 ALBUMIN/GLOBULIN RATIO (test code=A/G) 0.8 0.75-1.50 CALCIUM (test code=CA) 8.3 mg/dL 8.5-10.1 BILIRUBIN TOTAL (test code=BILT) 1.10 mg/dL 0.0-1.0 SGOT/AST (test code=AST) 28 IUnit/L 15-37 SGPT/ALT (test code=ALT) 16 IUnit/L 12-78 ALKALINE PHOSPHATASE TOTAL (test code=ALKP) 49 IUnit/L 45-117 Note change in reference range due to change in reagent. COMPREHENSIVE METABOLIC [id number] 05:23:00* Test Item Value Reference Range Comments SODIUM (test code=NA) 134 mmol/L 136-145 POTASSIUM (test code=K) 3.5 mmol/L 3.5-5.1 CHLORIDE (test code=CL) 98.0 mmol/L 98-107 CARBON DIOXIDE (test code=CO2) mmol/L 21-32 ANION GAP (test code=GAP) 10-20 GLUCOSE (test code=GLU) mg/dL 74-106 BLOOD UREA NITROGEN (test code=BUN) mg/dL 7-18 GLOMERULAR FILTRATION RATE (test code=GFR) mL/min >=60 CREATININE (test code=CREAT) mg/dL 0.7-1.3 BUN/CREATININE RATIO (test code=BUN/CREA) 10-20 TOTAL PROTEIN (test code=PROT) gram/dL 6.4-8.2 ALBUMIN (test code=ALB) g/dL 3.4-5.0 GLOBULIN (test code=GLOB) gram/dL 2.7-4.2 ALBUMIN/GLOBULIN RATIO (test code=A/G) 0.75-1.50 CALCIUM (test code=CA) mg/dL 8.5-10.1 BILIRUBIN TOTAL (test code=BILT) mg/dL 0.0-1.0 SGOT/AST (test code=AST) IUnit/L 15-37 SGPT/ALT (test code=ALT) IUnit/L 12-78 ALKALINE PHOSPHATASE TOTAL (test code=ALKP) IUnit/L 45-117 CBC W/MANUAL [id number] 05:16:00* Test Item Value Reference Range Comments WHITE BLOOD CELL (test code=WBC) 12.9 K/mm3 4.5-12.5 RED BLOOD CELL (test code=RBC) 3.15 mill/mm3 4.0-5.8 HEMOGLOBIN (test code=HGB) 10.5 gram/dL 13.0-17.5 HEMATOCRIT (test code=HCT) 32.1 % 42.0-52.0 MEAN CELL VOLUME (test code=MCV) 101.9 fL 80-98 MEAN CELL HGB (test code=MCH) 33.3 picogram 27.0-33.0 MEAN CELL HGB CONCETRATION (test code=MCHC) 32.7 gram/dL 33.0-36.0 RED CELL DISTRIBUTION WIDTH (test code=RDW) 12.6 % 11.6-16.2 RED CELL DISTRIBUTION WIDTH SD (test code=RDW-SD) 46.8 fL 37.0-51.0 PLATELET COUNT (test code=PLT) 352 K/mm3 150-450 RESULT VERIFIED BY REPEAT ANALYSIS MEAN PLATELET VOLUME (test code=MPV) 9.5 fL 6.7-11.0 IMMATURE GRANULOCYTE % (test code=IG%) 1.2 % 0.0-5.0 NUCLEATED RBC % (test code=NRBC%) 0.0 % 0-0 NEUTROPHIL # (test code=NT#) 9.12 K/mm3 1.8-7.7 IMMATURE GRANULOCYTE # (test code=IG#) 0.15 x10 3/uL 0-0.03 LYMPHOCYTE # (test code=LY#) 1.15 K/mm3 1.0-5.0 MONOCYTE # (test code=MO#) 2.32 K/mm3 0-0.8 EOSINOPHIL # (test code=EO#) 0.15 K/mm3 0.0-0.5 BASOPHIL # (test code=BA#) 0.03 K/mm3 0.0-0.2 NUCLEATED RBC # (test code=NRBC#) 0.00 K/mm3 0.0-0.1 MANUAL DIFF REQUIRED (test code=MDIFF) YES STAIN ACCEPTABILITY (test code=STN ACCEPTABLE) TOTAL CELLS COUNTED (test code=TCC) #CELLS SEGMENTED NEUTROPHILS (test code=SEG) % 39-69 LYMPHOCYTE (test code=LYMPH) % 25-55 MONOCYTE (test code=MON) % 0-10 EOSINOPHIL (test code=EOS) % 0.0-5.0 CABOT RINGS (test code=CAB) MORPHOLOGY COMMENT (test code=MOC) PLATELET ESTIMATE (test code=PLTEST) PLATELET MORPHOLOGY (test code=PLTMORPH) CBC W/MANUAL [id number] 05:16:00* Test Item Value Reference Range Comments WHITE BLOOD CELL (test code=WBC) 12.9 K/mm3 4.5-12.5 RED BLOOD CELL (test code=RBC) 3.15 mill/mm3 4.0-5.8 HEMOGLOBIN (test code=HGB) 10.5 gram/dL 13.0-17.5 HEMATOCRIT (test code=HCT) 32.1 % 42.0-52.0 MEAN CELL VOLUME (test code=MCV) 101.9 fL 80-98 MEAN CELL HGB (test code=MCH) 33.3 picogram 27.0-33.0 MEAN CELL HGB CONCETRATION (test code=MCHC) 32.7 gram/dL 33.0-36.0 RED CELL DISTRIBUTION WIDTH (test code=RDW) 12.6 % 11.6-16.2 RED CELL DISTRIBUTION WIDTH SD (test code=RDW-SD) 46.8 fL 37.0-51.0 PLATELET COUNT (test code=PLT) 352 K/mm3 150-450 RESULT VERIFIED BY REPEAT ANALYSIS MEAN PLATELET VOLUME (test code=MPV) 9.5 fL 6.7-11.0 IMMATURE GRANULOCYTE % (test code=IG%) 1.2 % 0.0-5.0 NUCLEATED RBC % (test code=NRBC%) 0.0 % 0-0 NEUTROPHIL # (test code=NT#) 9.12 K/mm3 1.8-7.7 IMMATURE GRANULOCYTE # (test code=IG#) 0.15 x10 3/uL 0-0.03 LYMPHOCYTE # (test code=LY#) 1.15 K/mm3 1.0-5.0 MONOCYTE # (test code=MO#) 2.32 K/mm3 0-0.8 EOSINOPHIL # (test code=EO#) 0.15 K/mm3 0.0-0.5 BASOPHIL # (test code=BA#) 0.03 K/mm3 0.0-0.2 NUCLEATED RBC # (test code=NRBC#) 0.00 K/mm3 0.0-0.1 MANUAL DIFF REQUIRED (test code=MDIFF) YES STAIN ACCEPTABILITY (test code=STN ACCEPTABLE) TOTAL CELLS COUNTED (test code=TCC) #CELLS SEGMENTED NEUTROPHILS (test code=SEG) % 39-69 LYMPHOCYTE (test code=LYMPH) % 25-55 MONOCYTE (test code=MON) % 0-10 EOSINOPHIL (test code=EOS) % 0.0-5.0 CABOT RINGS (test code=CAB) MORPHOLOGY COMMENT (test code=MOC) PLATELET ESTIMATE (test code=PLTEST) PLATELET MORPHOLOGY (test code=PLTMORPH) CBC W/MANUAL [id number] 05:16:00* Test Item Value Reference Range Comments WHITE BLOOD CELL (test code=WBC) 12.9 K/mm3 4.5-12.5 RED BLOOD CELL (test code=RBC) 3.15 mill/mm3 4.0-5.8 HEMOGLOBIN (test code=HGB) 10.5 gram/dL 13.0-17.5 HEMATOCRIT (test code=HCT) 32.1 % 42.0-52.0 MEAN CELL VOLUME (test code=MCV) 101.9 fL 80-98 MEAN CELL HGB (test code=MCH) 33.3 picogram 27.0-33.0 MEAN CELL HGB CONCETRATION (test code=MCHC) 32.7 gram/dL 33.0-36.0 RED CELL DISTRIBUTION WIDTH (test code=RDW) 12.6 % 11.6-16.2 RED CELL DISTRIBUTION WIDTH SD (test code=RDW-SD) 46.8 fL 37.0-51.0 PLATELET COUNT (test code=PLT) 352 K/mm3 150-450 RESULT VERIFIED BY REPEAT ANALYSIS MEAN PLATELET VOLUME (test code=MPV) 9.5 fL 6.7-11.0 IMMATURE GRANULOCYTE % (test code=IG%) 1.2 % 0.0-5.0 NUCLEATED RBC % (test code=NRBC%) 0.0 % 0-0 NEUTROPHIL # (test code=NT#) 9.12 K/mm3 1.8-7.7 IMMATURE GRANULOCYTE # (test code=IG#) 0.15 x10 3/uL 0-0.03 LYMPHOCYTE # (test code=LY#) 1.15 K/mm3 1.0-5.0 MONOCYTE # (test code=MO#) 2.32 K/mm3 0-0.8 EOSINOPHIL # (test code=EO#) 0.15 K/mm3 0.0-0.5 BASOPHIL # (test code=BA#) 0.03 K/mm3 0.0-0.2 NUCLEATED RBC # (test code=NRBC#) 0.00 K/mm3 0.0-0.1 MANUAL DIFF REQUIRED (test code=MDIFF) YES STAIN ACCEPTABILITY (test code=STN ACCEPTABLE) TOTAL CELLS COUNTED (test code=TCC) #CELLS SEGMENTED NEUTROPHILS (test code=SEG) % 39-69 LYMPHOCYTE (test code=LYMPH) % 25-55 MONOCYTE (test code=MON) % 0-10 EOSINOPHIL (test code=EOS) % 0.0-5.0 MORPHOLOGY COMMENT (test code=MOC) PLATELET ESTIMATE (test code=PLTEST) PLATELET MORPHOLOGY (test code=PLTMORPH) CBC W/MANUAL [id number] 05:16:00* Test Item Value Reference Range Comments WHITE BLOOD CELL (test code=WBC) 12.9 K/mm3 4.5-12.5 RED BLOOD CELL (test code=RBC) 3.15 mill/mm3 4.0-5.8 HEMOGLOBIN (test code=HGB) 10.5 gram/dL 13.0-17.5 HEMATOCRIT (test code=HCT) 32.1 % 42.0-52.0 MEAN CELL VOLUME (test code=MCV) 101.9 fL 80-98 MEAN CELL HGB (test code=MCH) 33.3 picogram 27.0-33.0 MEAN CELL HGB CONCETRATION (test code=MCHC) 32.7 gram/dL 33.0-36.0 RED CELL DISTRIBUTION WIDTH (test code=RDW) 12.6 % 11.6-16.2 RED CELL DISTRIBUTION WIDTH SD (test code=RDW-SD) 46.8 fL 37.0-51.0 PLATELET COUNT (test code=PLT) 352 K/mm3 150-450 RESULT VERIFIED BY REPEAT ANALYSIS MEAN PLATELET VOLUME (test code=MPV) 9.5 fL 6.7-11.0 IMMATURE GRANULOCYTE % (test code=IG%) 1.2 % 0.0-5.0 NUCLEATED RBC % (test code=NRBC%) 0.0 % 0-0 NEUTROPHIL # (test code=NT#) 9.12 K/mm3 1.8-7.7 IMMATURE GRANULOCYTE # (test code=IG#) 0.15 x10 3/uL 0-0.03 LYMPHOCYTE # (test code=LY#) 1.15 K/mm3 1.0-5.0 MONOCYTE # (test code=MO#) 2.32 K/mm3 0-0.8 EOSINOPHIL # (test code=EO#) 0.15 K/mm3 0.0-0.5 BASOPHIL # (test code=BA#) 0.03 K/mm3 0.0-0.2 NUCLEATED RBC # (test code=NRBC#) 0.00 K/mm3 0.0-0.1 MANUAL DIFF REQUIRED (test code=MDIFF) YES STAIN ACCEPTABILITY (test code=STN ACCEPTABLE) TOTAL CELLS COUNTED (test code=TCC) #CELLS SEGMENTED NEUTROPHILS (test code=SEG) % 39-69 LYMPHOCYTE (test code=LYMPH) % 25-55 MONOCYTE (test code=MON) % 0-10 MORPHOLOGY COMMENT (test code=MOC) PLATELET ESTIMATE (test code=PLTEST) PLATELET MORPHOLOGY (test code=PLTMORPH) CBC W/MANUAL [id number] 05:16:00* Test Item Value Reference Range Comments WHITE BLOOD CELL (test code=WBC) 12.9 K/mm3 4.5-12.5 RED BLOOD CELL (test code=RBC) 3.15 mill/mm3 4.0-5.8 HEMOGLOBIN (test code=HGB) 10.5 gram/dL 13.0-17.5 HEMATOCRIT (test code=HCT) 32.1 % 42.0-52.0 MEAN CELL VOLUME (test code=MCV) 101.9 fL 80-98 MEAN CELL HGB (test code=MCH) 33.3 picogram 27.0-33.0 MEAN CELL HGB CONCETRATION (test code=MCHC) 32.7 gram/dL 33.0-36.0 RED CELL DISTRIBUTION WIDTH (test code=RDW) 12.6 % 11.6-16.2 RED CELL DISTRIBUTION WIDTH SD (test code=RDW-SD) 46.8 fL 37.0-51.0 PLATELET COUNT (test code=PLT) 352 K/mm3 150-450 RESULT VERIFIED BY REPEAT ANALYSIS MEAN PLATELET VOLUME (test code=MPV) 9.5 fL 6.7-11.0 IMMATURE GRANULOCYTE % (test code=IG%) 1.2 % 0.0-5.0 NUCLEATED RBC % (test code=NRBC%) 0.0 % 0-0 NEUTROPHIL # (test code=NT#) 9.12 K/mm3 1.8-7.7 IMMATURE GRANULOCYTE # (test code=IG#) 0.15 x10 3/uL 0-0.03 LYMPHOCYTE # (test code=LY#) 1.15 K/mm3 1.0-5.0 MONOCYTE # (test code=MO#) 2.32 K/mm3 0-0.8 EOSINOPHIL # (test code=EO#) 0.15 K/mm3 0.0-0.5 BASOPHIL # (test code=BA#) 0.03 K/mm3 0.0-0.2 NUCLEATED RBC # (test code=NRBC#) 0.00 K/mm3 0.0-0.1 MANUAL DIFF REQUIRED (test code=MDIFF) YES STAIN ACCEPTABILITY (test code=STN ACCEPTABLE) TOTAL CELLS COUNTED (test code=TCC) #CELLS SEGMENTED NEUTROPHILS (test code=SEG) % 39-69 LYMPHOCYTE (test code=LYMPH) % 25-55 MONOCYTE (test code=MON) % 0-10 EOSINOPHIL (test code=EOS) % 0.0-5.0 CABOT RINGS (test code=CAB) MORPHOLOGY COMMENT (test code=MOC) PLATELET ESTIMATE (test code=PLTEST) PLATELET MORPHOLOGY (test code=PLTMORPH) - XR CHEST 1 [id number] 21:29:00 FAX: Uma Mejía MD [phone] [place]: B St: [facility] FAX: Ethel Linder MD [phone] Name: STACY PIZARRO [facility] : 1960 Age/S: 58/M [address]ia Unit #: [id number] Loc: V.20[address] [place] [address] Phys: Uma Richmond MD Acct: [id number] Dis Date: Status: ADM IN PHONE #: [phone] Exam Date: 12/09/20182049 FAX #: [phone] Reason: fever; hx rib fractures. small pneumothorax EXAMS: CPT CODE: [id number] XR CHEST 1 V 65966 EXAM: Chest x-ray, one view; INFORMATION: Rib fractures, fever; FINDINGS: Increased left basilar densities are combination of atelectasis of the left lower lobe and a left pleural effusion. The effusion has enlarged compared with the study from 2 days ago. Again seen are slightly displaced left lower rib fractures. The previously seen soft tissue emphysema has decreased. The right lung is well aerated. Previously seen basilar atelectatic changes in the right lung have largely resolved. Unremarkable cardiac mediastinal silhouette. IMPRESSION: 1. Left lower lobe atelectasis and slightly enlarging left pleural effusion compared with the recent study. 2. Left-sided rib fractures. 3. No evidence of residual pneumothorax. at 2128 Reported and signed by: Nestor Shearer M.D. CC: Uma Richmond MD; Ethel Perez MD Technologist: BETTINA CRUZ Trnscrd Date/Time/By: 12/09/2018 (2128) : By: BrennaGRW Orig Print D/T: S: 12/09/2018 (2131) PAGE 1 Signed Report [id number] 17:38:00* Test Item Value Reference Range Comments GLUBED (test code=GLUBED) 159 mg/dL 74-106 Performed by certified knotting machine operator portable at [facility] [id number] 15:17:00* Test Item Value Reference Range Comments GLUBED (test code=GLUBED) 125 mg/dL 74-106 Performed by certified knotting machine operator portable at [facility] [id number] 15:17:00* Test Item Value Reference Range Comments GLUVÍCTOR (test code=GLUBED) 33 mg/dL 74-106 Test performed as P.O.C. by nursing staff.Performed by certified knotting machine operator portable at [facility] - CT ABD PELVIS [id number] 09:19:00 Name: STACY PIZARRO [facility] : 1960 Age/S: 58 / M [address] [facility] Unit #: [id number] Loc: [place] [address] Phys: Sunday Alvarez MD Acct: [id number] Dis Date: Status: ADM IN PHONE #: [phone] Exam Date: 12/09/2018855 FAX #: [phone] Reason: trauma EXAMS: CPT CODE: [id number] CT ABD PELVIS W/CONT 89277 HISTORY: Pain after trauma. COMPARISON: December 06, 2018. CT abdomen and pelvis with IV contrast: 100 mL of Isovue-370. Automated exposure control. CT ABDOMEN: The lung bases demonstrating left lower lobe segmental atelectasis and small basilar effusions and laterally. Dependent changes on the right. The liver is enhancing homogeneously wall albeit partially obscured extensively by beam hardening artifact from patient's overlying arms. No laceration visible. Gallbladder is without radiopaque stones. Small perihepatic fluid is noted. Portal vein and hepatic artery appear unremarkable. Large subcapsular collection noted along the spleen which is being is essentially unchanged. The subcapsular fluid collection compressing the spleen along its lateral margin measuring approximately 6.8 cm in AP direction, 4.5 cm in width and 10.5 cm in length and is also extensively obscured by beam hardening artifact. The average Hounsfield unit measurement ranging up to -35. Laceration seen superiorly is barely visible due to artifact. The stomach is distended incompletely and limited in evaluation. Pancreas is enhancing homogeneously with unremarkable adrenals. Kidneys are free from hy droureteronephrosis with homogeneous enhancement. Bilateral excretion. No pathologic adenopathy. Well-opacified abdominal and pelvic v asculature with mild atherosclerotic change. No bowel obstruction or colitis or diverticulitis or enteritis. Constipation. CT PELVIS: Appendix is normal. Pelvic bowel loops are unobstructed. S mall hemorrhagic free fluid within the pelvis with average Hounsfield unit measurement of 61. PAGE 1 Signed Report (CONTINUED) Name: STACY PIZARRO [facility] : 1960 Age/S: 58 / M [address] Unit #: [id number] Loc: [place] [address] Phys: Sunday Alvarez MD Acct: [id number] Dis Date: Status: ADM IN PHONE #: [phone] Exam Date: 12/09/2018 0856 FAX #: [phone] Reason: trauma EXAMS: CPT CODE: [id number] CT ABD PELVIS W/CONT 54786 < Continued> Unremarkable well-distended urinary bladder. The prostate is measuring 4.8 cm. No pelvic pathologic adenopathy. No free fluid or abscess. Subcutaneous tissues and musculature demonstrating contusion and air along the left posterior lateral flank. Multiple left posterior lateral rib fractures noted again. IMPRESSION: Small splenic laceration which is considered grade 2. 1 cm deep laceration within the superior aspect with large subcapsular hematoma occupying greater than 50% of the surface area of the spleen with compression of the spleen. The subcapsular collection measured 6.8 x 4.5 x 10.5 cm. Multiple old left rib fractures. No pneumothorax. Pelvic hemorrhagic free fluid as well. This pattern remains stable and has not demonstrated any worsening. at 0919 Reported and signed by: Dino Santos M.D. CC: Sunday Alvarez MD Technologist:Justin Mack RT(R),(MR),(CT); CTDI: DLP: Trnscb Date/Time: 12/09/2018 (09) t.SDR.[email or web address] Orig Print D/T: S: 12/09/2018 (921) CTDI: DLP: PAGE 2 Signed Report [id number] 06:31:00* Test Item Value Reference Range Comments GLUBED (test code=GLUBED) 95 mg/dL 74-106 Performed by certified knotting machine operator portable at [facility] [id number] 21:10:00* Test Item Value Reference Range Comments GLUBED (test code=GLUBED) 123 mg/dL 74-106 Performed by certified knotting machine operator portable at [facility] [id number] 16:50:00* Test Item Value Reference Range Comments GLUBED (test code=GLUBED) 111 mg/dL 74-106 Performed by certified knotting machine operator portable at [facility] COMPREHENSIVE METABOLIC [id number] 16:50:00* Test Item Value Reference Range Comments SODIUM (test code=NA) 136 mmol/L 136-145 POTASSIUM (test code=K) 4.4 mmol/L 3.5-5.1 CHLORIDE (test code=CL) 103.0 mmol/L 98-107 CARBON DIOXIDE (test code=CO2) 27.0 mmol/L 21-32 ANION GAP (test code=GAP) 10.4 10-20 GLUCOSE (test code=GLU) 106 mg/dL 74-106 BLOOD UREA NITROGEN (test code=BUN) 18 mg/dL 7-18 GLOMERULAR FILTRATION RATE (test code=GFR) > 60 mL/min >=60 Estimated GFR by using Modified MDRD formula.Chronic kidney disease is defined as either kidney damageor GFR <60 mL/min/1.73 m2 for >3 months. CREATININE (test code=CREAT) 0.90 mg/dL 0.7-1.3 BUN/CREATININE RATIO (test code=BUN/CREA) 19.5 10-20 TOTAL PROTEIN (test code=PROT) 6.2 gram/dL 6.4-8.2 ALBUMIN (test code=ALB) 3.2 g/dL 3.4-5.0 GLOBULIN (test code=GLOB) 3.0 gram/dL 2.7-4.2 ALBUMIN/GLOBULIN RATIO (test code=A/G) 1.1 0.75-1.50 CALCIUM (test code=CA) 8.2 mg/dL 8.5-10.1 BILIRUBIN TOTAL (test code=BILT) 0.30 mg/dL 0.0-1.0 SGOT/AST (test code=AST) 32 IUnit/L 15-37 SGPT/ALT (test code=ALT) 21 IUnit/L 12-78 ALKALINE PHOSPHATASE TOTAL (test code=ALKP) 57 IUnit/L 45-117 Note change in reference range due to change in reagent. LIPID PROFILE (CORONARY RISK)2018-12-08 16:50:00* Test Item Value Reference Range Comments TRIGLYCERIDES (test code=TRIG) 60 mg/dL 20-150 CHOLESTEROL (test code=CHOL) 132 mg/dL 0-200 CHOLESTEROL/HDL RATIO (test code=CHOLHDL) 1.0 RATIO 0-4.9 RISK ASSOCIATED WITH CHOL/HDL RATIOS: Risk Male Female1/2 AVERAGE 3.43 3.27AVERAGE 4.97 4.442X AVERAGE 9.55 7.053X AVERAGE 23.39 11.04 REFERENCE VALUE IS RELATED TO RISK LEVELS ASRECOMMENDED BY THE [facility]. HEART, LUNG, AND BLOOD INST. HDL CHOLESTEROL (test code=HDL) 80 mg/dL 40-60 LIPOPROTEIN LDL (test code=LDL) 48 mg/dL 100-129 Reference Interval: mg/dL mmol/L Optimal <100 <2.6Near/above optimal 100-129 2.6- 3.3Borderline High 130-159 3.4-4.1High 160-189 4.1-4.9Very High >=190 >=4.9=========This LDL result is a direct measurement.========= THYROID STIMULATING [id number] 16:50:00* Test Item Value Reference Range Comments THYROID STIMULATING HORMONE (test code=TSH) 1.420 uIU/mL 0.36-3.74 TSH REFERENCE RANGES: EUTHYROID: 0.35 - 4.3 mIU/mL HYPO : > 5.5 mIU/mL HYPER : < 0.35 mIU/mL ALPHA FETOPROTEIN TUMOR [id number] 16:50:00* Test Item Value Reference Range Comments ALPHA FETOPROTEIN TUMOR MARKER (test code=AFPTM) 3.0 ng/mL 0.0-8.3 [facility] Electrochemiluminescence Immunoassay(ECLIA)Values obtained with different assay methods or kits cannotbe used interchangeably. Results cannot be interpreted asabsolute evidence of the presence or absence of malignantdisease.This test is not interpretable in females.Performed At: [facility] [id number] [place], [place] [id number] Roni Chavez MD Ph:[phone] [id number] 15:07:00* Test Item Value Reference Range Comments GLUBED (test code=GLUBED) 66 mg/dL 74-106 Performed by certified knotting machine operator portable at [facility] [id number] 11:17:00* Test Item Value Reference Range Comments GLUBED (test code=GLUBED) 73 mg/dL 74-106 Performed by certified knotting machine operator portable at [facility] BASIC METABOLIC [id number] 07:28:00* Test Item Value Reference Range Comments SODIUM (test code=NA) 139 mmol/L 136-145 POTASSIUM (test code=K) 4.8 mmol/L 3.5-5.1 CHLORIDE (test code=CL) 103.0 mmol/L 98-107 CARBON DIOXIDE (test code=CO2) 29.0 mmol/L 21-32 ANION GAP (test code=GAP) 11.8 10-20 GLUCOSE (test code=GLU) 83 mg/dL 74-106 BLOOD UREA NITROGEN (test code=BUN) 5 mg/dL 7-18 GLOMERULAR FILTRATION RATE (test code=GFR) > 60 mL/min >=60 Estimated GFR by using Modified MDRD formula.Chronic kidney disease is defined as either kidney damageor GFR <60 mL/min/1.73 m2 for >3 months. CREATININE (test code=CREAT) 0.60 mg/dL 0.7-1.3 BUN/CREATININE RATIO (test code=BUN/CREA) 8.9 10-20 CALCIUM (test code=CA) 8.4 mg/dL 8.5-10.1 [id number] 07:28:00* Test Item Value Reference Range Comments PHOSPHORUS (test code=PHOS) 3.3 mg/dL 2.5-4.9 [id number] 07:28:00* Test Item Value Reference Range Comments MAGNESIUM (test code=MAG) 2.0 mg/dL 1.8-2.4 CALCIUM [id number] 07:28:00* Test Item Value Reference Range Comments CALCIUM IONIZED (test code=AMBROCIO) 1.29 mmol/L 1.12-1.32 BASIC METABOLIC [id number] 07:23:00* Test Item Value Reference Range Comments SODIUM (test code=NA) 139 mmol/L 136-145 POTASSIUM (test code=K) 4.8 mmol/L 3.5-5.1 CHLORIDE (test code=CL) 103.0 mmol/L 98-107 CARBON DIOXIDE (test code=CO2) mmol/L 21-32 ANION GAP (test code=GAP) 10-20 GLUCOSE (test code=GLU) mg/dL 74-106 BLOOD UREA NITROGEN (test code=BUN) mg/dL 7-18 GLOMERULAR FILTRATION RATE (test code=GFR) mL/min >=60 CREATININE (test code=CREAT) mg/dL 0.7-1.3 BUN/CREATININE RATIO (test code=BUN/CREA) 10-20 CALCIUM (test code=CA) mg/dL 8.5-10.1 [id number] 07:23:00* Test Item Value Reference Range Comments PHOSPHORUS (test code=PHOS) mg/dL 2.5-4.9 [id number] 07:23:00* Test Item Value Reference Range Comments MAGNESIUM (test code=MAG) mg/dL 1.8-2.4 CALCIUM [id number] 07:23:00* Test Item Value Reference Range Comments CALCIUM IONIZED (test code=AMBROCIO) 1.29 mmol/L 1.12-1.32 BASIC METABOLIC [id number] 07:18:00* Test Item Value Reference Range Comments SODIUM (test code=NA) 139 mmol/L 136-145 POTASSIUM (test code=K) 4.8 mmol/L 3.5-5.1 CHLORIDE (test code=CL) 103.0 mmol/L 98-107 CARBON DIOXIDE (test code=CO2) mmol/L 21-32 ANION GAP (test code=GAP) 10-20 GLUCOSE (test code=GLU) mg/dL 74-106 BLOOD UREA NITROGEN (test code=BUN) mg/dL 7-18 GLOMERULAR FILTRATION RATE (test code=GFR) mL/min >=60 CREATININE (test code=CREAT) mg/dL 0.7-1.3 BUN/CREATININE RATIO (test code=BUN/CREA) 10-20 CALCIUM (test code=CA) mg/dL 8.5-10.1 [id number] 07:18:00* Test Item Value Reference Range Comments PHOSPHORUS (test code=PHOS) mg/dL 2.5-4.9 [id number] 07:18:00* Test Item Value Reference Range Comments MAGNESIUM (test code=MAG) mg/dL 1.8-2.4 CALCIUM [id number] 07:18:00* Test Item Value Reference Range Comments CALCIUM IONIZED (test code=AMBROCIO) mmol/L 1.12-1.32 CBC W/AUTO [id number] 07:05:00* Test Item Value Reference Range Comments WHITE BLOOD CELL (test code=WBC) 10.9 K/mm3 4.5-12.5 RED BLOOD CELL (test code=RBC) 2.72 mill/mm3 4.0-5.8 HEMOGLOBIN (test code=HGB) 9.1 gram/dL 13.0-17.5 HEMATOCRIT (test code=HCT) 28.1 % 42.0-52.0 MEAN CELL VOLUME (test code=MCV) 103.3 fL 80-98 MEAN CELL HGB (test code=MCH) 33.5 picogram 27.0-33.0 MEAN CELL HGB CONCETRATION (test code=MCHC) 32.4 gram/dL 33.0-36.0 RED CELL DISTRIBUTION WIDTH (test code=RDW) 12.5 % 11.6-16.2 RED CELL DISTRIBUTION WIDTH SD (test code=RDW-SD) 46.8 fL 37.0-51.0 PLATELET COUNT (test code=PLT) 234 K/mm3 150-450 MEAN PLATELET VOLUME (test code=MPV) 9.5 fL 6.7-11.0 NEUTROPHIL % (test code=NT%) 70.4 % 39.0-69.0 IMMATURE GRANULOCYTE % (test code=IG%) 0.5 % 0.0-5.0 LYMPHOCYTE % (test code=LY%) 13.7 % 25.0-55.0 MONOCYTE % (test code=MO%) 12.9 % 0.0-10.0 EOSINOPHIL % (test code=EO%) 1.9 % 0.0-5.0 BASOPHIL % (test code=BA%) 0.6 % 0.0-1.0 NUCLEATED RBC % (test code=NRBC%) 0.0 % 0-0 NEUTROPHIL # (test code=NT#) 7.67 K/mm3 1.8-7.7 IMMATURE GRANULOCYTE # (test code=IG#) 0.06 x10 3/uL 0-0.03 LYMPHOCYTE # (test code=LY#) 1.50 K/mm3 1.0-5.0 MONOCYTE # (test code=MO#) 1.41 K/mm3 0-0.8 EOSINOPHIL # (test code=EO#) 0.21 K/mm3 0.0-0.5 BASOPHIL # (test code=BA#) 0.07 K/mm3 0.0-0.2 NUCLEATED RBC # (test code=NRBC#) 0.00 K/mm3 0.0-0.1 MANUAL DIFF REQUIRED (test code=MDIFF) NO [id number] 21:35:00* Test Item Value Reference Range Comments GLUBED (test code=GLUBED) 94 mg/dL 74-106 Performed by certified knotting machine operator portable at [facility] [id number] 21:34:00* Test Item Value Reference Range Comments GLUBED (test code=GLUBED) 95 mg/dL 74-106 Performed by certified knotting machine operator portable at [facility] CBC W/AUTO [id number] 18:14:00* Test Item Value Reference Range Comments WHITE BLOOD CELL (test code=WBC) 9.8 K/mm3 4.5-12.5 RED BLOOD CELL (test code=RBC) 2.58 mill/mm3 4.0-5.8 HEMOGLOBIN (test code=HGB) 8.7 gram/dL 13.0-17.5 HEMATOCRIT (test code=HCT) 26.8 % 42.0-52.0 MEAN CELL VOLUME (test code=MCV) 103.9 fL 80-98 MEAN CELL HGB (test code=MCH) 33.7 picogram 27.0-33.0 MEAN CELL HGB CONCETRATION (test code=MCHC) 32.5 gram/dL 33.0-36.0 RED CELL DISTRIBUTION WIDTH (test code=RDW) 12.6 % 11.6-16.2 RED CELL DISTRIBUTION WIDTH SD (test code=RDW-SD) 47.1 fL 37.0-51.0 PLATELET COUNT (test code=PLT) 187 K/mm3 150-450 MEAN PLATELET VOLUME (test code=MPV) 9.8 fL 6.7-11.0 NEUTROPHIL % (test code=NT%) 72.0 % 39.0-69.0 IMMATURE GRANULOCYTE % (test code=IG%) 0.7 % 0.0-5.0 LYMPHOCYTE % (test code=LY%) 13.6 % 25.0-55.0 MONOCYTE % (test code=MO%) 12.0 % 0.0-10.0 EOSINOPHIL % (test code=EO%) 1.2 % 0.0-5.0 BASOPHIL % (test code=BA%) 0.5 % 0.0-1.0 NUCLEATED RBC % (test code=NRBC%) 0.0 % 0-0 NEUTROPHIL # (test code=NT#) 7.03 K/mm3 1.8-7.7 IMMATURE GRANULOCYTE # (test code=IG#) 0.07 x10 3/uL 0-0.03 LYMPHOCYTE # (test code=LY#) 1.33 K/mm3 1.0-5.0 MONOCYTE # (test code=MO#) 1.17 K/mm3 0-0.8 EOSINOPHIL # (test code=EO#) 0.12 K/mm3 0.0-0.5 BASOPHIL # (test code=BA#) 0.05 K/mm3 0.0-0.2 NUCLEATED RBC # (test code=NRBC#) 0.00 K/mm3 0.0-0.1 MANUAL DIFF REQUIRED (test code=MDIFF) NO - XR CHEST 1 [id number] 08:12:00 FAX: Sunday Dale [phone] [place]: [address] St: ADM Name: STACY ELLIS [facility] : 11/28/18 63 Age/S: 58/M [address] Unit #: [id number] Loc: V.2066 [place] [address] Phys: Sunday Alvarez MD Acct: [id number] Dis Date: Status: ADM IN PHONE #: [phone] Exam Date: 12/07/2018 0745 FAX #: [phone] Reason: Trauma EXAMS: CPT CODE: [id number] XR CHEST 1 V 81906 EXAM: Chest x-ray, one view; INFORMATION: Trauma, multiple rib fracture; IMPRESSION: 1. Slightly increased basilar atelectasis. 2. Otherwise, no major change compared with yesterday's study; moderate soft tissue emphysema along the left lateral chest wall and the left neck and supraclavicular region, associated with rib fractures. No obvious pneumothorax on this study. 3. The heart size is within normal limits. at 0812 Reported and signed by: Nestor Shearer M.D. CC: Sunday Alvarez MD Technologist: NICOLE DIAZ(R) Trnscrd Date/Time/By: 12/07/2018 (811) : By: BrennaGRW Orig Print D/T: S: 12/07/2018 (814) PAGE 1 Signed Report [id number] 06:23:00 * Test Item Value Reference Range Comments GLUBED (test code=GLUBED) 103 mg/dL 74-106 Performed by certified knotting machine operator portable at [facility] CBC W/AUTO [id number] 05:39:00* Test Item Value Reference Range Comments WHITE BLOOD CELL (test code=WBC) 10.2 K/mm3 4.5-12.5 RED BLOOD CELL (test code=RBC) 2.47 mill/mm3 4.0-5.8 HEMOGLOBIN (test code=HGB) 8.3 gram/dL 13.0-17.5 HEMATOCRIT (test code=HCT) 25.8 % 42.0-52.0 MEAN CELL VOLUME (test code=MCV) 104.5 fL 80-98 MEAN CELL HGB (test code=MCH) 33.6 picogram 27.0-33.0 MEAN CELL HGB CONCETRATION (test code=MCHC) 32.2 gram/dL 33.0-36.0 RED CELL DISTRIBUTION WIDTH (test code=RDW) 12.9 % 11.6-16.2 RED CELL DISTRIBUTION WIDTH SD (test code=RDW-SD) 49.3 fL 37.0-51.0 PLATELET COUNT (test code=PLT) 186 K/mm3 150-450 MEAN PLATELET VOLUME (test code=MPV) 9.8 fL 6.7-11.0 NEUTROPHIL % (test code=NT%) 75.4 % 39.0-69.0 IMMATURE GRANULOCYTE % (test code=IG%) 0.5 % 0.0-5.0 LYMPHOCYTE % (test code=LY%) 11.9 % 25.0-55.0 MONOCYTE % (test code=MO%) 11.0 % 0.0-10.0 EOSINOPHIL % (test code=EO%) 0.7 % 0.0-5.0 BASOPHIL % (test code=BA%) 0.5 % 0.0-1.0 NUCLEATED RBC % (test code=NRBC%) 0.0 % 0-0 NEUTROPHIL # (test code=NT#) 7.72 K/mm3 1.8-7.7 IMMATURE GRANULOCYTE # (test code=IG#) 0.05 x10 3/uL 0-0.03 LYMPHOCYTE # (test code=LY#) 1.22 K/mm3 1.0-5.0 MONOCYTE # (test code=MO#) 1.13 K/mm3 0-0.8 EOSINOPHIL # (test code=EO#) 0.07 K/mm3 0.0-0.5 BASOPHIL # (test code=BA#) 0.05 K/mm3 0.0-0.2 NUCLEATED RBC # (test code=NRBC#) 0.00 K/mm3 0.0-0.1 CBC W/AUTO [id number] 21:53:00* Test Item Value Reference Range Comments WHITE BLOOD CELL (test code=WBC) 10.0 K/mm3 4.5-12.5 RED BLOOD CELL (test code=RBC) 2.35 mill/mm3 4.0-5.8 HEMOGLOBIN (test code=HGB) 8.1 gram/dL 13.0-17.5 HEMATOCRIT (test code=HCT) 24.5 % 42.0-52.0 MEAN CELL VOLUME (test code=MCV) 104.3 fL 80-98 MEAN CELL HGB (test code=MCH) 34.5 picogram 27.0-33.0 MEAN CELL HGB CONCETRATION (test code=MCHC) 33.1 gram/dL 33.0-36.0 RED CELL DISTRIBUTION WIDTH (test code=RDW) 12.9 % 11.6-16.2 RED CELL DISTRIBUTION WIDTH SD (test code=RDW-SD) 47.9 fL 37.0-51.0 PLATELET COUNT (test code=PLT) 166 K/mm3 150-450 MEAN PLATELET VOLUME (test code=MPV) 9.7 fL 6.7-11.0 NEUTROPHIL % (test code=NT%) 73.4 % 39.0-69.0 IMMATURE GRANULOCYTE % (test code=IG%) 0.4 % 0.0-5.0 LYMPHOCYTE % (test code=LY%) 14.2 % 25.0-55.0 MONOCYTE % (test code=MO%) 11.3 % 0.0-10.0 EOSINOPHIL % (test code=EO%) 0.4 % 0.0-5.0 BASOPHIL % (test code=BA%) 0.3 % 0.0-1.0 NUCLEATED RBC % (test code=NRBC%) 0.0 % 0-0 NEUTROPHIL # (test code=NT#) 7.36 K/mm3 1.8-7.7 IMMATURE GRANULOCYTE # (test code=IG#) 0.04 x10 3/uL 0-0.03 LYMPHOCYTE # (test code=LY#) 1.42 K/mm3 1.0-5.0 MONOCYTE # (test code=MO#) 1.13 K/mm3 0-0.8 EOSINOPHIL # (test code=EO#) 0.04 K/mm3 0.0-0.5 BASOPHIL # (test code=BA#) 0.03 K/mm3 0.0-0.2 NUCLEATED RBC # (test code=NRBC#) 0.00 K/mm3 0.0-0.1 - CT ABD PELVIS [id number] 19:30:00 Name: STACY PIZARRO [facility] : 1960 Age/S: 58 / M [address] [facility] Unit #: [id number] Loc: [place] [address] Phys: Sunday Alvarez MD Acct: [id number] Dis Date: Status: ADM IN PHONE #: [phone] Exam Date: 12/06/20181929 FAX #: [phone] Reason: Trauma EXAMS: CPT CODE: [id number] CT ABD PELVIS W/CONT 10920 REASON FOR EXAM: Trauma EXAM ORDER DATE: 12/06/2018 6:15 PM Ordering Zbigniew: Sunday Alvarez MD PROCEDURE: - CT ABD PELVIS W/CONT COMPARISON: FINDINGS: CT images of the abdomen and pelvis were obtained with IV and without oral contrast at 5mm. Dose reduction techniques were applied The liver and pancreas are grossly within normal limits. The gallbladder is unremarkable by CT. The kidneys are within normal limits. The urinary bladder is unremarkable. The colon, small bowel, and stomach are within normal limits without evidence of obstruction. The appendix is unremarkable. No evidence of free air . IMPRESSION: Small splenic laceration in the upper pole with mild surrounding subcapsular hematoma. Persistent mild subcutaneous emphysema along the left chest wall with a tiny anteriorly located left pneumothorax associated with multiple left rib fractures. Small bilateral pleural effusions larger on the right. Mild hyperdense ascites in the pelvis suggestive of hemoperitoneum. at 1930 Reported and signed by: Karthik Ruiz M.D. CC: Sundya Alvarez MD Technologist:Julia Hummel RT(R) CTDI: DLP: Trnscb Date/Time: 12/06/2018 (1929) [email or web address] Orig Print D/T: S: 12/06/2018 (1932) CTDI: DLP: PAGE 1 Signed Report - US ABDOMEN [id number] 18:11:00 Name: STACY PIZARRO [facility] : 1960 Age/S: 58 / M [address] Unit #: [id number] Loc: [place] [address] Phys: Ethel Perez MD Acct: [id number] Dis Date: Status: ADM IN PHONE #: [phone] Exam Date: 12/06/2018 1712 FAX #: [phone] Reason: Cirrhosis,ascites EXAMS: CPT CODE: [id number] US ABDOMEN COMPLETE [id number] REASON FOR EXAM: Cirrhosis,ascites EXAM ORDER DATE: 12/06/2018 11:29 AM Attending Zbigniew: Ethel Perez MD PROCEDURE: - US ABDOMEN COMPLETE FINDINGS: The liver is mildly echogenic and nodular in contour. There is no evidence of focal mass identified. The pancreas is within normal limits. The right kidney measures 8.8 x 4.5 cm. The left kidney measures 9.5 x 5.3 cm. There is no evidence of hydronephrosis. There is no evidence of nephrolithiasis. There is no evidence of renal mass. The spleen measures 9.4 cm. The gallbladder is unremarkable without evidence of gall stone.The common bile duct measures 0.4 cm. Minimal ascites in the right subphrenic space The aorta and IVC are within normal limits. The portal vein is patent with hepatopetal flow IMPRESSION: Cirrhosis of the liver. Minimal free fluid in the right subphrenic space at 1811 Reported and signed by: Karthik Ruiz M.D. CC: Ethel Perez MD; Sunday Alvarez MD Technologist: Shana Graf Trnscb Date/Time: 12/06/2018 (1810) [email or web address] Orig Print D/T: S: 12/06/2018 (1813) Probe: PAGE 1 Signed Report PROTHROMBIN [id number] 14:52:00* Test Item Value Reference Range Comments PROTHROMBIN TIME PATIENT (test code=PTP) 10.6 seconds 9.0-14.0 INTERNATIONAL NORMAL RATIO (test code=INR) 0.9 0.8-1.2 The therapeutic range for oral anticoagulant therapy formost indications is an international normalized ratio (INR)of between 2.0 and 3.0. The recommended therapeutic INRrange for various clinical situations is listed below: Clinical Situation INR range Pulmonary e mbolism treatment (2.0-3.0)Venous thrombosis treatmentVenous thrombosis prophylaxis (high risk surgery)Prevention of systemic embolism from: Acute myocardial infarction Valvular heart disease Atrial fibrillation Mechanical prosthetic heart valves (2.5-3.5) IS PATIENT ON ANTICOAGULANTS? [id number] 14:45:00* Test Item Value Reference Range Comments PHOSPHORUS (test code=PHOS) 3.3 mg/dL 2.5-4.9 [id number] 14:45:00* Test Item Value Reference Range Comments MAGNESIUM (test code=MAG) 2.1 mg/dL 1.8-2.4 VITAMIN [id number] 14:45:00* Test Item Value Reference Range Comments VITAMIN B12 (test code=VITB12) 358 pg/mL 193-986 FOLIC [id number] 14:45:00* Test Item Value Reference Range Comments FOLIC ACID (test code=FOL) 8.5 ng/mL 3.10-17.50 COMPREHENSIVE METABOLIC [id number] 14:27:00* Test Item Value Reference Range Comments SODIUM (test code=NA) 136 mmol/L 136-145 POTASSIUM (test code=K) 4.4 mmol/L 3.5-5.1 CHLORIDE (test code=CL) 103.0 mmol/L 98-107 CARBON DIOXIDE (test code=CO2) 27.0 mmol/L 21-32 ANION GAP (test code=GAP) 10.4 10-20 GLUCOSE (test code=GLU) 106 mg/dL 74-106 BLOOD UREA NITROGEN (test code=BUN) 18 mg/dL 7-18 GLOMERULAR FILTRATION RATE (test code=GFR) > 60 mL/min >=60 Estimated GFR by using Modified MDRD formula.Chronic kidney disease is defined as either kidney damageor GFR <60 mL/min/1.73 m2 for >3 months. CREATININE (test code=CREAT) 0.90 mg/dL 0.7-1.3 BUN/CREATININE RATIO (test code=BUN/CREA) 19.5 10-20 TOTAL PROTEIN (test code=PROT) 6.2 gram/dL 6.4-8.2 ALBUMIN (test code=ALB) 3.2 g/dL 3.4-5.0 GLOBULIN (test code=GLOB) 3.0 gram/dL 2.7-4.2 ALBUMIN/GLOBULIN RATIO (test code=A/G) 1.1 0.75-1.50 CALCIUM (test code=CA) 8.2 mg/dL 8.5-10.1 BILIRUBIN TOTAL (test code=BILT) 0.30 mg/dL 0.0-1.0 SGOT/AST (test code=AST) 32 IUnit/L 15-37 SGPT/ALT (test code=ALT) 21 IUnit/L 12-78 ALKALINE PHOSPHATASE TOTAL (test code=ALKP) 57 IUnit/L 45-117 Note change in reference range due to change in reagent. LIPID PROFILE (CORONARY RISK)2018-12-06 14:27:00* Test Item Value Reference Range Comments TRIGLYCERIDES (test code=TRIG) 60 mg/dL 20-150 CHOLESTEROL (test code=CHOL) 132 mg/dL 0-200 CHOLESTEROL/HDL RATIO (test code=CHOLHDL) 1.0 RATIO 0-4.9 RISK ASSOCIATED WITH CHOL/HDL RATIOS: Risk Male Female1/2 AVERAGE 3.43 3.27AVERAGE 4.97 4.442X AVERAGE 9.55 7.053X AVERAGE 23.39 11.04 REFERENCE VALUE IS RELATED TO RISK LEVELS ASRECOMMENDED BY THE PRAKASH. HEART, LUNG, AND BLOOD INST. HDL CHOLESTEROL (test code=HDL) 80 mg/dL 40-60 LIPOPROTEIN LDL (test code=LDL) 48 mg/dL 100-129 Reference Interval: mg/dL mmol/L Optimal <100 <2.6Near/above optimal 100-129 2.6- 3.3Borderline High 130-159 3.4-4.1High 160-189 4.1-4.9Very High >=190 >=4.9=========This LDL result is a direct measurement.========= THYROID STIMULATING [id number] 14:27:00* Test Item Value Reference Range Comments THYROID STIMULATING HORMONE (test code=TSH) 1.420 uIU/mL 0.36-3.74 TSH REFERENCE RANGES: EUTHYROID: 0.35 - 4.3 mIU/mL HYPO : > 5.5 mIU/mL HYPER : < 0.35 mIU/mL ALPHA FETOPROTEIN TUMOR [id number] 14:27:00* Test Item Value Reference Range Comments ALPHA FETOPROTEIN TUMOR MARKER (test code=AFPTM) ng/mL [id number] 14:22:00* Test Item Value Reference Range Comments GLYCOSYLATED HEMOGLOBIN (HA1C) (test code=GLYHGB) 5.1 % HbA1 4.8-6.0 ESTIMATED AVERAGE GLUCOSE (test code=EAG) 100 MG/DL [id number] 14:18:00* Test Item Value Reference Range Comments AMMONIA (test code=AMM) 34 umol/L 11-32 COMPREHENSIVE METABOLIC [id number] 14:13:00* Test Item Value Reference Range Comments SODIUM (test code=NA) 136 mmol/L 136-145 POTASSIUM (test code=K) 4.4 mmol/L 3.5-5.1 CHLORIDE (test code=CL) 103.0 mmol/L 98-107 CARBON DIOXIDE (test code=CO2) mmol/L 21-32 ANION GAP (test code=GAP) 10-20 GLUCOSE (test code=GLU) mg/dL 74-106 BLOOD UREA NITROGEN (test code=BUN) mg/dL 7-18 GLOMERULAR FILTRATION RATE (test code=GFR) mL/min >=60 CREATININE (test code=CREAT) mg/dL 0.7-1.3 BUN/CREATININE RATIO (test code=BUN/CREA) 10-20 TOTAL PROTEIN (test code=PROT) gram/dL 6.4-8.2 ALBUMIN (test code=ALB) g/dL 3.4-5.0 GLOBULIN (test code=GLOB) gram/dL 2.7-4.2 ALBUMIN/GLOBULIN RATIO (test code=A/G) 0.75-1.50 CALCIUM (test code=CA) mg/dL 8.5-10.1 BILIRUBIN TOTAL (test code=BILT) mg/dL 0.0-1.0 SGOT/AST (test code=AST) IUnit/L 15-37 SGPT/ALT (test code=ALT) IUnit/L 12-78 ALKALINE PHOSPHATASE TOTAL (test code=ALKP) IUnit/L 45-117 LIPID PROFILE (CORONARY RISK)2018-12-06 14:13:00* Test Item Value Reference Range Comments TRIGLYCERIDES (test code=TRIG) mg/dL 20-150 CHOLESTEROL (test code=CHOL) mg/dL 0-200 CHOLESTEROL/HDL RATIO (test code=CHOLHDL) RATIO 0-4.9 HDL CHOLESTEROL (test code=HDL) mg/dL 40-60 LIPOPROTEIN LDL (test code=LDL) mg/dL 100-129 THYROID STIMULATING [id number] 14:13:00* Test Item Value Reference Range Comments THYROID STIMULATING HORMONE (test code=TSH) uIU/mL 0.36-3.74 ALPHA FETOPROTEIN TUMOR [id number] 14:13:00* Test Item Value Reference Range Comments ALPHA FETOPROTEIN TUMOR MARKER (test code=AFPTM) ng/mL CBC W/AUTO [id number] 14:02:00* Test Item Value Reference Range Comments WHITE BLOOD CELL (test code=WBC) 11.5 K/mm3 4.5-12.5 RED BLOOD CELL (test code=RBC) 2.55 mill/mm3 4.0-5.8 HEMOGLOBIN (test code=HGB) 8.7 gram/dL 13.0-17.5 RESULT VERIFIED BY REPEAT ANALYSIS HEMATOCRIT (test code=HCT) 26.2 % 42.0-52.0 MEAN CELL VOLUME (test code=MCV) 102.7 fL 80-98 MEAN CELL HGB (test code=MCH) 34.1 picogram 27.0-33.0 MEAN CELL HGB CONCETRATION (test code=MCHC) 33.2 gram/dL 33.0-36.0 RED CELL DISTRIBUTION WIDTH (test code=RDW) 12.9 % 11.6-16.2 RED CELL DISTRIBUTION WIDTH SD (test code=RDW-SD) 48.3 fL 37.0-51.0 PLATELET COUNT (test code=PLT) 169 K/mm3 150-450 MEAN PLATELET VOLUME (test code=MPV) 10.0 fL 6.7-11.0 NEUTROPHIL % (test code=NT%) 76.1 % 39.0-69.0 IMMATURE GRANULOCYTE % (test code=IG%) 0.5 % 0.0-5.0 LYMPHOCYTE % (test code=LY%) 10.1 % 25.0-55.0 MONOCYTE % (test code=MO%) 12.7 % 0.0-10.0 EOSINOPHIL % (test code=EO%) 0.2 % 0.0-5.0 BASOPHIL % (test code=BA%) 0.4 % 0.0-1.0 NUCLEATED RBC % (test code=NRBC%) 0.0 % 0-0 NEUTROPHIL # (test code=NT#) 8.73 K/mm3 1.8-7.7 IMMATURE GRANULOCYTE # (test code=IG#) 0.06 x10 3/uL 0-0.03 LYMPHOCYTE # (test code=LY#) 1.16 K/mm3 1.0-5.0 MONOCYTE # (test code=MO#) 1.46 K/mm3 0-0.8 EOSINOPHIL # (test code=EO#) 0.02 K/mm3 0.0-0.5 BASOPHIL # (test code=BA#) 0.05 K/mm3 0.0-0.2 NUCLEATED RBC # (test code=NRBC#) 0.00 K/mm3 0.0-0.1 MANUAL DIFF REQUIRED (test code=MDIFF) NO - XR CHEST 1 [id number] 14:00:00 FAX: Sunday Dale [phone] [place]: [address]: ADM Name: STACY ELLIS [facility]: 11/[birth year]/18 [birth year] Age/S: 58/M [address] [facility] Unit #: [id number] Loc: V.2066 [place] [address] Phys: Sunday Alvarez MD Acct: [id number] Dis Date: Status: ADM IN PHONE #: [phone] Exam Date: 12/06/2018 1346 FAX #: [phone] Reason: Trauma EXAMS: CPT CODE: [id number] XR CHEST 1 V 42168 HISTORY: Post trauma and pain. COMPARISON: Same day. Left subcutaneous air is unchanged. Pneumothorax is not clearly visible which is seen in the CT scan. Small left effusion with dependent changes. Left rib fractures are not visible either. Right lung is clear. Mild cardiomegaly. IMPRESSION : No pneumothorax visible on the CT chest is not visible on th is exam. Left subcutaneous air is unchanged. Small left effusion with subsegmental atelectasis. at 1400 Reported and signed by: Gregorio Santos M.D. CC: Sunday Alvarez MD Technologist: Nat Walton RT(R) Trnscrd Date/Time/By: 12/06/2018 (1400) : By: [email or web address] Orig Print D/T: S: 12/06/2018 (1403) PAGE 1 Signed Report DRUGS OF ABUSE SCREEN 2018-12-06 13:43:00* Test Item Value Reference Range Comments UA PH DIPSTICK (test code=BHAVNA) 5.0 5.0-8.0 URN COCAINE (test code=COCAURN) NEGATIVE <300 ng/mL URN CANNABINOIDS (test code=CANNABURN) NEGATIVE <50 ng/mL URN AMPHETAMINE (test code=AMPHETURN) NEGATIVE <1000 ng/mL URN BARBITURATE (test code=BARBITURN) NEGATIVE <200 ng/mL URN BENZODIAZEPINE (test code=BENZOURN) POSITIVE <200 ng/mL This test provides only a preliminary test result. A morespecific alternate chemical method must be used in order toobtain a confirmed analytical result. Gas chromatography/mass spectrometry (GC/MS) is thepreferred confirmatory method. Other chemical confirmationmethods are available. Clinical consideration and professional judgment should be applied to any drug of abusetest result, particularly when preliminary positive resultsare used.Unconfirmed screening results must not be used fornon-medical purposes (e.g., employment testing, legaltesting). URN OPIATES (test code=OPIATURN) POSITIVE <300 ng/mL This test provides only a preliminary test result. A morespecific alternate chemical method must be used in order toobtain a confirmed analytical result. Gas chromatography/mass spectrometry (GC/MS) is thepreferred confirmatory method. Other chemical confirmationmethods are available. Clinical consideration and professional judgment should be applied to any drug of abusetest result, particularly when preliminary positive resultsare used.Unconfirmed screening results must not be used fornon-medical purposes (e.g., employment testing, legaltesting). URN PHENCYCLIDINE (PCP) (test code=PHENCURN) NEGATIVE <25 ng/mL URN METHADONE (test code=METHAURN) NEGATIVE <300 ng/mL DRUGS OF ABUSE SCREEN [id number] 13:25:00* Test Item Value Reference Range Comments UA PH DIPSTICK (test code=BHAVNA) 5.0-8.0 URN COCAINE (test code=COCAURN) NEGATIVE <300 ng/mL URN CANNABINOIDS (test code=CANNABURN) NEGATIVE <50 ng/mL URN AMPHETAMINE (test code=AMPHETURN) NEGATIVE <1000 ng/mL URN BARBITURATE (test code=BARBITURN) NEGATIVE <200 ng/mL URN BENZODIAZEPINE (test code=BENZOURN) POSITIVE <200 ng/mL This test provides only a preliminary test result. A morespecific alternate chemical method must be used in order toobtain a confirmed analytical result. Gas chromatography/mass spectrometry (GC/MS) is thepreferred confirmatory method. Other chemical confirmationmethods are available. Clinical consideration and professional judgment should be applied to any drug of abusetest result, particularly when preliminary positive resultsare used.Unconfirmed screening results must not be used fornon-medical purposes (e.g., employment testing, legaltesting). URN OPIATES (test code=OPIATURN) POSITIVE <300 ng/mL This test provides only a preliminary test result. A morespecific alternate chemical method must be used in order toobtain a confirmed analytical result. Gas chromatography/mass spectrometry (GC/MS) is thepreferred confirmatory method. Other chemical confirmationmethods are available. Clinical consideration and professional judgment should be applied to any drug of abusetest result, particularly when preliminary positive resultsare used.Unconfirmed screening results must not be used fornon-medical purposes (e.g., employment testing, legaltesting). URN PHENCYCLIDINE (PCP) (test code=PHENCURN) NEGATIVE <25 ng/mL URN METHADONE (test code=METHAURN) NEGATIVE <300 ng/mL URINALYSIS [id number] 13:20:00* Test Item Value Reference Range Comments UA COLOR (test code=COLU) YELLOW YELLOW UA APPEARANCE (test code=APPU) CLEAR CLEAR UA GLUCOSE DIPSTICK (test code=DGLUU) NEGATIVE mg/dL NEGATIVE UA BILIRUBIN DIPSTICK (test code=BILU) NEGATIVE mg/dL NEGATIVE UA KETONE DIPSTICK (test code=KETU) 5 (Trace) mg/dL NEGATIVE UA SPECIFIC GRAVITY (test code=SGU) 1.046 1.001-1.035 UA BLOOD DIPSTICK (test code=MAYO) Negative NEGATIVE UA PH DIPSTICK (test code=BHAVNA) 5.0 5.0-8.0 UA PROTEIN DIPSTICK (test code=PROU) Negative mg/dL NEGATIVE UA UROBILINIOGEN DIPSTICK (test code=URO) NEGATIVE mg/dL NEGATIVE UA NITRITE DIPSTICK (test code=HARITHA) NEGATIVE NEGATIVE UA LEUKOCYTE ESTERASE W REFLEX (test code=LEUUR) TRACE NEGATIVE UA WBC (test code=WBCU) 6-10 #/HPF 0-5 UA RBC (test code=RBCU) 0-2 #/HPF 0-5 UA EPITHELIAL CELLS (test code=EPIU) FEW per HPF FEW UA MUCUS (test code=MUCU) FEW #/LPF FEW Urine Source? CatheterURINALYSIS [id number] 13:14:00* Test Item Value Reference Range Comments UA COLOR (test code=COLU) YELLOW YELLOW UA APPEARANCE (test code=APPU) CLEAR CLEAR UA GLUCOSE DIPSTICK (test code=DGLUU) NEGATIVE mg/dL NEGATIVE UA BILIRUBIN DIPSTICK (test code=BILU) NEGATIVE mg/dL NEGATIVE UA KETONE DIPSTICK (test code=KETU) 5 (Trace) mg/dL NEGATIVE UA SPECIFIC GRAVITY (test code=SGU) 1.046 1.001-1.035 UA BLOOD DIPSTICK (test code=MAYO) Negative NEGATIVE UA PH DIPSTICK (test code=BHAVNA) 5.0 5.0-8.0 UA PROTEIN DIPSTICK (test code=PROU) Negative mg/dL NEGATIVE UA UROBILINIOGEN DIPSTICK (test code=URO) NEGATIVE mg/dL NEGATIVE UA NITRITE DIPSTICK (test code=HARITHA) NEGATIVE NEGATIVE UA LEUKOCYTE ESTERASE W REFLEX (test code=LEUUR) TRACE NEGATIVE UA WBC (test code=WBCU) per HPF 0-5 Urine Source? Catheter- XR CHEST 1 [id number] 09:37:00 FAX: Sunday Dale [phone] [place]: St: ADM Name: STACY ELLIS [facility] : [birth year] 63 Age/S: 58/M [address] [facility] Unit #: [id number] Loc: [address] [place] [address] Phys: Sunday Alvarez MD Acct: [id number] Dis Date: Status: ADM IN PHONE #: [phone] Exam Date: 12/06/2018 0849 FAX #: [phone] Reason: Trauma EXAMS: CPT CODE: [id number] XR CHEST 1 V 48259 HISTORY: Pain after trauma. COMPARISON: Chest x-ray and CT chest from December 05, 2018. Extensive left subcutaneous air noted extending in the supraclavicular location. No pneumothorax is visible which is visible on the CT chest. Dep endent changes. No infiltrates or congestion cardiac silhouette is mildly enlarged. Left rib fractures are not clearly visible. IMPRESSION : No pneumothorax which was visible on the CT chest. Unchanged left subcutaneous air extending into the supraclavicular location. No infiltrates or congestion. at 0937 Reported and signed by: Ivonne Santos M.D. CC: Sunday Alvarez MD Technologist: Corona ABDUL) Trnscrd Date/Time/By: 12/06/2018 (0937) : By: [email or web address] Orig Print D/T: S: 12/06/2018 (2132) PAGE 1 Signed Report LACTIC [id number] 03:53:00 * Test Item Value Reference Range Comments LACTIC ACID (test code=LACT) 1.8 mmol/L 0.4-1.9 PROTHROMBIN [id number] 23:16:00* Test Item Value Reference Range Comments PROTHROMBIN TIME PATIENT (test code=PTP) 10.0 seconds 9.0-13.0 INTERNATIONAL NORMAL RATIO (test code=INR) 0.9 0.8-1.2 The therapeutic range for oral anticoagulant therapy formost indications is an international normalized ratio (INR)of between 2.0 and 3.0. The recommended therapeutic INRrange for various clinical situations is listed below: Clinical Situation INR range Pulmonary e mbolism treatment (2.0-3.0)Venous thrombosis treatmentVenous thrombosis prophylaxis (high risk surgery)Prevention of systemic embolism from: Acute myocardial infarction Valvular heart disease Atrial fibrillation Mechanical prosthetic heart valves (2.5-3.5) IS PATIENT ON ANTICOAGULANTS? NTHROMBOPLASTIN TIME [id number] 23:16:00* Test Item Value Reference Range Comments THROMBOPLASTIN TIME PARTIAL (test code=PTT) 27.9 seconds 25.5-34.3 Therapeutic Range for patients on Heparin Therapy is 2 to2.5 times their baseline PTT level. IS PATIENT ON ANTICOAGULANTS? NLACTIC [id number] 22:24:00* Test Item Value Reference Range Comments LACTIC ACID (test code=LACT) 4.6 MMOL/L 0.4-1.9 Results called to RN YASIR WOOIN 12/05/18 2224Critical results verified and read back by Nurse? Y - CT CHEST [id number] 22:03:00 Name: STACY PIZARRO [facility] : 1960 Age/S: 58 / M [address] [facility] Unit #: [id number] Loc: [place] [address] Phys: Kenzie Hernandez MD Acct: [id number] Dis Date: Status: REG ER PHONE #: [phone] Exam Date: 12/05/20182149 FAX #: [phone] Reason: left sided chest pain, hypoxia EXAMS: CPT CODE: [id number] CT CHEST W/CONTRAST 84215 REASON FOR EXAM: left sided chest pain, hypoxia EXAM ORDER DATE: 12/05/2018 8:52 PM Ordering M.Kd: Kenzie Hernandez MD PROCEDURE: - CT CHEST W/CONTRAST FINDINGS: CT images of the chest were obtained with IV contrast. Reconstructed sagittal and coronal images of the chest were provided for interpretation. Dose reduction techniques were applied. The heart size is within normal limits. No evidence of pericardial effusion The thoracic aorta is unremarkable. No evidence of dissection or aneurysmal dilatation. No filling defect seen within the main or lobar pulmonary arteries to suggest pulmonary embolus. No evidence of mediastinal or hilar adenopathy. The lungs are clear. No evidence of pleural effusion IMPRESSION: Extensive subcutaneous emphysema along the left chest wall. Multiple posterior left rib fractures (8th-12th). Small (less than 5%) left pneumothorax with atelectasis at the left base. Cirrhosis of the liver with dense ascites adjacent to the liver and spleen. Dr Hernandez was informed of the findings by phone at 10:00 PM FOR INTERNAL CODING PURPOSES ONLY RESULT CODE: CVR at 2203 Reported and signed by: Karthik Ruiz M.D. CC: Kenzie Hernandez MD Technologis t:DANII RUFFIN RT(R),RDMS,CT CTDI: DLP: Trnscb Date/Time: (2202) Diann Orig Print D/T: S: 12/05/2018 (2 207) CTDI: DLP: PAGE 1 Signed Rep ort - XR CHEST 1 [id number] 21:24:00 Name: STACY PIZARRO [facility] : 1960 Age/S:58 /M [address] [facility] Unit#:[id number] Loc: [place] [address] Phys: Kita Hernandez mmad, MD Dis Date: PHONE #: [phone] Status: REG ER FAX #: [phone] Exam Date: 12/05/2018 Re ason: left sided chest pain fall EXAMS: CPT CODE: [id number] XR CHEST 1 V [id number] REASON FOR EXAM: left sided chest pain fall EXAM ORDER DATE: 12/05/2018 8:00 PM Kaiden tadeo M.D.: Kenzie Hernandez MD PROCEDURE: - XR CHEST 1 V COMPARISON: FINDINGS: Portable AP frontal view of the est obtained at 8:35 PM shows patchy atelectasis of the left base. There i s no evidence of effusion. The heart size is within normal limits. Pulmona ry vasculatures are unremarkable. IMPRESSION: Mild subcut aneous emphysema along the left lateral chest wall suggestive of possibl e pneumothorax associated with multiple left-sided rib fractures althoug h no direct confirmation of a pneumothorax seen on the supine chest x-ra y at 2123 Reported and signed by: Karthik Ruiz M.D. CC: Kenzie Haney MD Technologist: CONCHA RUFFIN SA(R),RDMS,CT Trnscrpt Data: 12/05/2018 (2123) Светлана TORRES Orig Print D/T: S: 12/05/2018 (8780) PAGE 1 Signed Report COMPREHENSIVE METABOLIC [id number] 20:54:00* Test Item Value Reference Range Comments SODIUM (test code=NA) 137 mmol/L 135-148 POTASSIUM (test code=K) 5.6 mmol/L 3.5-5.1 CHLORIDE (test code=CL) 100 mmol/L 101-109 CARBON DIOXIDE (test code=CO2) 21.4 mmol/L 21-32 ANION GAP (test code=GAP) 21 mmol/L 10-20 GLUCOSE (test code=GLU) 144 mg/dL 74-106 BLOOD UREA NITROGEN (test code=BUN) 11 mg/dL 3-21 CREATININE (test code=CREAT) 1.01 mg/dL 0.55-1.3 BUN/CREATININE RATIO (test code=BUN/CREA) 10.9 10-20 TOTAL PROTEIN (test code=PROT) 8.1 g/dL 6.5-8.4 ALBUMIN (test code=ALB) 4.1 g/dL 3.4-4.8 GLOBULIN (test code=GLOB) 4.0 G/DL 1-10 ALBUMIN/GLOBULIN RATIO (test code=A/G) 1.0 RATIO 0.75-1.50 CALCIUM (test code=CA) 9.6 mg/dL 8.4-10.2 BILIRUBIN TOTAL (test code=BILT) 0.90 mg/dL 0.0-1.0 SGOT/AST (test code=AST) 46 U/L 6-32 SGPT/ALT (test code=ALT) 31 U/L 12-78 Note: Change in REFERENCE RANGE due to new reagent method. ALKALINE PHOSPHATASE TOTAL (test code=ALKP) 84 U/L 38-126 COMPREHENSIVE METABOLIC [id number] 20:51:00* Test Item Value Reference Range Comments SODIUM (test code=NA) 137 mmol/L 135-148 POTASSIUM (test code=K) 5.6 mmol/L 3.5-5.1 CHLORIDE (test code=CL) 100 mmol/L 101-109 CARBON DIOXIDE (test code=CO2) 21.4 mmol/L 21-32 ANION GAP (test code=GAP) 21 mmol/L 10-20 GLUCOSE (test code=GLU) 144 mg/dL 74-106 BLOOD UREA NITROGEN (test code=BUN) 11 mg/dL 3-21 CREATININE (test code=CREAT) 1.01 mg/dL 0.55-1.3 BUN/CREATININE RATIO (test code=BUN/CREA) 10.9 10-20 TOTAL PROTEIN (test code=PROT) gram/dL 6.4-8.2 ALBUMIN (test code=ALB) g/dL 3.4-5.0 GLOBULIN (test code=GLOB) g/dL 2.7-4.2 ALBUMIN/GLOBULIN RATIO (test code=A/G) 0.75-1.50 CALCIUM (test code=CA) 9.6 mg/dL 8.4-10.2 BILIRUBIN TOTAL (test code=BILT) mg/dL 0.2-1.2 SGOT/AST (test code=AST) IUnit/L 15-37 SGPT/ALT (test code=ALT) U/L 10-69 ALKALINE PHOSPHATASE TOTAL (test code=ALKP) IUnit/L 45-117 CBC W/AUTO [id number] 20:46:00* Test Item Value Reference Range Comments WHITE BLOOD CELL (test code=WBC) 16.3 K/mm3 4.5-12.5 RED BLOOD CELL (test code=RBC) 3.87 mill/mm3 4.0-5.8 HEMOGLOBIN (test code=HGB) 13.8 gram/dL 13.0-17.5 HEMATOCRIT (test code=HCT) 39.6 % 42.0-52.0 MEAN CELL VOLUME (test code=MCV) 102.3 fL 80-98 MEAN CELL HGB (test code=MCH) 35.7 picogram 27.0-33.0 MEAN CELL HGB CONCETRATION (test code=MCHC) 34.8 gram/dL 33.0-36.0 RED CELL DISTRIBUTION WIDTH (test code=RDW) 13.0 % 11.6-16.2 RED CELL DISTRIBUTION WIDTH SD (test code=RDW-SD) 48.9 fL 39.2-49.5 PLATELET COUNT (test code=PLT) 232 K/mm3 150-450 MEAN PLATELET VOLUME (test code=MPV) 10.0 fL 6.7-11.0 NEUTROPHIL % (test code=NT%) 84.3 % 39.0-69.0 LYMPHOCYTE % (test code=LY%) 7.2 % 25.0-55.0 MONOCYTE % (test code=MO%) 8.2 % 0.0-10.0 EOSINOPHIL % (test code=EO%) 0.1 % 0.0-5.0 BASOPHIL % (test code=BA%) 0.2 % 0.0-1.0 NEUTROPHIL # (test code=NT#) 13.75 K/mm3 1.8-7.7 LYMPHOCYTE # (test code=LY#) 1.18 K/mm3 1.0-5.0 MONOCYTE # (test code=MO#) 1.33 K/mm3 0-0.8 EOSINOPHIL # (test code=EO#) 0.01 K/mm3 0.0-0.5 BASOPHIL # (test code=BA#) 0.03 K/mm3 0.0-0.2 MANUAL DIFF REQUIRED (test code=MDIFF) NO
[2019-02-21 13:10] VITALS: BP 128/91
--- NOTE | 2019-02-21 21:09 | Operative Report ---
DATE OF PROCEDURE: 02/21/2019 SURGEON: Tyler Ornelas MD PROCEDURE: EGD with biopsies and colonoscopy with polypectomy. INDICATIONS FOR EGD: The patient is status post PEG tube placement. The patient is now swallowing well other than from mild dysphagia to solids, for EGD dilatation and G tube removal. INDICATION FOR COLONOSCOPY: Colorectal cancer screening. MEDICATION: The patient was done under MAC. Please see anesthesiologist's note. PROCEDURE IN DETAIL: With the patient in the supine position, a flexible fiberoptic Olympus gastroscope was introduced into the esophagus under direct visualization without any difficulty. There was some patchy erythema noted in distal esophagus. A mild stricture was noted at the GE junction that was dilated to size 48-Hungarian Johnson. The scope was then advanced with ease into the stomach traversing a small hiatal hernia. There was two submucosal nodules noted in the hiatal hernia sac and those were biopsied. The scope was then advanced with ease and the mucosa overlying the antrum and the body revealed some patchy areas of erythema and low-grade to moderate edema and biopsies were obtained sent to stain for H. pylori. The bumper of the G-tube was noted in the distal body of the stomach. The pylorus was intubated with ease and the scope was advanced all the way to the second portion of the duodenum. The scope was then withdrawn slowly mucosa overlying the proximal second portion and the duodenal bulb appeared to be within normal limits. Biopsies were obtained to rule out sprue. The scope was then withdrawn back into the stomach and retroflexed mucosa overlying the fundus and cardia appeared to be within normal limits. The scope was then straightened out and the G-tube was then removed per the pull-traction method. The patient tolerated procedure well. IMPRESSION: 1. Distal esophagitis, mild. 2. Mild stricture at GE junction dilated to size 48-Hungarian Johnson. 3. Small hiatal hernia. Minute submucosal nodules, hiatal hernia sac biopsied. 4. Probably gastritis, biopsied, biopsies sent to stain for H. pylori. 5. PEG tube removed per the pull-traction method. 6. Rule out sprue. PLAN: Follow up histology. Continue Protonix 40 mg one p.o. q.a.m. before meal. PROCEDURE IN DETAIL: The patient was then turned around and after adequate lubrication of the anal canal, a flexible fiberoptic Olympus colonoscope was inserted into the rectum with ease and advanced all the way to the cecum. It was then withdrawn slowly. Mucosa overlying the cecum appeared to be within normal limits. There were some scattered diverticular disease noted throughout the colon. One polyp was snared from the ascending colon. One polyp was snared from the descending colon. Four polyps were hot biopsied from the sigmoid colon and two polyps were hot biopsied from the rectum. Scope was then retroflexed into the distal rectum and small internal hemorrhoids were noted, none of which was actively bleeding. The scope was then straightened out, it was subsequently withdrawn. The patient tolerated the procedure well. IMPRESSION: 1. Diverticulosis. 2. Ascending colon polyp snared. 3. Descending colon polyp snared. 4. Sigmoid colon polyps x4 hot biopsied. 5. Internal hemorrhoids none actively bleeding. PLAN: Follow up histology. Initiate high-fiber, low-fat diet. Initiate high-fiber supplement. The patient might benefit from a followup colonoscopy in 3 years. Tyler Ornelas MD [facility] /[id number] cc: Thanh Alvarado MD
== END | disposition home or self-care (01) ==
LOC: OR 08:52
PROVIDERS: ATTEND Internal Medicine Gastroenterology
DX: Z12.11 Encounter for screening for malignant neoplasm of colon (principal); K70.30 Alcoholic cirrhosis of liver without ascites; R10.10 Upper abdominal pain, unspecified; R19.7 Diarrhea, unspecified; I85.00 Esophageal varices without bleeding; Z68.1 Body mass index [BMI] 19.9 or less, adult; Z43.1 Encounter for attention to gastrostomy; K20.9 Esophagitis, unspecified; K22.2 Esophageal obstruction; K44.9 Diaphragmatic hernia without obstruction or gangrene; K57.30 Diverticulosis of large intestine without perforation or abscess without bleeding; K63.5 Polyp of colon; K64.8 Other hemorrhoids; D12.2 Benign neoplasm of ascending colon; D12.4 Benign neoplasm of descending colon
CPT/HCPCS: 43239; 43247; 43450; 45384; 45385; J1610; J1980; J2001; J2250; J2704; J2710; 43246

== ENCOUNTER → 2019-03-27 | Outpatient (CLI) | payer BC ==
[~2019-03-27] MED LIST changes: -GLUCAGON FOR INJ 1 MG VIAL ONE; -HYOSCYAMINE SULFATE 0.5 MG/ML INJ ONE; -KETAMINE HCL INJ 50 MG/ML 10 ML VIAL ONE; -LIDOCAINE HCL 2% LOCAL INJ 5 ML SDV VIAL INJ ONE; -MIDAZOLAM HCL 2 MG/2 ML VIAL ONE; -NEOSTIGMINE 1 MG/ML 10ML VIAL ONE; -PROPOFOL IV EMULSION 10 MG/ML 50 ML VIAL ONE
--- NOTE | 2019-03-27 10:44 | Diagnostic Imaging Report ---
Abdominal ultrasound. History: Cirrhosis Comparison: <None available>. Discussion: Transverse and longitudinal images of the abdomen were obtained demonstrating a liver of normal size with increased echogenicity measuring 12.6 cm in length. The portal vein is patent with hepatopetal flow and is within normal limits measuring 9 mm in diameter. The biliary tree is within normal limits with the common bile duct measuring 3 mm in diameter. The gallbladder is normal without evidence of stones, wall thickening or pericholecystic fluid. The sonographic Sylvester's sign was negative. The kidneys are normal in size and echogenicity bilaterally without evidence of hydronephrosis, stones, or mass. The right kidney measures 10.6 x 3.7 x 5.2 cm and the left kidney measures 10.3 x 5.1 x 5.2 cm in length. The spleen is normal in size and appearance measuring 6.6 x 5.4 x 5.9 cm. The pancreatic <head and body> are visualized and are normal in appearance. The abdominal aorta is within normal limits. The IVC is patent. Trace amount of fluid present at the right lobe of the liver. IMPRESSION: 1. Increased echogenicity of the liver. 2. Trace amount of fluid adjacent to the right lobe of the liver. Signed by: Dr. Oseas Davis DO on 03/27/2019 10:41 AM
== END ==
LOC: US 09:11
PROVIDERS: ATTEND Internal Medicine Gastroenterology
DX: K70.30 Alcoholic cirrhosis of liver without ascites (principal); R10.10 Upper abdominal pain, unspecified
CPT/HCPCS: 76700

== ENCOUNTER → 2019-05-02 | Outpatient (CLI) | payer BC ==
[~2019-05-02] MED LIST changes: +FENTANYL CITRATE/PF 100MCG/2 ML INJ ONE; +MIDAZOLAM HCL 2 MG/2 ML VIAL ONE
[2019-05-02 11:09] LABS: INR 0.92; PARTIAL THROMBOPLASTIN TIME 35.3 seconds (23.8-35.5); PROTHROMBIN TIME 12.8 seconds (11.9-14.5)
--- NOTE | 2019-05-02 13:08 | Diagnostic Imaging Report ---
Ultrasound guided liver biopsy, 05/02/2019. History: Echogenic liver, abnormal LFTs. Comparison: Abdominal ultrasound 03/27/2019. EBL: <1 cc. Specimen: 2 core biopsy samples, placed in formalin. Conscious sedation: 0.5 mg Versed, 25 mg fentanyl IV. Patient's vital signs were continuously monitored by nursing and remained stable throughout. Physician intraservice sedation time: 20 minutes. Discussion: Informed consent was obtained. Preprocedural H&P and timeout were performed. The patient's abdomen was prepped and draped in a sterile fashion. The skin was anesthetized with 1% lidocaine without epinephrine. Using ultrasound guidance, the right hepatic lobe was sampled randomly using an 18-gauge core biopsy gun. 2 passes were made and samples were sent to pathology. Postprocedure image demonstrates no evidence of hematoma or active extravasation. The patient tolerated procedure well without evidence of immediate complication. IMPRESSION: Successful ultrasound guided liver core biopsy with conscious sedation. Signed by: Gadiel Guillermo on 05/02/2019 1:04 PM
== END ==
LOC: US 10:23
PROVIDERS: ATTEND Internal Medicine Gastroenterology
DX: K74.60 Unspecified cirrhosis of liver (principal)
CPT/HCPCS: 36415; 47000; 76942; 85049; 85610; 85730; 88307; J2250; J3010; 88313

== ENCOUNTER → 2022-12-08 | Day surgery (SDC) | payer BC ==
[~2022-12-08] MED LIST changes: +ACETAMINOPHEN 1000 MG/100 ML 0 ML IV ONE; +BUPIVACAINE HCL 0.5% INJ 30 ML VIAL INJ ONE; +CEFAZOLIN SODIUM 2 GM ONE; +DEXAMETHASONE SOD PHOS INJ 4 MG/ML SDV ONE; +HYDROMORPHONE 1MG/1ML INJ ONE; +KETOROLAC TROMETHAMINE 30 MG/ML VIAL ONE; +LIDOCAINE 1% W/EPINEPHRINE 20 ML VIAL ONE; +LIDOCAINE HCL 2% LOCAL INJ 5 ML SDV VIAL INJ ONE; +ONDANSETRON HCL INJ 2MG/ML 2ML 2 MG/ML VIAL ONE; +POVIDONE IODINE 0.05% 0.05 % ML PO ONE; +PROPOFOL IV EMULSION 10 MG/ML 20 ML VIAL ONE; +SEVOFLURANE INHAL SOLN 250 ML PEN BTL ONE
[2022-12-08 08:40] VITALS: BP 168/84
== END | disposition home or self-care (01) ==
LOC: OR 05:30
PROVIDERS: ATTEND Orthopaedic Surgery
DX: S83.232A Complex tear of medial meniscus, current injury, left knee, initial encounter (principal); S83.282A Other tear of lateral meniscus, current injury, left knee, initial encounter; M22.42 Chondromalacia patellae, left knee; M67.52 Plica syndrome, left knee; K76.89 Other specified diseases of liver; F17.200 Nicotine dependence, unspecified, uncomplicated; X58.XXXA Exposure to other specified factors, initial encounter; Z01.810 Encounter for preprocedural cardiovascular examination
CPT/HCPCS: 29880; 93005; J1100; J1170; J1885; J2001; J2250; J2405; J2704; J3010